=== PATIENT | female | born 1960 | race Caucasian/White ===

== ENCOUNTER 2020-09-02 11:50 | Outpatient (REF) | payer OTHER, SELFPAY | END 2020-09-02 11:51 | disposition home or self-care (01) | LOC: HO.LAB 11:50 | PROVIDERS: Visit Provider Internal Medicine | DX: Z20.828 Contact with and (suspected) exposure to other viral communicable diseases (principal) | CPT/HCPCS: C9803; U0003 ==

== ENCOUNTER 2022-06-28 18:23 | Emergency (ER) | payer OTHER, SELFPAY ==
[2022-06-28 18:28] VITALS: BP 135/80; PULSE 74; RESP 18; TEMP 36.2; O2SAT 100; BMI 27.4
[2022-06-28 21:49] LABS: MANUAL DIFF FLAG NO
[2022-06-28 21:52] LABS: Basophils Percent Auto 0.5 % (0-2); Eosinophils Absolute Auto 0.2 X10*3/uL (0.0-0.4); Eosinophils Percent Auto 2.7 % (0-4); Hematocrit 40.4 % (37.0-47.0); Hemoglobin 12.9 g/dl (12.0-16.0); Imm Gran Abs Auto 0.01 X10*3/uL (0.00-0.03); Imm Gran Pct Auto 0.2 % (0.0-0.4); Lymphocytes Percent Auto 30.7 % (20-40); Mean Corpuscular HGB Conc 31.9 g/dl (31.0-35.0); Mean Corpuscular Hemoglobin 26.3 pg (27.0-33.0); Mean Corpuscular Volume 82.3 fL (80.0-98.0); Mean Platelet Volume 9.8 fL (9.4-12.3); Monocytes Absolute Auto 0.6 X10*3/uL (0.1-1.2); Monocytes Percent Auto 9.2 % (2-11); Neutrophils Absolute Auto 3.7 x10*3/uL (2.0-8.3); Neutrophils Percent Auto 56.7 % (45-73); Platelet Count 257 X10*3/uL (160-400); Red Blood Count 4.91 X10*6/uL (4.20-5.50); Red Cell Distribution Width 12.6 % (11.0-16.0); White Blood Count 6.6 X10*3/uL (4.8-10.8)
[2022-06-28 22:11] LABS: Alanine Aminotransferase 27 U/L (0-31); Albumin Level 4.4 g/dL (3.5-5.0); Alkaline Phosphatase 79 U/L (39-117); Anion Gap 16 (12-20); Aspartate Amino Transferase 32 U/L (5-31); Bilirubin Total 0.3 mg/dL (0.0-1.0); Blood Urea Nitrogen 17 mg/dL (9-16); Calcium 9.7 mg/dL (8.4-10.2); Carbon Dioxide 23 mmol/L (22-29); Chloride 107 mmol/L (96-108); Creatinine Clr Calc Pharmacy 50.8; Estimated Glomerular Filt Rate 55; Glucose Random 181 mg/dL (60-115); Potassium 4.6 mmol/L (3.3-5.1); Sodium 141 mmol/L (135-145); Total Protein 7.4 g/dL (6.5-8.0)
--- NOTE | 2022-06-28 23:38 | ED.SKABFB ---
HPI - Skin/Abscess/Foreign Bdy General Chief complaint: Headache Stated complaint: lump on back Time Seen by Provider: 06/28/22 23:37 Source: patient Mode of arrival: ambulatory Limitations: language barrier History of Present Illness HPI narrative: 62-year-old female presents for evaluation for a lump on her back after removing a tick. She believes the tick has been there for approximately 3 days, and the tick was engorged when she removed it. She has itching at the site, and a lump, with fatigue and headache. MD complaint: rash and insect bite/sting Onset (ago): day(s) (3) Location: generalized Severity: moderate Severity scale (1-10): 5 Quality: aching, constant and pruritic Pain Consistency: constant Relieving factors: none Exacerbating factors: palpation and movement Context: witnessed insect bite Associated symptoms: itching, malaise and arthralgias Treatments prior to arrival: none Related Data Previous Rx's Medication Instructions Recorded doxycycline monohydrate 100 mg 100 mg PO BID 14 days #28 caps 06/29/22 capsule Allergies Allergy/AdvReac Type Severity Reaction Status Date / Time aspirin [Aspirin] Allergy Unknown STOMACH Verified 06/28/22 18:33 UPSET ibuprofen [From MOTRIN] Allergy Unknown epigastric Verified 06/28/22 18:33 upset From Pen-Vee K Allergy Mild RASH Uncoded 06/06/20 17:52 Review of Systems Review of Systems: Constitutional: No Fever, No Chills ENT/Mouth: No Ear Pain, No Hoarseness, No sore throat Eyes: No Eye Pain, No Swelling, No Redness, No Foreign Body Cardiovascular: No Chest Pain, No SOB Respiratory: No Cough, No Dyspnea Gastrointestinal: No Nausea, No Vomiting, No Diarrhea, No abdominal Pain Genitourinary: No Dysuria, No Hematuria Musculoskeletal: positive joint pain and body aches, No Joint Swelling Skin: No Skin lacerations, positive rash Neuro: No Weakness, No Numbness, No Paresthesias, No Loss of Consciousness, No Dizziness, positive Headache Psych: No Anxiety/Panic, No Depression Heme/Lymph: no easy bruising, no Lymphadenopathy Endocrine: No Polyuria, No Polydipsia Yes all other systems are reviewed and are negative [facility] Past Medical History Attestation statement: The following information was validated with the patient. Source: old records reviewed Social History Social History Advance Directives: No Advance Directives Information Provided: No Physical Exam Vital Signs: Vital Signs: Last Vital Signs Temp 97.2 F 06/28/22 18:28 Pulse 74 06/28/22 18:28 Resp 18 06/28/22 18:28 BP 135/80 06/28/22 18:28 Pulse Ox 100 06/28/22 18:28 O2 Del Method 06/28/22 18:28 BMI result Body Mass Index 27.4 Appearance: Alert. Oriented X3. No acute distress. Eyes: Pupils equal, round and reactive to light. ENT: Pharynx normal. Neck: Normal inspection. Neck supple. CVS: Normal heart rate and rhythm. Pulses normal. Respiratory: No respiratory distress. Breath sounds normal. Abdomen: Soft and nontender. Skin: Bull's-eye rash consistent with erythema migrans to the right flank, Skin warm and dry. Normal skin color. Normal skin turgor. Extremities: No lower extremity edema. Gait well-balanced well coordinated. Neuro: No motor deficit. No sensory deficit. Cranial nerves 2-12 intact. Course Course Course Narrative: 62-year-old female presents for rash consistent with erythema migrans, headache, myalgia, and fatigue after being bitten by a tick 3 days ago. She stated her symptoms started 2 days ago and noticed the tick last night. The tick was engorged, and she brought it in with her to the emergency department. She was in [place] when she got bitten by the tick, considering the high prevalence of Lyme disease in that area, I feel that treatment with doxycycline is appropriate based on her erythema migrans, headache, myalgia, and fatigue. Her CBC and chemistries are within normal limits, will order Lyme panel. Cranial nerves 2-12 intact, neurovascularly intact, alert oriented x4, lung sounds clear to auscultation all lobes. Afebrile, nontoxic. Patient does understand that if Lyme panel comes back positive for anaplasmosis that we will change her medication regimen to atovaquone and azithromycin. 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 Google translate utilized for discharge instructions. Patient verbalized understanding of and agrees plan for discharge home. Verbalizes understanding of signs and symptoms indicating need for emergent intervention. MDM - Skin/Abscess/Foreign Bdy MDM Narrative Medical decision making narrative: Lyme Differential Diagnosis Differential diagnosis: Likely abscess of skin or subcutaneous tissue, viral exanthem, urticaria, cellulitis, insect bites and contact dermatitis Medical Records Attestation: I reviewed the patient's medical records. Lab Data Attestation: I reviewed the patient's lab results. Result diagrams: 06/28/22 21:46 06/28/22 21:46 Labs: Lab Results 06/28/22 06/28/22 Range/Units 21:46 21:46 WBC 6.6 (4.8-10.8) X10*3/uL RBC 4.91 (4.20-5.50) X10*6/uL Hgb 12.9 (12.0-16.0) g/dl Hct 40.4 (37.0-47.0) % MCV 82.3 (80.0-98.0) fL MCH 26.3 L (27.0-33.0) pg MCHC 31.9 (31.0-35.0) g/dl RDW 12.6 (11.0-16.0) % Plt Count 257 (160-400) X10*3/uL MPV 9.8 (9.4-12.3) fL Immature Gran % (Auto) 0.2 (0.0-0.4) % Neut % (Auto) 56.7 (45-73) % Lymph % (Auto) 30.7 (20-40) % [place] % (Auto) 9.2 (2-11) % Eos % (Auto) 2.7 (0-4) % Baso % (Auto) 0.5 (0-2) % Lymph # (Auto) 2.0 (1.2-4.9) X10*3/uL [place] # (Auto) 0.6 (0.1-1.2) X10*3/uL Eos # (Auto) 0.2 (0.0-0.4) X10*3/uL Baso # (Auto) 0.0 (0.0-0.2) X10*3/uL Abs Immat Gran (auto) 0.01 (0.00-0.03) X10*3/uL Absolute Neuts (auto) 3.7 (2.0-8.3) x10*3/uL Absolute Nucleated RBC 0.000 (0.0-0.012) X10*3/uL Nucleated RBC % (auto) 0.0 (0.0-0.2) /100WBC Sodium 141 (135-145) mmol/L Potassium 4.6 (3.3-5.1) mmol/L Chloride 107 (96-108) mmol/L Carbon Dioxide 23 (22-29) mmol/L Anion Gap 16 (12-20) BUN 17 H (9-16) mg/dL Creatinine 1.01 (0.5-1.4) mg/dL Estim Creat Clear Calc 50.8 Estimated GFR 55 Random Glucose 181 H (60-115) mg/dL Calcium 9.7 (8.4-10.2) mg/dL Total Bilirubin 0.3 (0.0-1.0) mg/dL AST 32 H (5-31) U/L ALT 27 (0-31) U/L Alkaline Phosphatase 79 (39-117) U/L Total Protein 7.4 (6.5-8.0) g/dL Albumin 4.4 (3.5-5.0) g/dL Discharge Plan Discharge Clinical Impression: Tick bite of back, Acute Lyme disease, Erythema migrans (Lyme disease) Patient Disposition: Home, Self-Care Instructions: Lyme Disease (ED), Tick Bite (ED) Additional Instructions: You were evaluated for headache, muscle aches, fatigue, and a rash on your back after being bitten by a tick. Your symptoms are consistent with Lyme disease. We are treating you with doxycycline 100 mg twice a day for the next 14 days. Please take this medication as directed. This medication has a photosensitive reaction, please wear hat, sunscreen, and long sleeves while going outside to reduce at sun exposure. This medication will cause a rash with sun exposure. If your Lyme disease panel comes back positive for anaplasma OCs, we will change your medications to atovaquone and azithromycin. Follow-up with primary care physician as needed. Return to the emergency department for any new, concerning, or worsening symptoms. Prescriptions: New doxycycline monohydrate 100 mg capsule 100 mg PO BID 14 Days Qty: 28 0RF
[2022-06-29] VITALS: BP 177/97; PULSE 69; O2SAT 100
--- OUTSIDE RECORDS SUMMARY | 2022-06-29 | XMS_ITS | Continuity of Care Document ---
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, Aarti Arndt Primary Care Physician Encounter [facility] Date(s): 02/19/21 - 03/21/21 [facility] [address] [place] [id number]- Allergies, Adverse Reactions, Alerts Substance Reaction Severity Status doxycycline unknown Active aspirin GI Upset Active penicillins hives Persistent Moderate Active sulfonylureas rash Active thiazolidinediones eczema Active traMADOL1 [D]Nausea Active Stomach ache [D]Headache 1see visit note Immunizations Given and Recorded Vaccine Date Status Refusal Reason SARS-CoV-2 (COVID-19) mRNA BNT-162b2 vac 11/25/20 Given SARS-CoV-2 (COVID-19) mRNA BNT-162b2 vac 11/04/20 Given influenza virus vaccine, inactivated 06/27/20 Given influenza virus vaccine, inactivated 08/09/18 Given influenza virus vaccine, inactivated 07/12/17 Given influenza virus vaccine, inactivated 09/22/16 Given influenza virus vaccine, inactivated 07/10/14 Given influenza virus vaccine, inactivated1 06/08/13 Given influenza virus vaccine, inactivated2 07/06/12 Given influenza virus vaccine, inactivated3 07/29/11 Given influenza virus vaccine, inactivated4 07/02/10 Given Zoster Vaccine Live 12/10/14 Given pneumococcal 23-valent vaccine5 02/21/10 Given Influenza Vaccine (oldterm)6 12/19/09 Given tetanus-diphtheria toxoids (Td)7 12/19/09 Given 1Result Comment: [06/08/2013] Flulaval [id number]. VIS in [place] [id number] Note: VIS [id number] Note: VIS GIVEN VIS DATE 04/14/[id number] Note: VIS GIVEN 04/29/10 [id number] Note: vis [id number] Note: vis 04/287Admin Note: vis 03/25 Medications albuterol 0.083% inhalation solution 3 mL = 2.5 mg, Inhalation, 2 times a day, PRN Wheezing/Shortness of Breath, # 180 each, 3 Refills, Maintenance, 01/11/20 8:57:00 EDT, Inhalation Solution, [facility]/pharmacy #207, 157.48, cm, 07/12/19 10:08:00 EDT, Height Start Date: 01/11/20 Stop Date: 01/05/21 Status: OrderedArtificial Tears preserved solution 1 drops, Eyes, Both, 2 times a day, PRN for dry eyes, # 30 mL, 1 Refills, Maintenance, 10/02/20 13:31:00 EST, Solution, [facility]/pharmacy #207, Partial fill upon patient request if the prescription is for a schedule II opioid drug., 1 drops Eyes, Both 2 t... Start Date: 10/02/20 Status: Orderedcapsaicin 0.025% topical cream 1 application, Topically, 2 times a day, avoid contact with face and eyes, # 45 Gm, 5 Refills, Maintenance, 01/11/20 8:57:00 EDT, Cream, [facility]/pharmacy #207, instructions in [place], 1 application Topically 2 times a day,Instr:avoid contact with face a... Start Date: 01/11/20 Status: OrderedClaritin 10 mg oral tablet 10 mg, 1, tablet, By Mouth, Daily, Label in [place], # 90 tablet, Refills 3, Tot. Refills 3, Maintenance, 01/11/20 8:58:00 EDT, Route to Pharmacy Electronically, [facility]/pharmacy #207, 157.48, cm, 07/12/19 10:08:00 EDT, Height Start Date: 01/11/20 Stop Date: 01/05/21 Status: Ordereddocusate-senna 50 mg-187 mg oral tablet 2 tablet, By Mouth, Daily at bedtime, PRN Constipation, # 60 tablet, 11 Refills, Maintenance, 05/30/20 11:37:00 EDT, Tablet, [facility]/pharmacy #207, 2 tablet By Mouth Daily at bedtime,PRN:Constipation, 157.48, cm, 05/30/20 11:02:00 EDT, Height Start Date: 05/30/20 Status: OrderedFLUoxetine 20 mg oral capsule 20 mg, 1, capsule, By Mouth, Daily, # 90 capsule, Refills 3, Tot. Refills 3, Maintenance, 01/11/20 8:57:00 EDT, Route to Pharmacy Electronically, [facility]/pharmacy #[id number], 157.48, cm, 07/12/19 10:08:00 EDT, Height Start Date: 01/11/20 Status: OrderedFreestyle Lite Lancets See Instructions, # 100 each, Refills 11, Tot. Refills 11, Maintenance, Dx: check twice daily, 09/09/20 17:41:00 EST, Supply, 157.48, cm, 08/09/20 13:26:00 EST, Height, 57.73, kg, 07/19/20 15:56:00 EDT, Dry Weight Start Date: 09/09/20 Status: OrderedFreestyle Lite Monitor See Instructions, # 1 each, Maintenance, Dx: dm2, 1-2 times daily checks, 09/09/20 17:40:00 EST, Compound, 157.48, cm, 08/09/20 13:26:00 EST, Height, 57.73, kg, 07/19/20 15:56:00 EDT, Dry Weight Start Date: 09/09/20 Status: OrderedFreestyle Lite Test Strips See Instructions, # 100 each, Refills 11, Tot. Refills 11, Maintenance, Dx: check twice daily, 09/09/20 17:41:00 EST, Supply, 157.48, cm, 08/09/20 13:26:00 EST, Height, 57.73, kg, 07/19/20 15:56:00 EDT, Dry Weight Start Date: 09/09/20 Status: Orderedgabapentin 600 mg oral tablet 1 tablet = 600 mg, By Mouth, 2 times a day, # 90 tablet, 2 Refills, Maintenance, 05/02/20 9:12:00 EDT, Tablet, [facility]/pharmacy #[id number], note increased dose, 157.48, cm, 07/12/19 10:08:00 EDT, Height Start Date: 05/02/20 Status: Orderedhydrocortisone 2.5% topical cream 1 application, Topically, 3 times a day, apply to rash on neck. instr [place], # 20 Gm, 0 Refills, Maintenance, 02/25/21 16:46:00 EDT, Cream, [facility]/pharmacy #[id number], Partial fill upon patient request if the prescription is for a schedule II opioid drug.,... Start Date: 02/25/21 Status: OrderedLantus Solostar Pen 100 units/mL subcutaneous solution = 10 units, Subcutaneous Injection, Daily, # 10 mL, 11 Refills, Maintenance, 09/09/20 17:43:00 EST, Solution, [id number], [place]ian label please, 157.48, cm, 08/09/20 13:26:00 EST, Height, 57.73,kg, 07/19/20 15:56:00 EDT, Dry Weight Start Date: 09/09/20 Status: Orderedlevothyroxine 75 mcg (0.075 mg) oral tablet 1 tablet = 75 mcg, By Mouth, Daily, # 90 tablet, 3 Refills, Maintenance, 10/02/20 13:30:00 EST, Tablet, [id number], Dose changes from 88mcg to 75mcg 10/02/20, 157.48, cm, 08/09/20 13:26:00 EST, Height, 57.73, kg, 07/19/20 15:56:00 EDT, Dry Weight Start Date: 10/02/20 Status: Orderedlidocaine 5% topical film 1 patch, Topically, Daily, PRN Pain , Mild, remove after 12 hours, # 30 patch, 5 Refills, Maintenance, 05/02/20 9:17:00 EDT, Film, [id number], 1 patch Topically Daily,PRN:Pain , Mild,Instr:remove after 12 hours, 157.48, cm, 07/12/19 10:08:00 E... Start Date: 05/02/20 Status: Orderedlisinopril 5 mg oral tablet 5 mg, 1, tablet, By Mouth, Daily, to protect kidneys, # 90 tablet, Refills 3, Tot. Refills 3, Maintenance, 05/02/20 9:22:00 EDT, Route to Pharmacy Electronically, [facility]/pharmacy #207, 157.48, cm, 07/12/19 10:08:00 EDT, Height Start Date: 05/02/20 Status: OrderedmetFORMIN 500 mg oral tablet 1 tablet = 500 mg, By Mouth, 2 times a day, # 60 tablet, 5 Refills, Maintenance, 09/18/20 14:17:00 EST, Tablet, [facility]/pharmacy #[id number], dose change 08/09/20, 157.48, cm, 08/09/20 13:26:00 EST, Height, 57.73, kg, 07/19/20 15:56:00 EDT, Dry Weight Start Date: 09/18/20 Status: OrderedMiraLax oral powder for reconstitution = 17 Gm, By Mouth, Daily, dissolve in water before taking, # 527 Gm, 1 Refills, Maintenance, 01/11/20 8:59:00 EDT, REC Powder, [facility]/pharmacy #[id number], 17 Gm By Mouth Daily,Instr:dissolve in water before taking, 157.48, cm, 07/12/19 10:08:00 EDT, Height Start Date: 01/11/20 Status: Orderedmultivitamin Multiple Vitamins oral capsule 1 capsule, By Mouth, Daily, # 90 capsule, 3 Refills, Maintenance, 03/06/21 10:22:00 EDT, Capsule, [facility]/pharmacy #[id number], Partial fill upon patient request if the prescription is for a schedule II opioid drug., 1 capsule By Mouth Daily, 157.48, cm, ... Start Date: 03/06/21 Status: Orderedmupirocin 2% topical ointment 1 application, Topically, 2 times a day, apply to vulvar bump only. instr citizen [place], # 15 Gm, 0 Refills, Maintenance, 02/25/21 16:46:00 EDT, Ointment, [facility]/pharmacy #[id number], Partial fill upon patient request if the prescription is for a schedule II opioid... Start Date: 02/25/21 Stop Date: 03/11/21 Status: Orderedomeprazole 20 mg oral enteric coated capsule 1 capsule = 20 mg, By Mouth, Daily, # 90 capsule, 1 Refills, Maintenance, 01/08/21 14:58:00 EDT, EC Capsule, [facility]/pharmacy #207, 157.48, cm, 08/09/20 13:26:00 EST, Height, 57.73, kg, 07/19/20 15:56:00 EDT, Dry Weight Start Date: 01/08/21 Status: OrderedPen [place], 30 G x 8 mm BD Ultra Fine II See Instructions, # 30 each, Refills 11, Tot. Refills 11, Maintenance, Dx: Dm2 uncontrolled, once daily injection, 09/09/20 17:44:00 EST, Supply, 157.48, cm, 08/09/20 13:26:00 EST, Height, 57.73, kg, 07/19/20 15:56:00 EDT, Dry Weight Start Date: 09/09/20 Status: OrderedpredniSONE 10 mg oral tablet 4 tablet = 40 mg, By Mouth, Daily, # 12 tablet, 0 Refills, Maintenance, 02/19/21 5:10:00 EDT, Tablet, [facility]/pharmacy #207, Partial fill upon patient request if the prescription is for a schedule II opioid drug., 157.48, cm, 08/09/20 13:26:00 EST, Heigh... Start Date: 02/19/21 Stop Date: 02/22/21 Status: Orderedsimvastatin 20 mg oral tablet 20 mg, 1, tablet, By Mouth, Daily at bedtime, # 30 tablet, Refills 11, Tot. Refills 11, Maintenance,01/11/20 8:57:00 EDT, Route to Pharmacy Electronically, [facility]/pharmacy #[id number], 157.48, cm, 07/12/19 10:08:00 EDT, Height Start Date: 01/11/20 Status: OrderedsitaGLIPtin 100 mg oral tablet 1 tablet = 100 mg, By Mouth, Daily, # 30 tablet, 11 Refills, Maintenance, 01/11/20 8:57:00 EDT, Tablet, [facility]/pharmacy #[id number], 157.48, cm, 07/12/19 10:08:00 EDT, Height Start Date: 01/11/20 Status: OrderedVentolin HFA 108 mcg/inh inhalation aerosol with adapter 1 puffs, Inhalation, 4 times a day, PRN for wheezing, PLEASE DISPENSE VENTOLIN, NOT PROAIR, CLIENT DOES NOT TOLERATE PRO AIR, # 18 Gm, 11 Refills, Maintenance, 01/11/20 8:57:00 EDT, Aerosol, [id number], 157.48, cm, 07/12/19 10:08:00 EDT, Height Start Date: 01/11/20 Status: Ordered Problem List Condition Effective Dates Status Health Status Informant Anemia(Confirmed) Active Asthma(Confirmed)1 Active Cataract(Confirmed) Active Chronic mastoiditis(Confirmed)2 Active Diabetes mellitus - adult 10/22/11 Active onset(Confirmed) Ear pain(Confirmed)3, 4 Active Rash(Confirmed) Active Elevated sed rate(Confirmed) Active Hypothyroid(Confirmed) Active Impaired fasting glycaemia(Confirmed) 08/2009 Active Low back pain(Confirmed)1980 Active Lumbar spinal stenosis(Confirmed)6 Active Obstructive sleep apnea(Confirmed) 11/02/11 Active Snoring symptom(Confirmed)7 2011 Active 1per pulm [id number] Right ear surg 12/20103h/o hearing loss, rt side4 chronic, Rt, seen by ENT5s/p forcepts [id number] on 2010 [id number] to severe on 2011 sleep study Social History Social History Type Response Smoking Status Light tobacco smoker entered on: 11/23/13 Sex
--- OUTSIDE RECORDS SUMMARY | 2022-06-29 | XMS_ITS | Continuity of Care Document ---
:1960 Author Organization [facility] Address [address] [place] [address]- Care Team Providers Name Role Phone Cam BAÑUELOS, Aarti Arndt Primary Care Physician [place] [facility] [place]21 [facility] [address] [place] [id number]- Attending Physician: Not on Staff, Attending MD Allergies, Adverse Reactions, Alerts Substance Reaction Severity Status doxycycline unknown Active thiazolidinediones eczema Active traMADOL1 [D]Nausea Active Stomach ache [D]Headache aspirin GI Upset Active penicillins hives Persistent Moderate Active sulfonylureas rash Active 1see visit note Immunizations Given and Recorded [...] (Td)7 12/19/09 Given 1Result Comment: [06/08/2013] Flulaval [id number]. VIS in Bolivian [id number] Note: VIS [id number] Note: VIS GIVEN VIS DATE 04/14/1162dfiukzv3Zkuwn Note: VIS GIVEN 04/29/10 [id number] Note: vis [id number] Note: vis 04/287Admin Note: vis 03/25 Medications albuterol 0.083% inhalation solution 3 mL = 2.5 mg, Inhalation, 2 times a day, PRN Wheezing/Shortness of Breath, # 180 each, 3 Refills, Maintenance, 04/25/21 10:01:00 EDT, Inhalation Solution, [facility]/pharmacy #[id number], 157.48, cm, 03/06/21 9:17:00 EDT, Height, 57.73, kg, 07/19/20 15:56:00 EDT,... Start Date: 04/25/21 Stop Date: 04/20/22 Status: OrderedAlcohol Pads See Instructions, # 200 each, Refills 5, Tot. Refills 5, Maintenance, use as directed for Type 2 Diabetes Mellitus, twice daily checks, 06/09/21 11:15:00 EDT, Supply, 157.48, cm, 06/09/21 10:45:00 EDT,Height, 57.73, kg, 07/19/20 15:56:00 EDT, Dry Weight Start Date: 06/09/21 Stop Date: 12/06/21 Status: OrderedArtificial Tears preserved solution 1 drops, Eyes, Both, 2 times a day, PRN for dry eyes, # 30 mL, 2 Refills, Maintenance, 06/09/21 11:18:00 EDT, Solution, [facility]/pharmacy #[id number], Partial fill upon patient request if the prescription is for a schedule II opioid drug., 1 drops Eyes, Both 2 t... Start Date: 06/09/21 Status: Orderedcapsaicin 0.025% topical cream 1 application, Topically, 2 times a day, avoid contact with face and eyes, # 45 Gm, 5 Refills, Maintenance, 04/25/21 10:01:00 EDT, Cream, [id number], instructions in Bolivian, 1 application Topically 2 times a day,Instr:avoid contact with face... Start Date: 04/25/21 Status: OrderedClaritin 10 mg oral tablet 10 mg, 1, tablet, By Mouth, Daily, Label in Bolivian, # 90 tablet, Refills 3, Tot. Refills 3, Maintenance, 04/25/21 10:01:00 EDT, Route to Pharmacy Electronically, [facility]/pharmacy #[id number], 157.48, cm, 03/06/21 9:17:00 EDT, Height, 57.73, kg, 07/19/20 15:56:... Start Date: 04/25/21 Stop Date: 04/20/22 Status: Ordereddocusate-senna 50 mg-187 mg oral tablet 2 tablet, By Mouth, Daily at bedtime, PRN Constipation, # 60 tablet, 11 Refills, Maintenance, 04/25/21 10:03:00 EDT, Tablet, [facility]/pharmacy #[id number], 2 tablet By Mouth Daily at bedtime,PRN:Constipation, 157.48, cm, 03/06/21 9:17:00 EDT, Height, 57.73, kg,... Start Date: 04/25/21 Status: OrderedFLUoxetine 20 mg oral capsule 20 mg, 1, capsule, By Mouth, Daily, # 90 capsule, Refills 3, Tot. Refills 3, Maintenance, 04/25/21 10:01:00 EDT, [id number], cm, 03/06/21 9:17:00 EDT, Height, 57.73, kg, 07/19/20 15:56:00 EDT, Dry Weight Start Date: 04/25/21 Status: OrderedFreestyle Lite Lancets See Instructions, # [...] 2 Refills, Maintenance, 05/02/20 9:12:00 EDT, Tablet, [facility]/pharmacy #[id number], note increased dose, 157.48, cm, 07/12/19 10:08:00 EDT, Height Start Date: 05/02/20 Status: Orderedhydrocortisone 2.5% topical cream 1 application, Topically, 3 times a day, apply to rash on neck. instr telugu, # 20 Gm, 0 Refills, Maintenance, 04/28/21 19:30:00 EDT, Cream, [id number], Partial fill upon patient request if the prescription is for a schedule II opioid drug.,... Start Date: 04/28/21 Status: OrderedLantus Solostar Pen 100 units/mL subcutaneous solution = 18 units, Subcutaneous Injection, Daily, # 12 mL, 11 Refills, Maintenance, 06/17/21 12:13:00 EDT, Solution, [facility]/pharmacy #[id number], Bolivian label please. Dose increase to 18u 06/17/21, 157.48, cm, 06/09/21 10:45:00 EDT, Height, 57.73, kg, 07/19/20 15:56:... Start Date: 06/17/21 Status: Orderedlevothyroxine 75 mcg (0.075 mg) oral tablet 1 tablet = 75 mcg, By Mouth, Daily, # 90 tablet, 3 Refills, Maintenance, 10/02/20 13:30:00 EST, Tablet, [facility]/pharmacy #[id number], Dose changes from 88mcg to 75mcg 10/02/20, 157.48, cm, 08/09/20 13:26:00 EST, Height, 57.73, kg, 07/19/20 15:56:00 EDT, Dry Weight Start Date: 10/02/20 Status: Orderedlisinopril 5 mg oral tablet 5 mg, 1, tablet, By Mouth, Daily, to protect kidneys, # 90 tablet, Refills 0, Tot. Refills 0, Maintenance, 04/23/21 13:17:00 EDT, Route to Pharmacy Electronically, [facility]/pharmacy #[id number], 157.48, cm, 03/06/21 9:17:00 EDT, Height, 57.73, kg, 07/19/20 15:56... Start Date: 04/23/21 Status: OrderedmetFORMIN 500 mg oral tablet 1 tablet = 500 mg, By Mouth, 2 times a day, # 60 tablet, 5 Refills, Maintenance, 04/25/21 10:02:00 EDT, Tablet, [facility]/pharmacy #[id number], dose change 08/09/20, 157.48, cm, 03/06/21 9:17:00 EDT, Height, 57.73, kg, 07/19/20 15:56:00 EDT, Dry Weight Start Date: 04/25/21 Status: Orderedmultivitamin Multiple Vitamins oral capsule 1 capsule, By Mouth, Daily, # 90 capsule, 3 Refills, Maintenance, 03/06/21 10:22:00 EDT, Capsule, [facility]/pharmacy #[id number], Partial fill upon patient request if the prescription is for a schedule II opioid drug., 1 capsule By Mouth Daily, 157.48, cm, ... Start Date: 03/06/21 Status: Orderedmupirocin 2% topical ointment 1 application, Topically, 2 times a day, apply to vulvar bump only. instr telugu, # 15 Gm, 0 Refills, Maintenance, 02/25/21 16:46:00 EDT, Ointment, [facility]/pharmacy #[id number], Partial fill upon patient request if the prescription is for a schedule II opioid... Start Date: 02/25/21 Stop Date: 03/11/21 Status: Orderedomeprazole 20 mg oral enteric coated capsule 1 capsule = 20 mg, By Mouth, Daily, # 90 capsule, 1 Refills, Maintenance, 04/28/21 19:29:00 EDT, EC Capsule, [facility]/pharmacy #[id number], 157.48, cm, 04/28/21 17:35:00 EDT, Height, 57.73, kg, 07/19/20 15:56:00 EDT, Dry Weight Start Date: 04/28/21 Status: OrderedPen [place], 30 G x 8 mm BD Ultra Fine II See Instructions, # 30 each, Refills 11, Tot. Refills 11, Maintenance, Dx: Dm2 uncontrolled, once daily injection, 09/09/20 17:44:00 EST, Supply, 157.48, cm, 08/09/20 13:26:00 EST, Height, 57.73, kg, 07/19/20 15:56:00 EDT, Dry Weight Start Date: 09/09/20 Status: Orderedsimvastatin 20 mg oral tablet 20 mg, 1, tablet, By Mouth, Daily at bedtime, # 30 tablet, Refills 11, Tot. Refills 11, Maintenance,04/25/21 10:01:00 EDT, Route to Pharmacy Electronically, [facility]/pharmacy #[id number], 157.48, cm, 03/06/21 9:17:00 EDT, Height, 57.73, kg, 07/19/20 15:56:00 ED... Start Date: 04/25/21 Status: OrderedsitaGLIPtin 100 mg oral tablet 1 tablet = 100 mg, By Mouth, Daily, # 30 tablet, 11 Refills, Maintenance, 04/25/21 10:01:00 EDT, Tablet, [facility]/pharmacy #[id number], 157.48, cm, 03/06/21 9:17:00 EDT, Height, 57.73, kg, 07/19/20 15:56:00 EDT, Dry Weight Start Date: 04/25/21 Status: OrderedVentolin HFA 108 mcg/inh inhalation aerosol with adapter 1 puffs, Inhalation, 4 times a day, PRN for wheezing, PLEASE DISPENSE VENTOLIN, NOT PROAIR, CLIENT DOES NOT TOLERATE PRO AIR, # 18 Gm, 11 Refills, Maintenance, 04/25/21 10:01:00 EDT, Aerosol, [facility]/pharmacy #[id number], 157.48, cm, 03/06/21 9:17:00 Yeni WADE Start Date: 04/25/21 Status: Ordered Problem List Condition Effective Dates Status Health Status Informant Anemia(Confirmed) Active Asthma(Confirmed)1 Active Cataract(Confirmed) Active Chronic mastoiditis(Confirmed)2 Active Diabetes mellitus - adult 10/22/11 Active onset(Confirmed) Ear pain(Confirmed)3, 4 Active Rash(Confirmed) Active Elevated sed rate(Confirmed) Active Hypothyroid(Confirmed) Active Impaired fasting glycaemia(Confirmed) 08/2009 Active Low back pain(Confirmed)1980 Active Lumbar spinal stenosis(Confirmed)6 Active Obstructive sleep apnea(Confirmed) 11/02/11 Active Snoring symptom(Confirmed)7 2011 Active 1per -2009 pulm [id number]/p Right ear surg 12/20103h/o hearing loss, rt side4 chronic, Rt, seen by ENT5s/p forcepts [id number] on 2010 [id number] to severe on 2011 sleep study Social History Social History Type Response Smoking Status Light tobacco smoker entered on: 11/23/13 Sex
--- OUTSIDE RECORDS SUMMARY | 2022-06-29 | XMS_ITS | Continuity of Care Document ---
:1960 Author Organization [facility] Address [address] [place] [address]- Care Team Providers Name Role Phone Cam BAÑUELOS, Aarti Arndt Primary Care Physician Encounter [facility] Date(s): 11/18/20 - 12/18/[address] [address] Attending Physician: Admtr, Aimee Admitting Physician: Admtr, Ar8 Referring Physician: Admtr, Ar8 Allergies, Adverse Reactions, Alerts Substance Reaction Severity Status doxycycline unknown Active aspirin GI Upset Active traMADOL1 [D]Nausea Active Stomach ache [D]Headache penicillins hives Persistent Moderate Active sulfonylureas rash Active thiazolidinediones eczema Active 1see visit note Immunizations Given and [...] (Td)7 12/19/09 Given 1Result Comment: [06/08/2013] Flulaval 1605-5552. VIS in Serbian [id number] Note: VIS [id number] Note: VIS GIVEN VIS DATE 04/14/[id number] Note: VIS GIVEN 04/29/10 pgvewus8Lpmpl Note: vis [id number] Note: vis 04/287Admin Note: vis 03/25 Medications albuterol 0.083% inhalation solution 3 mL = 2.5 mg, Inhalation, 2 times a day, PRN Wheezing/Shortness of Breath, # 180 each, 3 Refills, Maintenance, 01/11/20 8:57:00 EDT, Inhalation Solution, [facility]/pharmacy #[id number], 157.48, cm, 07/12/19 10:08:00 EDT, Height Start Date: 01/11/20 Stop Date: 01/05/21 Status: OrderedArtificial Tears preserved solution 1 drops, Eyes, Both, 2 times a day, PRN for dry eyes, # 30 mL, 1 Refills, Maintenance, 10/02/20 13:31:00 EST, Solution, [facility]/pharmacy #[id number], Partial fill upon patient request if the prescription is for a schedule II opioid drug., 1 drops Eyes, Both 2 t... Start Date: 10/02/20 Status: Orderedcapsaicin 0.025% topical cream 1 application, Topically, 2 times a day, avoid contact with face and eyes, # 45 Gm, 5 Refills, Maintenance, 01/11/20 8:57:00 EDT, Cream, [facility]/pharmacy #[id number], instructions in Serbian, 1 application Topically 2 times a day,Instr:avoid contact with face a... Start Date: 01/11/20 Status: OrderedClaritin 10 mg oral tablet 10 mg, 1, tablet, By Mouth, Daily, Label in Serbian, # 90 tablet, Refills 3, Tot. Refills 3, Maintenance, 01/11/20 8:58:00 EDT, Route to Pharmacy Electronically, [facility]/pharmacy #[id number], 157.48, cm, 07/12/19 10:08:00 EDT, Height Start Date: 01/11/20 Stop Date: 01/05/21 Status: Ordereddocusate-senna 50 mg-187 mg oral tablet 2 tablet, By Mouth, Daily at bedtime, PRN Constipation, # 60 tablet, 11 Refills, Maintenance, 05/30/20 11:37:00 EDT, Tablet, [facility]/pharmacy #[id number], 2 tablet By Mouth Daily at bedtime,PRN:Constipation, 157.48, cm, 05/30/20 11:02:00 EDT, Height Start Date: 05/30/20 Status: OrderedFLUoxetine 20 mg oral capsule 20 mg, 1, capsule, By Mouth, Daily, # 90 capsule, Refills 3, Tot. Refills 3, Maintenance, 01/11/20 8:57:00 EDT, Route to Pharmacy Electronically, [facility]/pharmacy #[id number], 157.48, cm, 07/12/19 10:08:00 EDT, Height [...] 1 tablet = 600 mg, By Mouth, 3 times a day, # 90 tablet, 2 Refills, Maintenance, 05/02/20 9:12:00 EDT, Tablet, [facility]/pharmacy #[id number], note increased dose, 157.48, cm, 07/12/19 10:08:00 EDT, Height Start Date: 05/02/20 Status: OrderedLantus Solostar Pen 100 units/mL subcutaneous solution = 10 units, Subcutaneous Injection, Daily, # 10 mL, 11 Refills, Maintenance, 09/09/20 17:43:00 EST, Solution, [facility]/pharmacy #[id number], Serbian label please, 157.48, cm, 08/09/20 13:26:00 EST, Height, 57.73,kg, 07/19/20 15:56:00 EDT, Dry Weight Start Date: 09/09/20 Status: Orderedlevothyroxine 75 mcg (0.075 mg) oral tablet 1 tablet = 75 mcg, By Mouth, Daily, # 90 tablet, 3 Refills, Maintenance, 10/02/20 13:30:00 EST, Tablet, [facility]/pharmacy #207, Dose changes from 88mcg to 75mcg 10/02/20, 157.48, cm, 08/09/20 13:26:00 EST, Height, 57.73, kg, 07/19/20 15:56:00 EDT, Dry Weight Start Date: 10/02/20 Status: Orderedlidocaine 5% topical film 1 patch, Topically, Daily, PRN Pain , Mild, remove after 12 hours, # 30 patch, 5 Refills, Maintenance, 05/02/20 9:17:00 EDT, Film, [facility]/pharmacy #207, 1 patch Topically Daily,PRN:Pain , Mild,Instr:remove after 12 hours, 157.48, cm, 07/12/19 10:08:00 E... Start Date: 05/02/20 Status: Orderedlisinopril 5 mg oral tablet 5 mg, 1, tablet, By Mouth, Daily, to protect kidneys, # 90 tablet, Refills 3, Tot. Refills 3, Maintenance, 05/02/20 9:22:00 EDT, Route to Pharmacy Electronically, [facility]/pharmacy #207, 157.48, cm, 07/12/19 10:08:00 EDT, Height Start Date: 05/02/20 Status: OrderedmetFORMIN 500 mg oral tablet 1 tablet = 500 mg, By Mouth, 2 times a day, # 60 tablet, 5 Refills, Maintenance, 09/18/20 14:17:00 EST, Tablet, [facility]/pharmacy #207, dose change 08/09/20, 157.48, cm, 08/09/20 13:26:00 EST, Height, 57.73, kg, 07/19/20 15:56:00 EDT, Dry Weight Start Date: 09/18/20 Status: OrderedMiraLax oral powder for reconstitution = 17 Gm, By Mouth, Daily, dissolve in water before taking, # 527 Gm, 1 Refills, Maintenance, 01/11/20 8:59:00 EDT, REC Powder, [facility]/pharmacy #[id number], 17 Gm By Mouth Daily,Instr:dissolve in water before taking, 157.48, cm, 07/12/19 10:08:00 EDT, Height Start Date: 01/11/20 Status: Orderedomeprazole 20 mg oral enteric coated capsule 1 capsule = 20 mg, By Mouth, Daily, # 90 capsule, 1 Refills, Maintenance, 04/08/20 13:48:00 EDT, EC Capsule, [facility]/pharmacy #[id number], 157.48, cm, 07/12/19 10:08:00 EDT, Height Start Date: 04/08/20 Status: OrderedPen [place], 30 G x 8 mm BD Ultra [...] Maintenance,01/11/20 8:57:00 EDT, Route to Pharmacy Electronically, [facility]/pharmacy #207, 157.48, cm, 07/12/19 10:08:00 EDT, Height Start Date: 01/11/20 Status: OrderedsitaGLIPtin 100 mg oral tablet 1 tablet = 100 mg, By Mouth, Daily, # 30 tablet, 11 Refills, Maintenance, 01/11/20 8:57:00 EDT, Tablet, [facility], 157.48, cm, 07/12/19 10:08:00 EDT, Height Start Date: 01/11/20 Status: OrderedTrulicity Pen 0.75 mg/0.5 mL subcutaneous solution 0.5 mL = 0.75 mg, Subcutaneous Injection, Every week, # 2.5 mL, 5 Refills, Maintenance, 08/09/20 13:59:00 EST, Solution, [id number], Partial fill upon patient request, 157.48, cm, 08/09/20 13:26:00 EST, Height, 57.73, kg, 07/19/20 15:56:00 EDT... Start Date: 08/09/20 Status: OrderedVentolin HFA 108 mcg/inh inhalation aerosol with adapter 1 puffs, Inhalation, 4 times a day, PRN for wheezing, PLEASE DISPENSE VENTOLIN, NOT PROAIR, CLIENT DOES NOT TOLERATE PRO AIR, # 18 Gm, 11 Refills, Maintenance, 01/11/20 8:57:00 EDT, Aerosol, [facility], 157.48, cm, 07/12/19 10:08:00 EDT, Height Start Date: 01/11/20 Status: Ordered Problem List Condition Effective Dates Status Health Status Informant Anemia(Confirmed) Active Asthma(Confirmed)1 Active Cataract(Confirmed) Active Chronic mastoiditis(Confirmed)2 Active Diabetes mellitus - adult 10/22/11 Active onset(Confirmed) Ear pain(Confirmed)3, 4 Active Rash(Confirmed) Active Hypothyroid(Confirmed) Active Impaired fasting glycaemia(Confirmed) 08/2009 Active Low back pain(Confirmed)1980 Active Lumbar spinal stenosis(Confirmed)6 Active Obstructive sleep apnea(Confirmed) 11/02/11 Active Snoring symptom(Confirmed)7 2011 Active 1per -2009 pulm [id number]/p Right ear surg 12/20103h/o hearing loss, rt side4 chronic, Rt, seen by ENT5s/p forcepts [id number] on 2010 [id number] to severe on 2011 sleep study Social History Social History Type Response Smoking Status Light tobacco smoker entered on: 11/23/13 Sex
--- OUTSIDE RECORDS SUMMARY | 2022-06-29 00:01 | XMS_ITS | Continuity of Care Document ---
:1960 Author Organization [facility] Address [address] [place] [address]- Care Team Providers Name Role Phone Cam BAÑUELOS, Aarti Arndt Primary Care Physician Encounter [facility] Date(s): 05/06/21 - 06/05/21 [facility] [address] [place] [id number] Allergies, Adverse Reactions, Alerts Substance Reaction Severity [...] (Td)7 12/19/09 Given 1Result Comment: [06/08/2013] Flulaval [id number]. VIS in Qatari [id number] Note: VIS [id number] Note: VIS GIVEN VIS DATE 04/14/1115mujamwz5Hsfss Note: VIS GIVEN 04/29/10 [id number] Note: vis [id number] Note: vis dmin Note: vis 03/25 Medications albuterol 0.083% inhalation solution 3 mL = 2.5 mg, Inhalation, 2 times a day, PRN Wheezing/Shortness of Breath, # 180 each, 3 Refills, Maintenance, 04/25/21 10:01:00 EDT, Inhalation Solution, [facility]/pharmacy #[id number], 157.48, cm, 03/06/21 9:17:00 EDT, Height, 57.73, kg, 07/19/20 15:56:00 EDT,... Start Date: 04/25/21 Stop Date: 04/20/22 Status: OrderedArtificial Tears preserved solution 1 drops, Eyes, Both, 2 times a day, PRN for dry eyes, # 30 mL, 1 Refills, Maintenance, 10/02/20 13:31:00 EST, Solution, [facility]/pharmacy #[id number], Partial fill upon patient request if the prescription is for a schedule II opioid drug., 1 drops Eyes, Both 2 t... Start Date: 10/02/20 Status: Orderedcapsaicin 0.025% topical cream 1 application, Topically, 2 times a day, avoid contact with face and eyes, # 45 Gm, 5 Refills, Maintenance, 04/25/21 10:01:00 EDT, Cream, [facility]/pharmacy #[id number], instructions in Qatari, 1 application Topically 2 times a day,Instr:avoid contact with face... Start Date: 04/25/21 Status: OrderedClaritin 10 mg oral tablet 10 mg, 1, tablet, By Mouth, Daily, Label in Qatari, # 90 tablet, Refills 3, Tot. Refills 3, Maintenance, 04/25/21 10:01:00 EDT, Route to Pharmacy Electronically, [facility]/pharmacy #207, 157.48, cm, 03/06/21 9:17:00 EDT, Height, 57.73, kg, 07/19/20 15:56:... Start Date: 04/25/21 Stop Date: 04/20/22 Status: Ordereddocusate-senna 50 mg-187 mg oral tablet 2 tablet, By Mouth, Daily at bedtime, PRN Constipation, # 60 tablet, 11 Refills, Maintenance, 04/25/21 10:03:00 EDT, Tablet, [facility]/pharmacy #[id number], 2 tablet By Mouth Daily at bedtime,PRN:Constipation, 157.48, cm, 03/06/21 9:17:00 EDT, Height, 57.73, kg,... Start Date: 04/25/21 Status: OrderedFLUoxetine 20 mg oral capsule 20 mg, 1, capsule, By Mouth, Daily, # 90 capsule, Refills 3, Tot. Refills 3, Maintenance, 04/25/21 10:01:00 EDT, Route to Pharmacy Electronically, [facility]/pharmacy #[id number], 157.48, cm, 03/06/21 9:17:00 EDT, Height, [...] 2 Refills, Maintenance, 05/02/20 9:12:00 EDT, Tablet, [facility]/pharmacy #207, note increased dose, 157.48, cm, 07/12/19 10:08:00 EDT, Height Start Date: 05/02/20 Status: Orderedhydrocortisone 2.5% topical cream 1 application, Topically, 3 times a day, apply to rash on neck. instr beninese, # 20 Gm, 0 Refills, Maintenance, 04/28/21 19:30:00 EDT, Cream, [facility]/pharmacy #[id number], Partial fill upon patient request if the prescription is for a schedule II opioid drug.,... Start Date: 04/28/21 Status: OrderedLantus Solostar Pen 100 units/mL subcutaneous solution = 10 units, Subcutaneous Injection, Daily, # 10 mL, 11 Refills, Maintenance, 09/09/20 17:43:00 EST, Solution, [facility]/pharmacy #207, Qatari label please, 157.48, cm, 08/09/20 13:26:00 EST, Height, 57.73,kg, 07/19/20 15:56:00 EDT, Dry Weight Start Date: 09/09/20 Status: Orderedlevothyroxine 75 mcg (0.075 mg) oral tablet 1 tablet = 75 mcg, By Mouth, Daily, # 90 tablet, 3 Refills, Maintenance, 10/02/20 13:30:00 EST, Tablet, [facility]/pharmacy #[id number], Dose changes from 88mcg to 75mcg 10/02/20, 157.48, cm, 08/09/20 13:26:00 EST, Height, 57.73, kg, 07/19/20 15:56:00 EDT, Dry Weight Start Date: 10/02/20 Status: Orderedlisinopril 5 mg oral tablet 5 mg, 1, tablet, By Mouth, Daily, to protect kidneys, # 90 tablet, Refills 0, Tot. Refills 0, Maintenance, 04/23/21 13:17:00 EDT, Route to Pharmacy Electronically, [facility]/pharmacy #207, 157.48, cm, 03/06/21 9:17:00 EDT, Height, 57.73, kg, 07/19/20 15:56... Start Date: 04/23/21 Status: OrderedmetFORMIN 500 mg oral tablet 1 tablet = 500 mg, By Mouth, 2 times a day, # 60 tablet, 5 Refills, Maintenance, 04/25/21 10:02:00 EDT, Tablet, [id number], dose change 08/09/20, 157.48, cm, 03/06/21 9:17:00 EDT, Height, 57.73, kg, 07/19/20 15:56:00 EDT, Dry Weight Start Date: 04/25/21 Status: Orderedmultivitamin Multiple Vitamins oral capsule 1 capsule, By Mouth, Daily, # 90 capsule, 3 Refills, Maintenance, 03/06/21 10:22:00 EDT, Capsule, [id number], Partial fill upon patient request if the prescription is for a schedule II opioid drug., 1 capsule By Mouth Daily, 157.48, cm, ... Start Date: 03/06/21 Status: Orderedmupirocin 2% topical ointment 1 application, Topically, 2 times a day, apply to vulvar bump only. instr beninese, # 15 Gm, 0 Refills, Maintenance, 02/25/21 16:46:00 EDT, Ointment, [id number], Partial fill upon patient request if the prescription is for a schedule II opioid... Start Date: 02/25/21 Stop Date: 03/11/21 Status: Orderedomeprazole 20 mg oral enteric coated capsule 1 capsule = 20 mg, By Mouth, Daily, # 90 capsule, 1 Refills, Maintenance, 04/28/21 19:29:00 EDT, EC Capsule, [id number], 157.48, cm, 04/28/21 17:35:00 EDT, Height, 57.73, kg, 07/19/20 15:56:00 EDT, Dry Weight Start Date: 04/28/21 Status: OrderedPen [place], 30 G x 8 mm BD Ultra [...] Maintenance,04/25/21 10:01:00 EDT, Route to Pharmacy Electronically, [facility]/pharmacy #[id number], 157.48, cm, 03/06/21 9:17:00 EDT, Height, 57.73, kg, 07/19/20 15:56:00 ED... Start Date: 04/25/21 Status: OrderedsitaGLIPtin 100 mg oral tablet 1 tablet = 100 mg, By Mouth, Daily, # 30 tablet, 11 Refills, Maintenance, 04/25/21 10:01:00 EDT, Tablet, [facility]/pharmacy #[id number], 157.48, cm, 03/06/21 9:17:00 EDT, Height, 57.73, kg, 07/19/20 15:56:00 EDT, Dry Weight Start Date: 04/25/21 Status: OrderedVentolin HFA 108 mcg/inh inhalation aerosol with adapter 1 puffs, Inhalation, 4 times a day, PRN for wheezing, PLEASE DISPENSE VENTOLIN, NOT PROAIR, CLIENT DOES NOT TOLERATE PRO AIR, # 18 Gm, 11 Refills, Maintenance, 04/25/21 10:01:00 EDT, Aerosol, [facility]/pharmacy #[id number], 157.48, cm, 03/06/21 9:17:00 EDT, Heigh... Start Date: 04/25/21 Status: Ordered Problem List [...] 11/02/11 Active Snoring symptom(Confirmed)7 2011 Active 1per 8-2009 pulm [id number]/p Right ear surg 12/20103h/o hearing loss, rt side4 chronic, Rt, seen by ENT5s/p forcepts [id number] on 2010 [id number] to severe on 2011 sleep study Social History Social History Type Response Smoking Status Light tobacco smoker entered on: 11/23/13 Sex
--- OUTSIDE RECORDS SUMMARY | 2022-06-29 00:01 | XMS_ITS | Continuity of Care Document ---
:1960 Author Organization [facility] Address [address] [place] [address]- Care Team Providers Name Role Phone Cam BAÑUELOS, Aarti Arndt Primary Care Physician [facility]): [facility] - 11/24/19 [facility] [address] [place] [address]- [facility] Attending Physician: Aimee Head Admitting Physician: Aimee Head Referring Physician: AdmtrAimee Allergies, Adverse Reactions, Alerts Substance Reaction Severity Status doxycycline Active aspirin Active penicillins hives Persistent Moderate Active sulfonylureas rash Active thiazolidinediones eczema Active traMADOL1 [D]Nausea Active Stomach ache [D]Headache 1see visit note Immunizations Given and Recorded Vaccine Date Status Refusal Reason influenza virus vaccine, inactivated 08/09/18 Given influenza [...] (Td)7 12/19/09 Given 1Result Comment: [06/08/2013] Flulaval [id number]. VIS in Turkish [id number] Note: VIS [id number] Note: VIS GIVEN VIS DATE 04/14/1132edqesak2Blabl Note: VIS GIVEN 04/29/10 [id number] Note: vis [id number] Note: vis 04/287Admin Note: vis 03/25 Medications albuterol 0.083% inhalation solution 3 mL = 2.5 mg, Inhalation, 2 times a day, PRN Wheezing/Shortness of Breath, # 180 each, 3 Refills, Maintenance, 01/17/19 8:54:43 EDT, Inhalation Solution Start Date: 01/17/19 Stop Date: 01/12/20 Status: Orderedbetamethasone topical dipropionate 0.05% cream See Instructions, # 45 Gm, Refills 2 Tot. Refills 2, APLIQUE AL AREA AFECTADA DOS VECES AL PRINCE, [facility]/pharmacy #207 Start Date: 06/25/19 Status: Orderedcapsaicin 0.025% topical cream 1 application, Topically, 2 times a day, avoid contact with face and eyes, # 45 Gm, 5 Refills, Maintenance, 01/17/19 9:05:45 EDT, Cream, instructions in Turkish, 1 application Topically 2 times a day,Instr:avoid contact with face and eyes Start Date: 01/17/19 Status: OrderedClaritin 10 mg oral tablet 10 mg, 1, tablet, By Mouth, Daily, Label in Turkish, # 90 tablet, Refills 3, Tot. Refills 3, Maintenance, 01/17/19 8:50:07 EDT, Route to Pharmacy Electronically, [id number], [facility]/pharmacy #[id number] Start Date: 01/17/19 Stop Date: 01/12/20 Status: Ordereddocusate-senna 50 mg-187 mg oral tablet 2 tablet, By Mouth, Daily at bedtime, PRN Constipation, # 60 tablet, 11 Refills, Maintenance, 07/12/19 11:18:26 EDT, Tablet, 2 tablet By Mouth Daily at bedtime,PRN:Constipation Start Date: 07/12/19 Status: Orderedestradiol 0.1 mg/g vaginal cream = 1 Gm, Vaginally, Daily at bedtime, # 42 Gm, 0 Refills, Maintenance, 08/26/18 9:04:33 EST Start Date: 08/26/18 Status: OrderedFLUoxetine 20 mg oral capsule 20 mg, 1, capsule, By Mouth, Daily, # 90 capsule, Refills 3, Tot. Refills 3, Maintenance, 01/17/19 8:53:21 EDT, Route to Pharmacy Electronically, [id number], [facility]/pharmacy #[id number] Start Date: 01/17/19 Status: OrderedFreestyle Lancet Device Freestyle Lancet Device, See Instructions, PRN 3 times daily, # 1 each, Refills 0, Tot. Refills 0, Maintenance, ICD 10: E11 use devide to check blood sugar 3 times a day., 05/30/19 10:27:00 EDT, Compound Start Date: 05/30/19 Status: OrderedFreestyle Lite Monitor See Instructions, # 1 each, Maintenance, Dx: dm2, 1-2 times daily checks, 07/12/19 11:21:40 EDT, Compound Start Date: 07/12/19 Status: OrderedFREESTYLE LITE TEST STRIP See Instructions, # 100 Unknown, Refills 11 Tot. Refills 11, DM E11.9 USE TO CHECK BLOOD SUGAR THREETIMES PER DAY, [facility]/pharmacy #[id number] Start Date: 05/11/19 Status: Orderedgabapentin 300 mg oral capsule See Instructions, # 30 capsule, Refills 5 Tot. Refills 5, TAKE 1 CAPSULE BY MOUTH DAILY AT BEDTIME, [facility]/pharmacy #[id number] Start Date: 05/11/19 Status: Orderedibuprofen 600 mg oral tablet 600 mg, 1, tablet, By Mouth, 3 times a day, PRN, with food or milk Label in german, # 90 tablet, Refills 3, Tot. Refills 3, Maintenance, as needed for pain, 03/24/19 12:01:44 EDT, Route to Pharmacy Electronically, [id number]... Start Date: 03/24/19 Status: Orderedlevothyroxine 0.088 mg oral tablet 1 tablet = 88 mcg, By Mouth, Daily, # 90 tablet, 3 Refills, Maintenance, 07/12/19 11:19:40 EDT, Tablet, instead of capsules Start Date: 07/12/19 Status: OrderedmetFORMIN 750 mg oral tablet, extended release 1 tablet = 750 mg, By Mouth, Daily, # 30 tablet, 11 Refills, Maintenance, 01/17/19 8:52:40 EDT, ER Tablet Start Date: 01/17/19 Status: OrderedMiraLax oral powder for reconstitution = 17 Gm, By Mouth, Daily, dissolve in water before taking, # 527 Gm, 1 Refills, Maintenance, 10/25/18 8:56:04 EST, REC Powder, 17 Gm By Mouth Daily,Instr:dissolve in water before taking Start Date: 10/25/18 Status: Orderedomeprazole 20 mg oral enteric coated capsule 1 capsule = 20 mg, By Mouth, Daily, # 90 capsule, 1 Refills, Maintenance, 07/12/19 11:20:27 EDT, EC Capsule Start Date: 07/12/19 Status: Orderedsimvastatin 20 mg oral tablet 20 mg, 1, tablet, By Mouth, Daily at bedtime, # 30 tablet, Refills 11, Tot. Refills 11, Maintenance,01/17/19 8:50:20 EDT, Route to Pharmacy Electronically, [id number], [facility]/pharmacy #[id number] Start Date: 01/17/19 Status: OrderedsitaGLIPtin 100 mg oral tablet 1 tablet = 100 mg, By Mouth, Daily, # 30 tablet, 11 Refills, Maintenance, 01/17/19 8:50:20 EDT, Tablet Start Date: 01/17/19 Status: OrderedVentolin HFA 108 mcg/inh inhalation aerosol with adapter 1 puffs, Inhalation, 4 times a day, PRN for wheezing, PLEASE DISPENSE VENTOLIN, NOT PROAIR, CLIENT DOES NOT TOLERATE PRO AIR, # 18 Gm, 11 Refills, Maintenance, 01/17/19 8:50:36 EDT, Aerosol Start Date: 01/17/19 Status: Ordered Problem List Condition Effective Dates Status Health Status Informant Anemia(Confirmed) Active Asthma(Confirmed)1 Active Cataract(Confirmed) Active Chronic mastoiditis(Confirmed)2 Active Diabetes mellitus - adult 10/22/11 Active onset(Confirmed) Ear pain(Confirmed)3, 4 Active Rash(Confirmed) Active Hypothyroid(Confirmed) Active Impaired fasting glycaemia(Confirmed) 08/2009 Active Low back pain(Confirmed)1980 Active Lumbar spinal stenosis(Confirmed)6 Active Obstructive sleep apnea(Confirmed) 11/02/11 Active Snoring symptom(Confirmed)7 2011 Active 1per 8-2009 pulm mdqav1K/p Right ear surg 12/20103h/o hearing loss, rt side4 chronic, Rt, seen by ENT5s/p forcepts [id number] on 2010 [id number] to severe on 2011 sleep study Procedures Procedure Date Related Diagnosis Body Site Status COLONOSCOPY1 12/04/09 Completed 1NO COMPLICATIONS. REPEAT IN 10 YEARS. Social History Social History Type Response Smoking Status Light tobacco smoker entered on: 11/23/13 Sex
--- OUTSIDE RECORDS SUMMARY | 2022-06-29 00:01 | XMS_ITS | Continuity of Care Document ---
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 VIS in Niuean [id number] Note: VIS [id number] Note: VIS GIVEN VIS DATE 04/14/1146brheclu9Lhuzy Note: VIS GIVEN 04/29/10 [id number] Note: vis [id number] Note: vis 04/287Admin Note: vis 03/25 Medications albuterol 0.083% inhalation solution 3 mL = 2.5 mg, Inhalation, 2 times a day, PRN Wheezing/Shortness of Breath, # 180 each, 3 Refills, Maintenance, 01/11/20 8:57:00 EDT, Inhalation Solution, [facility]/pharmacy #207, 157.48, cm, 07/12/19 10:08:00 EDT, Height Start Date: 01/11/20 Stop Date: 01/05/21 Status: Orderedbetamethasone topical dipropionate 0.05% cream See Instructions, # 45 Gm, Refills 2 Tot. Refills 2, APLIQUE AL AREA AFECTADA DOS VECES AL PRINCE, [facility]/pharmacy #207 Start Date: 06/25/19 Status: Orderedcapsaicin 0.025% topical cream 1 application, Topically, 2 times a day, avoid contact with face and eyes, # 45 Gm, 5 Refills, Maintenance, 01/11/20 8:57:00 EDT, Cream, [facility]/pharmacy #207, instructions in Niuean, 1 application Topically 2 times a day,Instr:avoid contact with face a... Start Date: 01/11/20 Status: OrderedClaritin 10 mg oral tablet 10 mg, 1, tablet, By Mouth, Daily, Label in Niuean, # 90 tablet, Refills 3, Tot. Refills 3, Maintenance, 01/11/20 8:58:00 EDT, Route to Pharmacy Electronically, [facility]/pharmacy #207, 157.48, cm, 07/12/19 10:08:00 EDT, Height Start Date: 01/11/20 Stop Date: 01/05/21 Status: Ordereddocusate-senna 50 mg-187 mg oral tablet 2 tablet, By Mouth, Daily at bedtime, PRN Constipation, # 60 tablet, 11 Refills, Maintenance, 07/12/19 11:18:26 EDT, Tablet, 2 tablet By Mouth Daily at bedtime,PRN:Constipation Start Date: 07/12/19 Status: OrderedFLUoxetine 20 mg oral capsule 20 mg, 1, capsule, By Mouth, Daily, # 90 capsule, Refills 3, Tot. Refills 3, Maintenance, 01/11/20 8:57:00 EDT, Route to Pharmacy Electronically, [facility]/pharmacy #207, 157.48, cm, 07/12/19 10:08:00 EDT, Height Start Date: 01/11/20 Status: OrderedFreestyle Lancet Device Freestyle Lancet Device, [...] TO CHECK BLOOD SUGAR THREETIMES PER DAY, [id number] Start Date: 05/11/19 Status: Orderedgabapentin 300 mg oral capsule 300 mg, 1, capsule, By Mouth, Daily, # 30 capsule, Refills 5, Tot. Refills 5, Soft Stop, 01/11/20 8:59:00 EDT, [facility] to [facility]ically, [id number] 157.48, cm, 07/12/19 10:08:00 EDT, Height Start Date: 01/11/20 Status: Orderedibuprofen 600 mg oral tablet 600 mg, 1, tablet, By Mouth, 3 times a day, PRN, with food or milk Label in irish, # 90 tablet, Refills 3, Tot. Refills 3, Maintenance, as needed for pain, 03/24/19 12:01:44 EDT, Route to Pharmacy Electronically, [id number]... Start Date: 03/24/19 Status: Orderedlevothyroxine 0.088 mg oral tablet 1 tablet = 88 mcg, By Mouth, Daily, # 90 tablet, 3 Refills, Maintenance, 07/12/19 11:19:40 EDT, Tablet, instead of capsules Start Date: 07/12/19 Status: OrderedmetFORMIN 750 mg oral tablet, extended release 1 tablet = 750 mg, By Mouth, Daily, # 30 tablet, 11 Refills, Maintenance, 01/11/20 8:57:00 EDT, ER Tablet, [facility]/pharmacy #2070, 157.48, cm, 07/12/19 10:08:00 EDT, Height Start Date: 01/11/20 Status: OrderedMiraLax oral powder for reconstitution = 17 Gm, By Mouth, Daily, dissolve in water before taking, # 527 Gm, 1 Refills, Maintenance, 01/11/20 8:59:00 EDT, REC Powder, [facility]/pharmacy #2070, 17 Gm By Mouth Daily,Instr:dissolve in water before taking, 157.48, cm, 07/12/19 10:08:00 EDT, Height Start Date: 01/11/20 Status: Orderedomeprazole 20 mg oral enteric coated capsule 1 capsule = 20 mg, By Mouth, Daily, # 90 capsule, 1 Refills, Maintenance, 01/11/20 9:00:00 EDT, EC Capsule, [facility]/pharmacy #2070, 157.48, cm, 07/12/19 10:08:00 EDT, Height Start Date: 01/11/20 Status: Orderedsimvastatin 20 mg oral tablet 20 mg, 1, tablet, By Mouth, Daily at bedtime, # 30 tablet, Refills 11, Tot. Refills 11, Maintenance,01/11/20 8:57:00 EDT, Route to Pharmacy Electronically, [facility]/pharmacy #[id number], 157.48, cm, 07/12/19 10:08:00 EDT, Height Start Date: 01/11/20 Status: OrderedsitaGLIPtin 100 mg oral tablet 1 tablet = 100 mg, By Mouth, Daily, # 30 tablet, 11 Refills, Maintenance, 01/11/20 8:57:00 EDT, Tablet, [facility]/pharmacy #2070, 157.48, cm, 07/12/19 10:08:00 EDT, Height [...] Snoring symptom(Confirmed)7 2011 Active 1per -2009 pulm iezkv4B/p Right ear surg 12/20103h/o hearing loss, rt side4 chronic, Rt, seen by ENT5s/p forcepts [id number] on 2010 [id number] to severe on 2011 sleep study Social History Social History Type Response Smoking Status Light tobacco smoker entered on: 11/23/13 Sex
--- OUTSIDE RECORDS SUMMARY | 2022-06-29 00:01 | XMS_ITS | Continuity of Care Document ---
:1960 Author Organization [facility] Address [address] [place] [address]- Care Team Providers Name Role Phone Cam BAÑUELOS, Aarti Arndt Primary Care Physician [facility] Date[facility]s): 02/18/21 - 02/19/[address] [address]- Encounter Diagnosis Lower extremity pain (Final) - 02/19/21 Discharge Disposition: A-D/C Home Attending Physician: Gordon Sharp MD Admitting Physician: Gordon Sharp MD Referring Physician: Not on Staff, Referring MD Allergies, Adverse Reactions, Alerts Substance Reaction [...] (Td)7 12/19/09 Given 1Result Comment: [06/08/2013] Flulaval [id number]. VIS in Ethiopian [id number] Note: VIS [id number] Note: VIS GIVEN VIS DATE 04/14/1117ggaupvp3Ymqzo Note: VIS GIVEN 04/29/10 aseaaqm2Gfxrz Note: vis vjfhf6Tcacp Note: vis 04/287Admin Note: vis 03/25 Medications albuterol 0.083% inhalation solution 3 mL = 2.5 mg, Inhalation, 2 times a day, PRN Wheezing/Shortness of Breath, # 180 each, 3 Refills, Maintenance, 01/11/20 8:57:00 EDT, Inhalation Solution, [facility]/pharmacy #[id number], 157.48, cm, 07/12/19 10:08:00 EDT, Height Start Date: 01/11/20 Stop Date: 01/05/21 Status: OrderedArtificial Tears preserved solution 1 drops, Eyes, Both, 2 times a day, PRN for dry eyes, # 30 mL, 1 Refills, Maintenance, 10/02/20 13:31:00 EST, Solution, [facility]/pharmacy #[id number], Partial fill upon patient request if the prescription is for a schedule II opioid drug., 1 drops Eyes, Both 2 t... Start Date: 10/02/20 Status: Orderedcapsaicin 0.025% topical cream 1 application, Topically, 2 times a day, avoid contact with face and eyes, # 45 Gm, 5 Refills, Maintenance, 01/11/20 8:57:00 EDT, Cream, [facility]/pharmacy #[id number], instructions in Ethiopian, 1 application Topically 2 times a day,Instr:avoid contact with face a... Start Date: 01/11/20 Status: OrderedClaritin 10 mg oral tablet 10 mg, 1, tablet, By Mouth, Daily, Label in Ethiopian, # 90 tablet, Refills 3, Tot. Refills 3, Maintenance, 01/11/20 8:58:00 EDT, Route to Pharmacy Electronically, [facility]/pharmacy #[id number], 157.48, cm, 07/12/19 10:08:00 EDT, Height Start Date: 01/11/20 Stop Date: 01/05/21 Status: Ordereddocusate-senna 50 mg-187 mg oral tablet 2 tablet, By Mouth, Daily at bedtime, PRN Constipation, # 60 tablet, 11 Refills, Maintenance, 05/30/20 11:37:00 EDT, Tablet, [facility]/pharmacy #2071, 2 tablet By Mouth Daily at bedtime,PRN:Constipation, 157.48, cm, 05/30/20 11:02:00 EDT, Height Start Date: 05/30/20 Status: OrderedFLUoxetine 20 mg oral capsule 20 mg, 1, capsule, By Mouth, Daily, # 90 capsule, Refills 3, Tot. Refills 3, Maintenance, 01/11/20 8:57:00 EDT, Route to Pharmacy Electronically, [facility]/pharmacy #[id number], 157.48, cm, 07/12/19 10:08:00 EDT, Height [...] 2 Refills, Maintenance, 05/02/20 9:12:00 EDT, Tablet, [facility]/pharmacy #[id number], note increased dose, 157.48, cm, 07/12/19 10:08:00 EDT, Height Start Date: 05/02/20 Status: Orderedibuprofen 600 mg oral tablet 600 mg, 1, tablet, By Mouth, 2 times a day, PRN, for 30 days, # 30 tablet, Refills 0, Tot. Refills 0, Acute 02/21/21 10:10:00 EDT, Pain , Mild, 01/22/21 10:10:00 EDT, Do Not Route, Partial fill upon patient request if the prescription is for a schedul... Start Date: 01/22/21 Stop Date: 02/21/21 Status: OrderedLantus Solostar Pen 100 units/mL subcutaneous solution = 10 units, Subcutaneous Injection, Daily, # 10 mL, 11 Refills, Maintenance, 09/09/20 17:43:00 EST, Solution, [facility]/pharmacy #[id number], Ethiopian label please, 157.48, cm, 08/09/20 13:26:00 EST, Height, 57.73,kg, 07/19/20 15:56:00 EDT, Dry Weight Start Date: 09/09/20 Status: Orderedlevothyroxine 75 mcg (0.075 mg) oral tablet 1 tablet = 75 mcg, By Mouth, Daily, # 90 tablet, 3 Refills, Maintenance, 10/02/20 13:30:00 EST, Tablet, [facility]/pharmacy #[id number], Dose changes from 88mcg to 75mcg 10/02/20, 157.48, cm, 08/09/20 13:26:00 EST, Height, 57.73, kg, 07/19/20 15:56:00 EDT, Dry Weight Start Date: 10/02/20 Status: Orderedlidocaine 5% topical film 1 patch, Topically, Daily, PRN Pain , Mild, remove after 12 hours, # 30 patch, 5 Refills, Maintenance, 05/02/20 9:17:00 EDT, Film, [facility]/pharmacy #[id number], 1 patch Topically Daily,PRN:Pain , Mild,Instr:remove after 12 hours, 157.48, cm, 07/12/19 10:08:00 E... Start Date: 05/02/20 Status: Orderedlisinopril 5 mg oral tablet 5 mg, 1, tablet, By Mouth, Daily, to protect kidneys, # 90 tablet, Refills 3, Tot. Refills 3, Maintenance, 05/02/20 9:22:00 EDT, [facility] 157.48, cm, 07/12/19 10:08:00 EDT, Height Start Date: 05/02/20 Status: OrderedmetFORMIN 500 mg oral tablet 1 tablet = 500 mg, By Mouth, 2 times a day, # 60 tablet, 5 Refills, Maintenance, 09/18/20 14:17:00 EST, Tablet, [facility]/pharmacy #207, dose change 08/09/20, 157.48, cm, 08/09/20 13:26:00 EST, Height, 57.73, kg, 07/19/20 15:56:00 EDT, Dry Weight Start Date: 09/18/20 Status: OrderedMiraLax oral powder for reconstitution = 17 Gm, By Mouth, Daily, dissolve in water before taking, # 527 Gm, 1 Refills, Maintenance, 01/11/20 8:59:00 EDT, REC Powder, [facility]/pharmacy #207, 17 Gm By Mouth Daily,Instr:dissolve in water before taking, 157.48, cm, 07/12/19 10:08:00 EDT, Height Start Date: 01/11/20 Status: Orderedomeprazole 20 mg oral enteric coated capsule 1 capsule = 20 mg, By Mouth, Daily, # 90 capsule, 1 Refills, Maintenance, 01/08/21 14:58:00 EDT, EC Capsule, [facility]/pharmacy #207, 157.48, cm, 08/09/20 13:26:00 EST, Height, 57.73, kg, 07/19/20 15:56:00 EDT, Dry Weight Start Date: 01/08/21 Status: OrderedPen Castine, 30 G x 8 mm BD Ultra [...] 0 Refills, Maintenance, 02/19/21 5:10:00 EDT, Tablet, [facility]/pharmacy #[id number], Partial fill upon patient request if the prescription is for a schedule II opioid drug., 157.48, cm, 08/09/20 13:26:00 EST, Heigh... Start Date: 02/19/21 Stop Date: 02/22/21 Status: Orderedsimvastatin 20 mg oral tablet 20 mg, 1, tablet, By Mouth, Daily at bedtime, # 30 tablet, Refills 11, Tot. Refills 11, Maintenance,01/11/20 8:57:00 EDT, Route to Pharmacy Electronically, [facility]/pharmacy #[id number], 157.48, cm, 07/12/19 10:08:00 EDT, Height Start Date: 01/11/20 Status: OrderedsitaGLIPtin 100 mg oral tablet 1 tablet = 100 mg, By Mouth, Daily, # 30 tablet, 11 Refills, Maintenance, 01/11/20 8:57:00 EDT, Tablet, [facility]/pharmacy #2071, 157.48, cm, 07/12/19 10:08:00 EDT, Height Start Date: 01/11/20 Status: OrderedTrulicity Pen 0.75 mg/0.5 mL subcutaneous solution 0.5 mL = 0.75 mg, Subcutaneous Injection, Every week, # 2.5 mL, 5 Refills, Maintenance, 08/09/20 13:59:00 EST, Solution, [facility]/pharmacy #[id number], Partial fill upon patient request, 157.48, [...] Active Snoring symptom(Confirmed)7 2011 Active 1per pulm aosay5Q/p Right ear surg 12/20103h/o hearing loss, rt side4 chronic, Rt, seen by ENT5s/p forcepts nirtjmsn5bszpgifp on 2010 [id number] to severe on 2011 sleep study Results Radiology Reports Exam Date Time Procedure Performing Provider Status 02/19/21 1:22 AM Knee 3 Views Left Rafy Flannery; Auth (Verjusto d) Notes:(Knee 3 Views Left) Reason For Exam: TraumaRESULT: Knee 3 Views Left Knee 3 Views Left Hx of Present Illness: 2.5 weeks of left leg pain and swelling. Nov had left laminectomy. MRI on 5 13 with no acute findings, US LLE on 5 25 with no acute findings. Pt also c o scattered lumps ; Reason: Trauma; Clinical Question(s): Other:; ? effusion; Special Instructions: Patella ([place]ily View) COMPARISON: None. FINDINGS: No evidence of fracture or dislocation. No significant degenerative change. No osseous erosion. IMPRESSION: Normal exam WSN: [id number] Ordering Physician: Josafat Nguyễn Dictated By: Loco Garcia MD Dictated Date/Time: 02/19/21 7:51 am Reviewed By: Loco Garcia MD Signed By: Loco Garcia MD Signed Date/Time: 02/19/21 7:51 am Transcribed By: MERI Transcribed Date/Time: 02/19/21 7:49 am Exam Date Time Procedure Performing Provider Status 02/19/21 1:22 AM Ankle Min 3 Views Left Rafy Flannery; Auth (Ve rified) Notes:(Ankle Min 3 Views Left) Reason For Exam: TraumaRESULT: Ankle Min 3 Views Left Ankle Min 3 Views Left Hx of Present Illness: 2.5 weeks of left leg pain and swelling. Nov had left laminectomy. MRI on 5 13 with no acute findings, US LLE on 5 25 with no acute findings. Pt also c o scattered lumps ; Reason: Trauma; Clinical Question(s): Other:; ? effusion. COMPARISON: None. FINDINGS: Posterior calcaneal spur No evidence of fracture or dislocation. No osseous erosion IMPRESSION: No evidence of fracture or dislocation. No radiographic evidence for osteomyelitis WSN: [id number] Ordering Physician: Josafat Nguyễn Dictated By: Loco Garcia MD Dictated Date/Time: 02/19/21 7:49 am Reviewed By: Loco Garcia MD Signed By: Loco Garcia MD Signed Date/Time: 02/19/21 7:49 am Transcribed By: MERI Transcribed Date/Time: 02/19/21 7:48 am Vital Signs Most recent to oldest [Reference 1 2 3 Range]: Oxygen Saturation [94-100 %] 99 % 99 % 100 % (02/19/21 7:00 AM) (02/19/21 2:03 AM) (02/18/21 11:55 PM) Pulse Rate [55-90 bpm] 84 bpm 79 bpm 75 bpm (02/19/21 7:00 AM) (02/19/21 2:03 AM) (02/18/21 11:55 PM) Blood Pressure [90-138/55-84 mm 144/74 mm Hg 159/70 mm Hg 134/71 mm Hg Hg] *H* *H* (02/18/21 11:55 PM ) (02/19/21 7:00 AM) (02/19/21 2:03 AM) Respiratory Rate [16-30 br/min] 16 br/min 16 br/min 18 br/min (02/19/21 7:00 AM) (02/19/21 2:03 AM) (02/18/21 11:55 PM) Temperature [96.8-100.4 DegF] 98.8 DegF 98.7 DegF 98 .9 DegF (02/19/21 2:03 AM) (02/18/21 11:55 PM) (02/18/21 10:27 PM) Mode of Delivery (Oxygen) Room air Room air Room a ir (02/19/21 7:00 AM) (02/19/21 2:03 AM) (02/18/21 11:55 PM) Blood pressure sites Arm, left Arm, left Arm, left (02/19/21 7:00 AM) (02/19/21 2:03 AM) (02/18/21 10:27 PM) Temperature Route Oral Oral Oral (02/19/21 2:03 AM) (02/18/21 11:55 PM) (02/18/21 10:27 PM) Social History Social History Type Response Smoking Status Light tobacco smoker entered on: 11/23/13 Sex
--- OUTSIDE RECORDS SUMMARY | 2022-06-29 00:01 | XMS_ITS | Continuity of Care Document ---
:1960 Author Organization [facility] Address [address] [place] [address]- Care Team Providers Name Role Phone Cam ACUTE DIALYSIS NURSE, Aarti Arndt Primary Care Physician [facility]counter [facility] Date(s): 01/08/21 - 02/07/21 [facility] [address] [place] [id number]- Allergies, Adverse Reactions, Alerts Substance Reaction Severity [...] (Td)7 12/19/09 Given 1Result Comment: [06/08/2013] Flulaval [id number]. VIS in South Korean [id number] Note: VIS [id number] Note: VIS GIVEN VIS DATE 04/14/[id number] Note: VIS GIVEN 04/29/10 [id number] Note: vis [id number] Note: vis 04/287Admin Note: vis 03/25 Medications albuterol 0.083% inhalation solution 3 mL = 2.5 mg, Inhalation, 2 times a day, PRN Wheezing/Shortness of Breath, # 180 each, 3 Refills, Maintenance, 01/11/20 8:57:00 EDT, Inhalation Solution, [facility]/pharmacy #207, 157.48, cm, 07/12/19 10:08:00 EDT, Height Start Date: 01/11/20 Stop Date: 01/05/21 Status: OrderedArtificial Tears preserved solution 1 drops, Eyes, Both, 2 times a day, PRN for dry eyes, # 30 mL, 1 Refills, Maintenance, 10/02/20 13:31:00 EST, Solution, [facility]/pharmacy #207, Partial fill upon patient request if the prescription is for a schedule II opioid drug., 1 drops Eyes, Both 2 t... Start Date: 10/02/20 Status: Orderedcapsaicin 0.025% topical cream 1 application, Topically, 2 times a day, avoid contact with face and eyes, # 45 Gm, 5 Refills, Maintenance, 01/11/20 8:57:00 EDT, Cream, [facility]/pharmacy #207, instructions in [place], 1 application Topically 2 times a day,Instr:avoid contact with face a... Start Date: 01/11/20 Status: OrderedClaritin 10 mg oral tablet 10 mg, 1, tablet, By Mouth, Daily, Label in [place], # 90 tablet, Refills 3, Tot. Refills 3, Maintenance, 01/11/20 8:58:00 EDT, Route to Pharmacy Electronically, [facility]/pharmacy #207, 157.48, cm, 07/12/19 10:08:00 EDT, Height Start Date: 01/11/20 Stop Date: 01/05/21 Status: Ordereddocusate-senna 50 mg-187 mg oral tablet 2 tablet, By Mouth, Daily at bedtime, PRN Constipation, # 60 tablet, 11 Refills, Maintenance, 05/30/20 11:37:00 EDT, Tablet, [facility]/pharmacy #207, 2 tablet By Mouth Daily at bedtime,PRN:Constipation, 157.48, cm, 05/30/20 11:02:00 EDT, Height Start Date: 05/30/20 Status: OrderedFLUoxetine 20 mg oral capsule 20 mg, 1, capsule, By Mouth, Daily, # 90 capsule, Refills 3, Tot. Refills 3, Maintenance, 01/11/20 8:57:00 EDT, Route to Pharmacy Electronically, [facility]/pharmacy #[id number], 157.48, cm, 07/12/19 10:08:00 EDT, Height [...] 2 Refills, Maintenance, 05/02/20 9:12:00 EDT, Tablet, [facility]/pharmacy #[id number], note increased dose, 157.48, cm, 07/12/19 [...] 11 Refills, Maintenance, 09/09/20 17:43:00 EST, Solution, [facility]/pharmacy #[id number], [place] label please, 157.48, cm, 08/09/20 13:26:00 EST, Height, 57.73,kg, 07/19/20 15:56:00 EDT, Dry Weight Start Date: 09/09/20 Status: Orderedlevothyroxine 75 mcg (0.075 mg) oral tablet 1 tablet = 75 mcg, By Mouth, Daily, # 90 tablet, 3 Refills, Maintenance, 10/02/20 13:30:00 EST, Tablet, [facility]/pharmacy #[id number], Dose changes from 88mcg to 75mcg 10/02/20, 157.48, cm, 08/09/20 13:26:00 EST, Height, 57.73, kg, 07/19/20 15:56:00 EDT, Dry Weight Start Date: 10/02/20 Status: Orderedlidocaine 5% topical film 1 patch, Topically, Daily, PRN Pain , Mild, remove after 12 hours, # 30 patch, 5 Refills, Maintenance, 05/02/20 9:17:00 EDT, Film, [facility]/pharmacy #[id number], 1 patch Topically Daily,PRN:Pain , Mild,Instr:remove after 12 hours, 157.48, cm, 07/12/19 10:08:00 E... Start Date: 05/02/20 Status: Orderedlisinopril 5 mg oral tablet 5 mg, 1, tablet, By Mouth, Daily, to protect kidneys, # 90 tablet, Refills 3, Tot. Refills 3, Maintenance, 05/02/20 9:22:00 EDT, Route to Pharmacy Electronically, [facility]/pharmacy #207, 157.48, cm, 07/12/19 10:08:00 EDT, Height Start Date: 05/02/20 Status: OrderedmetFORMIN 500 mg oral tablet 1 tablet = 500 mg, By Mouth, 2 times a day, # 60 tablet, 5 Refills, Maintenance, 09/18/20 14:17:00 EST, Tablet, [facility]/pharmacy #207, dose change 08/09/20, 157.48, cm, 08/09/20 13:26:00 EST, Height, 57.73, kg, 07/19/20 15:56:00 EDT, Dry Weight Start Date: 09/18/20 Status: OrderedMiraLax oral powder for reconstitution = 17 Gm, By Mouth, Daily, dissolve in water before taking, # 527 Gm, 1 Refills, Maintenance, 01/11/20 8:59:00 EDT, REC Powder, [facility]/pharmacy #[id number], 17 Gm By Mouth Daily,Instr:dissolve in water before taking, 157.48, cm, 07/12/19 10:08:00 EDT, Height Start Date: 01/11/20 Status: Orderedomeprazole 20 mg oral enteric coated capsule 1 capsule = 20 mg, By Mouth, Daily, # 90 capsule, 1 Refills, Maintenance, 01/08/21 14:58:00 EDT, EC Capsule, [facility]/pharmacy #207, 157.48, cm, 08/09/20 13:26:00 EST, Height, 57.73, kg, 07/19/20 15:56:00 EDT, Dry Weight Start Date: 01/08/21 Status: OrderedPen [place], 30 G x 8 mm BD Ultra [...] Maintenance,01/11/20 8:57:00 EDT, [id number] 157.[facility], cm, 07/12/19 10:08:00 EDT, Height Start Date: 01/11/20 Status: OrderedsitaGLIPtin 100 mg oral tablet 1 tablet = 100 mg, By Mouth, Daily, # 30 tablet, 11 Refills, Maintenance, 01/11/20 8:57:00 EDT, Tablet, [facility]/pharmacy #[id number], 157.48, cm, 07/12/19 10:08:00 EDT, Height Start Date: 01/11/20 Status: OrderedTrulicity Pen 0.75 mg/0.5 mL subcutaneous solution 0.5 mL = 0.75 mg, Subcutaneous Injection, Every week, # 2.5 mL, 5 Refills, Maintenance, 08/09/20 13:59:00 EST, Solution, [facility]/pharmacy #[id number], Partial fill upon patient request, 157.48, cm, 08/09/20 13:26:00 EST, Height, 57.73, kg, 07/19/20 15:56:00 EDT... Start Date: 08/09/20 Status: OrderedVentolin HFA 108 mcg/inh inhalation aerosol with adapter 1 puffs, Inhalation, 4 times a day, PRN for wheezing, PLEASE DISPENSE VENTOLIN, NOT PROAIR, CLIENT DOES NOT TOLERATE PRO AIR, # 18 Gm, 11 Refills, Maintenance, 01/11/20 8:57:00 EDT, Aerosol, [facility]/pharmacy #[id number], 157.48, cm, 07/12/19 10:08:00 EDT, Height [...] Active Obstructive sleep apnea(Confirmed) 11/02/11 Active Snoring symptom(Confirmed)2011 Active 1per 8-2009 pulm iyloy7G/p Right ear surg 12/20103h/o hearing loss, rt side4 chronic, Rt, seen by ENT5s/p forcepts [id number] on 2010 [id number] to severe on 2011 sleep study Social History Social History Type Response Smoking Status Light tobacco smoker entered on: 11/23/13 Sex
--- OUTSIDE RECORDS SUMMARY | 2022-06-29 00:01 | XMS_ITS | Continuity of Care Document ---
:1960 Author Organization [facility] Address [address] [place] [address]- Care Team Providers Name Role Phone Cam BAÑUELOS, Aarti Arndt Primary Care Physician Encounter [facility] Date(s): 07/24/20 - 07/26/[address] [address]- Discharge Disposition: A-D/C Home Attending Physician: Tobi Lemos MD Admitting Physician: Tobi Lemos MD Referring Physician: Tobi Lemos MD Allergies, Adverse Reactions, Alerts Substance Reaction Severity Status doxycycline unknown Active aspirin GI Upset Active penicillins hives Persistent Moderate Active sulfonylureas rash Active thiazolidinediones eczema Active traMADOL1 [D]Nausea Active Stomach ache [D]Headache 1see visit note Immunizations Given and Recorded Vaccine Date Status Refusal Reason influenza virus vaccine, inactivated 06/27/20 Given influenza [...] (Td)7 12/19/09 Given 1Result Comment: [06/08/2013] Flulaval [id number]. VIS in French [id number] Note: VIS [id number] Note: VIS GIVEN VIS DATE 04/14/[id number] Note: VIS GIVEN 04/29/10 [id number] Note: vis [id number] Note: vis 04/287Admin Note: vis 03/25 Medications albuterol 0.083% inhalation solution 3 mL = 2.5 mg, Inhalation, 2 times a day, PRN Wheezing/Shortness of Breath, # 180 each, 3 Refills, Maintenance, 01/11/20 8:57:00 EDT, Inhalation Solution, [facility]/pharmacy #[id number], 157.48, cm, 07/12/19 10:08:00 EDT, Height Start Date: 01/11/20 Stop Date: 01/05/21 Status: Orderedbaclofen 10 mg oral tablet 10 mg, 1, tablet, By Mouth, 2 times a day, for back pain, # 14 tablet, Refills 1, Tot. Refills 1, Maintenance, 03/29/20 16:40:00 EDT, [facility], cm, 07/12/19 10:08:00 EDT, Height Start Date: 03/29/20 Stop Date: 04/12/20 Status: Orderedcapsaicin 0.025% topical cream 1 application, Topically, 2 times a day, avoid contact with face and eyes, # 45 Gm, 5 Refills, Maintenance, 01/11/20 8:57:00 EDT, Cream, [facility]/pharmacy #207, instructions in French, 1 application Topically 2 times a day,Instr:avoid contact with face a... Start Date: 01/11/20 Status: OrderedClaritin 10 mg oral tablet 10 mg, 1, tablet, By Mouth, Daily, Label in French, # 90 tablet, Refills 3, Tot. Refills 3, Maintenance, 01/11/20 8:58:00 EDT, Route to Pharmacy Electronically, [facility]/pharmacy #[id number], 157.48, cm, 07/12/19 10:08:00 EDT, Height Start Date: 01/11/20 Stop Date: 01/05/21 Status: OrderedDilaudid 2 mg oral tablet 1 tablet = 2 mg, By Mouth, Every 4 hours, PRN Pain , Severe, take half a tablet every 6 hours prn pain., # 28 tablet, 0 Refills, Acute 08/02/20 15:34:00 EST, 07/24/20 15:32:00 EST, Tablet, [facility], Partial fill upon patient request, 1... Start Date: 07/24/20 Stop Date: 08/02/20 Status: Ordereddocusate-senna 50 mg-187 mg oral tablet 2 tablet, By Mouth, Daily at bedtime, PRN Constipation, # 60 tablet, 11 Refills, Maintenance, 05/30/20 11:37:00 EDT, Tablet, [facility]/pharmacy #[id number], 2 tablet By Mouth Daily at bedtime,PRN:Constipation, 157.48, cm, 05/30/20 11:02:00 EDT, Height Start Date: 05/30/20 Status: OrderedFLUoxetine 20 mg oral capsule 20 mg, 1, capsule, By Mouth, Daily, # 90 capsule, Refills 3, Tot. Refills 3, Maintenance, 01/11/20 8:57:00 EDT, Route to Pharmacy Electronically, [facility]/pharmacy #207, 157.48, cm, 07/12/19 10:08:00 EDT, Height Start Date: 01/11/20 Status: OrderedFreestyle Lite Monitor See Instructions, # 1 each, Maintenance, Dx: dm2, 1-2 times daily checks, 07/12/19 11:21:40 EDT, Compound Start Date: 07/12/19 Status: Orderedgabapentin 600 mg oral tablet 1 tablet = 600 mg, By Mouth, 3 times a day, # 90 tablet, 2 Refills, Maintenance, 05/02/20 9:12:00 EDT, Tablet, [facility]/pharmacy #207, note increased dose, 157.48, cm, 07/12/19 10:08:00 EDT, Height Start Date: 05/02/20 Status: Orderedibuprofen 600 mg oral tablet 600 mg, 1, tablet, By Mouth, 3 times a day, PRN, for 30 days, # 90 tablet, Refills 1, Tot. Refills 1, Acute 08/26/20 8:27:00 EST, Pain , Mild, 06/27/20 8:27:00 EDT, Route to Pharmacy Electronically, [facility]/pharmacy #207, Enteric coated if possible pleas... Start Date: 06/27/20 Stop Date: 08/26/20 Status: Orderedlevothyroxine 0.088 mg oral tablet 1 tablet = 88 mcg, By Mouth, Daily, # 90 tablet, 3 Refills, Maintenance, 07/12/19 11:19:40 EDT, Tablet, instead of capsules Start Date: 07/12/19 Status: Orderedlidocaine 5% topical film 1 patch, Topically, Daily, PRN Pain , Mild, remove after 12 hours, # 30 patch, 5 Refills, Maintenance, 05/02/20 9:17:00 EDT, Film, [facility]/pharmacy #207, 1 patch Topically Daily,PRN:Pain , Mild,Instr:remove after 12 hours, 157.48, cm, 07/12/19 10:08:00 E... Start Date: 05/02/20 Status: Orderedlisinopril 5 mg oral tablet 5 mg, 1, tablet, By Mouth, Daily, to protect kidneys, # 90 tablet, Refills 3, Tot. Refills 3, Maintenance, 05/02/20 9:22:00 EDT, Route to Pharmacy Electronically, [facility]/pharmacy #207, 157.48, cm, 07/12/19 10:08:00 EDT, Height Start Date: 05/02/20 Status: OrderedmetFORMIN 1000 mg oral tablet 1 tablet = 1,000 mg, By Mouth, 2 times a day, # 60 tablet, 5 Refills, Maintenance, 07/11/20 13:36:00EDT, [facility]/pharmacy #207, instead of 750mg ER, 157.48, cm, 06/27/20 8:02:00 EDT, Height Start Date: 07/11/20 Status: OrderedMiraLax oral powder for reconstitution = 17 Gm, By Mouth, Daily, dissolve in water before taking, # 527 Gm, 1 Refills, Maintenance, 01/11/20 8:59:00 EDT, REC Powder, [facility]pharmacy #207, 17 Gm By Mouth Daily,Instr:dissolve in water before taking, 157.48, cm, 07/12/19 10:08:00 EDT, Height Start Date: 01/11/20 Status: Orderedomeprazole 20 mg oral enteric coated capsule 1 capsule = 20 mg, By Mouth, Daily, # 90 capsule, 1 Refills, Maintenance, 04/08/20 13:48:00 EDT, EC Capsule, [facility]/pharmacy #1, 157.48, cm, 07/12/19 10:08:00 EDT, Height Start Date: 04/08/20 Status: OrderedoxyCODONE 5 mg oral tablet 10 mg, 2, tablet, By Mouth, Every 6 hours, PRN, # 28 tablet, Refills 0, Tot. Refills 0, Acute 08/02/20 11:42:00 EST, Pain , Severe, 07/24/20 11:41:00 EST, Route to Pharmacy Electronically, [facility], Partial fill upon patient request, 1... Start Date: 07/24/20 Stop Date: 08/02/20 Status: Orderedsimvastatin 20 mg oral tablet 20 mg, 1, tablet, By Mouth, Daily at bedtime, # 30 tablet, Refills 11, Tot. Refills 11, Maintenance,01/11/20 8:57:00 EDT, Route to Pharmacy Electronically, [facility]/pharmacy #[id number], 157.48, cm, 07/12/19 10:08:00 EDT, Height Start Date: 01/11/20 Status: OrderedsitaGLIPtin 100 mg oral tablet 1 tablet = 100 mg, By Mouth, Daily, # 30 tablet, 11 Refills, Maintenance, 01/11/20 8:57:00 EDT, Tablet, [facility]/pharmacy #1, 157.48, cm, 07/12/19 10:08:00 EDT, Height Start Date: 01/11/20 Status: OrderedVentolin HFA 108 mcg/inh inhalation aerosol with adapter 1 puffs, Inhalation, 4 times a day, PRN for wheezing, PLEASE DISPENSE VENTOLIN, NOT PROAIR, CLIENT DOES NOT TOLERATE PRO AIR, # 18 Gm, 11 Refills, Maintenance, 01/11/20 8:57:00 EDT, Aerosol, [facility]/pharmacy #1, 157.48, cm, 07/12/19 10:08:00 EDT, Height Start [...] Active Snoring symptom(Confirmed)7 2011 Active 1per pulm pydvb2L/p Right ear surg 12/20103h/o hearing loss, rt side4 chronic, Rt, seen by ENT5s/p forcepts [id number] on 2010 [id number] to severe on 2011 sleep study Procedures Procedure Date Related Diagnosis Body Site Status Laminotomy (hemilaminectomy), with Completed decompression of nerve root(s), including partial facetectomy, foraminotomy and/or excision of herniated intervertebral disc; 1 interspace, lumbar Results Radiology Reports Exam Date Time Procedure Performing Provider Status 07/24/20 2:00 PM Spine Single View Colette Burden; Denis (Verif ied) Notes:(Spine Single View) Reason For Exam: Lumbar Radiculapathy Microdiscectomy RESULT: Spine Single View [facility] Spine Single View INDICATION: Lumbar radiculopathy and microdiscectomy COMPARISON: 03/19/2010 lumbar radiograph, MRI lumbar spine 04/16/2020 FINDINGS: Portable intraoperative single image was obtained demonstrating localization at the level of the L5 vertebral body. There is mild to moderate to intervertebral disc space narrowing at L4-L5 and to a lesser extent at L5-S1. IMPRESSION: As above. I have personally reviewed the images and I agree with this report. WSN: [id number] Ordering Physician: Tobi Lemos Dictated By: Sonam Marte MD Dictated Date/Time: 07/24/20 3:36 pm Reviewed By: Robin Huerta MD Signed By: Robin Huerta MD Signed Date/Time: 07/24/20 3:41 pm Transcribed By: MERI Transcribed Date/Time: 07/24/20 3:04 pm Vital Signs Most recent to oldest 1 2 3 [Reference Range]: Height 157.48 cm 157.48 cm 157.48 cm (07/26/20 8:39 AM) (07/25/20 3:52 PM) (07/25/20 11: 18 AM) Weight 51.7 kg 56.6 kg (07/24/20 4:41 PM) (07/24/20 12:04 PM) Oxygen Saturation [94-100 %] 97 % 99 % 97 % (07/26/20 8:39 AM) (07/26/20 4:04 AM) (07/25/20 11: 58 PM) Pulse Rate [55-90 bpm] 116 bpm 101 bpm 98 bpm *H* *H* *H* (07/26/20 8:39 AM) (07/26/20 4:04 AM) (07/25/20 11: 58 PM) Body Mass Index [18.5-24.99] 22.82 (07/24/20 12:04 PM) Blood Pressure [90-138/55-84 121/55 mm Hg 120/56 mm Hg 124 /65 mm Hg mm Hg] (07/26/20 9:50 AM) (07/26/20 8:39 AM) (07/26/20 4:0 4 AM) Respiratory Rate [16-30 18 br/min 18 br/min 18 br/mi n br/min] (07/26/20 1:10 PM) (07/26/20 12:06 PM) (07/26/20 11 :00 AM) Temperature [96.8-100.4 99.6 DegF 98.2 DegF 98.4 Deg F DegF] (07/26/20 8:39 AM) (07/26/20 4:04 AM) (07/25/20 11: 58 PM) Liters per Minute 0 L/min 4 L/min 4 L/min (07/26/20 8:39 AM) (07/24/20 3:15 PM) (07/24/20 3:0 0 PM) Mode of Delivery (Oxygen) Room air Room air Room a ir (07/26/20 8:39 AM) (07/26/20 4:04 AM) (07/25/20 11: 58 PM) Blood pressure sites Arm, right Arm, right Arm, right (07/26/20 8:39 AM) (07/26/20 4:04 AM) (07/25/20 11: 58 PM) Temperature Route Temporal Temporal Temporal (07/26/20 8:39 AM) (07/26/20 4:04 AM) (07/25/20 11: 58 PM) Dry Weight 57.73 kg (07/19/20 3:56 PM) Weight Obtained Via Bed scale Standing scale (07/24/20 4:41 PM) (07/24/20 12:04 PM) Social History Social History Type Response Smoking Status Light tobacco smoker entered on: 11/23/13 Sex
--- OUTSIDE RECORDS SUMMARY | 2022-06-29 00:01 | XMS_ITS | Continuity of Care Document ---
:[address] [facility] Address [address] [place] [address]- Care Team Providers Name Role Phone Cam BAÑUEOLS, Aarti Arndt Primary Care Physician [facility] - 05/08/20 [facility] [address] [place] [id number] Allergies, Adverse Reactions, Alerts Substance Reaction Severity [...] (Td)7 12/19/09 Given 1Result Comment: [06/08/2013] Flulaval [id number]. VIS in Pakistani [id number] Note: VIS [id number] Note: VIS GIVEN VIS DATE 04/14/1115esboetg7Jrugh Note: VIS GIVEN 04/29/10 [id number] Note: vis [id number] Note: vis 04/287Admin Note: vis 03/25 Medications albuterol 0.083% inhalation solution 3 mL = 2.5 mg, Inhalation, 2 times a day, PRN Wheezing/Shortness of Breath, # 180 each, 3 Refills, Maintenance, 01/11/20 8:57:00 EDT, Inhalation Solution, [facility]/pharmacy #[id number], 157.48, cm, 07/12/19 10:08:00 EDT, Height Start Date: 01/11/20 Stop Date: 01/05/21 Status: Orderedbaclofen 10 mg oral tablet 10 mg, 1, tablet, By Mouth, 2 times a day, for back pain, # 14 tablet, Refills 1, Tot. Refills 1, Maintenance, 03/29/20 16:40:00 EDT, Route to Pharmacy Electronically, [facility]/pharmacy #[id number], 157.48, cm, 07/12/19 10:08:00 EDT, Height Start Date: 03/29/20 Stop Date: 04/12/20 Status: Orderedbetamethasone topical dipropionate 0.05% cream See Instructions, # 45 Gm, Refills 2 Tot. Refills 2, APLIQUE AL AREA AFECTADA DOS VECES AL PRINCE, [facility]/pharmacy #[id number] Start Date: 06/25/19 Status: Orderedcapsaicin 0.025% topical cream 1 application, Topically, 2 times a day, avoid contact with face and eyes, # 45 Gm, 5 Refills, Maintenance, 01/11/20 8:57:00 EDT, Cream, [facility]/pharmacy #[id number], instructions in Pakistani, 1 application Topically 2 times a day,Instr:avoid contact with face a... Start Date: 01/11/20 Status: OrderedClaritin 10 mg oral tablet 10 mg, 1, tablet, By Mouth, Daily, Label in Pakistani, # 90 tablet, Refills 3, Tot. Refills 3, Maintenance, 01/11/20 8:58:00 EDT, Route to Pharmacy Electronically, [facility]/pharmacy #[id number], 157.48, cm, 07/12/19 10:08:00 EDT, Height Start Date: 01/11/20 Stop Date: 01/05/21 Status: Orderedclotrimazole 1% topical cream 1 application, Topically, 2 times a day, for 14 days, for external use only, # 30 Gm, 0 Refills, Acute 05/16/20 9:16:00 EDT, 05/02/20 9:16:00 EDT, Cream, [facility]/pharmacy #[id number], 1 application Topically 2 times a day,x14 days,Instr:for external use only, 1... Start Date: 05/02/20 Stop Date: 05/16/20 Status: Ordereddocusate-senna 50 mg-187 mg oral tablet 2 tablet, By Mouth, Daily at bedtime, PRN Constipation, # 60 tablet, 11 Refills, Maintenance, 07/12/19 11:18:26 EDT, Tablet, 2 tablet By Mouth Daily at bedtime,PRN:Constipation Start Date: 07/12/19 Status: Orderedfluconazole 150 mg oral tablet 1 tablet = 150 mg, By Mouth, Once, # 1 tablet, 0 Refills, Soft Stop, 05/07/20 7:59:00 EDT, Tablet, [facility]/pharmacy #207, 157.48, cm, 07/12/19 10:08:00 EDT, Height Start Date: 05/07/20 Status: OrderedFLUoxetine 20 mg oral capsule 20 mg, 1, capsule, By Mouth, Daily, # 90 capsule, Refills 3, Tot. Refills 3, Maintenance, 01/11/20 8:57:00 EDT, Route to Pharmacy Electronically, [facility]/pharmacy #[id number], 157.48, cm, 07/12/19 10:08:00 EDT, Height Start Date: 01/11/20 Status: OrderedFreestyle Lite Monitor See Instructions, # 1 each, Maintenance, Dx: dm2, 1-2 times daily checks, 07/12/19 11:21:40 EDT, Compound Start Date: 07/12/19 Status: Orderedgabapentin 600 mg oral tablet 1 tablet = 600 mg, By Mouth, 3 times a day, # 90 tablet, 2 Refills, Maintenance, 05/02/20 9:12:00 EDT, Tablet, [facility]/pharmacy #207, note increased dose, 157.48, cm, 07/12/19 10:08:00 EDT, Height Start Date: 05/02/20 Status: Orderedlevothyroxine 0.088 mg oral tablet 1 tablet = 88 mcg, By Mouth, Daily, # 90 tablet, 3 Refills, Maintenance, 07/12/19 11:19:40 EDT, Tablet, instead of capsules Start Date: 07/12/19 Status: Orderedlidocaine 5% topical film 1 patch, Topically, Daily, PRN Pain , Mild, remove after 12 hours, # 30 patch, 5 Refills, Maintenance, 05/02/20 9:17:00 EDT, Film, [facility]/pharmacy #[id number], 1 patch Topically Daily,PRN:Pain , Mild,Instr:remove after 12 hours, 157.48, cm, 07/12/19 10:08:00 E... Start Date: 05/02/20 Status: Orderedlisinopril 5 mg oral tablet 5 mg, 1, tablet, By Mouth, Daily, to protect kidneys, # 90 tablet, Refills 3, Tot. Refills 3, Maintenance, 05/02/20 9:22:00 EDT, Route to Pharmacy Electronically, [facility]/pharmacy #207, 157.48, cm, 07/12/19 10:08:00 EDT, Height Start Date: 05/02/20 Status: OrderedmetFORMIN 750 mg oral tablet, extended release 1 tablet = 750 mg, By Mouth, Daily, # 30 tablet, 11 Refills, Maintenance, 01/11/20 8:57:00 EDT, ER Tablet, [facility]/pharmacy #207, 157.48, cm, 07/12/19 10:08:00 EDT, Height Start Date: 01/11/20 Status: OrderedMiraLax oral powder for reconstitution = 17 Gm, By Mouth, Daily, dissolve in water before taking, # 527 Gm, 1 Refills, Maintenance, 01/11/20 8:59:00 EDT, REC Powder, [facility]/pharmacy #207, 17 Gm By Mouth Daily,Instr:dissolve in water before taking, 157.48, cm, 07/12/19 10:08:00 EDT, Height Start Date: 01/11/20 Status: Orderednabumetone 750 mg oral tablet 1 tablet = 750 mg, By Mouth, 2 times a day, # 60 tablet, 0 Refills, Maintenance, 03/29/20 16:37:00 EDT, Tablet, [facility]/pharmacy #207, 157.48, cm, 07/12/19 10:08:00 EDT, Height Start Date: 03/29/20 Status: Orderedomeprazole 20 mg oral enteric coated capsule 1 capsule = 20 mg, By Mouth, Daily, # 90 capsule, 1 Refills, Maintenance, 04/08/20 13:48:00 EDT, EC Capsule, [facility]/pharmacy #[id number], 157.48, cm, 07/12/19 10:08:00 EDT, Height Start Date: 04/08/20 Status: Orderedsimvastatin 20 mg oral tablet 20 mg, 1, tablet, By Mouth, Daily at bedtime, # 30 tablet, Refills 11, Tot. Refills 11, Maintenance,01/11/20 8:57:00 EDT, Route to Pharmacy Electronically, [facility]/pharmacy #[id number], 157.48, cm, 07/12/19 10:08:00 EDT, Height Start Date: 01/11/20 Status: OrderedsitaGLIPtin 100 mg oral tablet 1 tablet = 100 mg, By Mouth, Daily, # 30 tablet, 11 Refills, Maintenance, 01/11/20 8:57:00 EDT, [facility], cm, 07/12/19 10:08:00 EDT, Height Start Date: 01/11/20 Status: OrderedVentolin HFA 108 mcg/inh inhalation aerosol with adapter 1 puffs, Inhalation, 4 times a day, PRN for wheezing, PLEASE DISPENSE VENTOLIN, NOT PROAIR, CLIENT DOES NOT TOLERATE PRO AIR, # 18 Gm, 11 Refills, Maintenance, 01/11/20 8:57:00 EDT, Aerosol, [facility]/pharmacy #[id number], 157.48, cm, 07/12/19 10:08:00 EDT, Height [...] apnea(Confirmed) 11/02/11 Active Snoring symptom(Confirmed)2011 Active 1per pulm [id number]/p Right ear surg 12/20103h/o hearing loss, rt side4 chronic, Rt, seen by ENT5s/p forcepts [id number] on 2010 [id number] to severe on 2011 sleep study Social History Social History Type Response Smoking Status Light tobacco smoker entered on: 11/23/13 Sex
--- OUTSIDE RECORDS SUMMARY | 2022-06-29 00:01 | XMS_ITS | Continuity of Care Document ---
:1960 Author Organization [facility] Address [address] [place] [address]- Care Team Providers Name Role Phone Cam TEXTILE STYLIST, Aarti Arndt Primary Care Physician [facility] 08[facility] - 08/31/20 [facility] [address] [place] [id number]- Allergies, Adverse Reactions, Alerts Substance Reaction Severity [...] (Td)7 12/19/09 Given 1Result Comment: [06/08/2013] Flulaval [id number]. VIS in Uruguayan [id number] Note: VIS [id number] Note: VIS GIVEN VIS DATE 04/14/1153whiifhz7Adndf Note: VIS GIVEN 04/29/10 [id number] Note: vis [id number] Note: vis 04/287Admin Note: vis 03/25 Medications albuterol 0.083% inhalation solution 3 mL = 2.5 mg, Inhalation, 2 times a day, PRN Wheezing/Shortness of Breath, # 180 each, 3 Refills, Maintenance, 01/11/20 8:57:00 EDT, Inhalation Solution, [facility]/pharmacy #[id number], 157.48, cm, 07/12/19 10:08:00 EDT, Height Start Date: 01/11/20 Stop Date: 01/05/21 Status: Orderedbaclofen 10 mg oral tablet 10 mg, 1, tablet, By Mouth, 2 times a day, for back pain, # 14 tablet, Refills 1, Tot. Refills 1, Maintenance, 03/29/20 16:40:00 EDT, Route to Pharmacy Electronically, [facility]/pharmacy #[id number], 157.48, cm, 07/12/19 10:08:00 EDT, Height Start Date: 03/29/20 Stop Date: 04/12/20 Status: Orderedcapsaicin 0.025% topical cream 1 application, Topically, 2 times a day, avoid contact with face and eyes, # 45 Gm, 5 Refills, Maintenance, 01/11/20 8:57:00 EDT, Cream, [facility]/pharmacy #[id number], instructions in Uruguayan, 1 application Topically 2 times a day,Instr:avoid contact with face a... Start Date: 01/11/20 Status: OrderedClaritin 10 mg oral tablet 10 mg, 1, tablet, By Mouth, Daily, Label in Uruguayan, # 90 tablet, Refills 3, Tot. Refills 3, Maintenance, 01/11/20 8:58:00 EDT, Route to Pharmacy Electronically, [facility]/pharmacy #[id number], 157.48, cm, 07/12/19 10:08:00 EDT, Height Start Date: 01/11/20 Stop Date: 01/05/21 Status: Ordereddocusate-senna 50 mg-187 mg oral tablet 2 tablet, By Mouth, Daily at bedtime, PRN Constipation, # 60 tablet, 11 Refills, Maintenance, 05/30/20 11:37:00 EDT, Tablet, [facility]/pharmacy #[id number], 2 tablet By Mouth Daily at bedtime,PRN:Constipation, 157.48, cm, 05/30/20 11:02:00 EDT, Height Start Date: 05/30/20 Status: OrderedFLUoxetine 20 mg oral capsule 20 mg, 1, capsule, By Mouth, Daily, # 90 capsule, Refills 3, Tot. Refills 3, Maintenance, 01/11/20 8:57:00 EDT, Route to Pharmacy Electronically, [facility]/pharmacy #207, 157.48, cm, 07/12/19 10:08:00 EDT, Height Start Date: 01/11/20 Status: OrderedFreestyle Lite Monitor See Instructions, # 1 each, Maintenance, Dx: dm2, 1-2 times daily checks, 07/12/19 11:21:40 EDT, Compound Start Date: 07/12/19 Status: Orderedgabapentin 600 mg oral tablet 1 tablet = 600 mg, By Mouth, 3 times a day, # 90 tablet, 2 Refills, Maintenance, 05/02/20 9:12:00 EDT, Tablet, [facility]/pharmacy #207, note increased dose, 157.48, cm, 07/12/19 10:08:00 EDT, Height Start Date: 05/02/20 Status: Orderedlevothyroxine 0.088 mg oral tablet 1 tablet = 88 mcg, By Mouth, Daily, # 90 tablet, 3 Refills, Maintenance, 08/09/20 13:59:00 EST, Tablet, [facility]/pharmacy #[id number], instead of capsules, 157.48, cm, 08/09/20 13:26:00 EST, Height, 57.73, kg, 07/19/20 15:56:00 EDT, Dry Weight Start Date: 08/09/20 Status: Orderedlidocaine 5% topical film 1 patch, Topically, Daily, PRN Pain , Mild, remove after 12 hours, # 30 patch, 5 Refills, Maintenance, 05/02/20 9:17:00 EDT, Film, [facility]/pharmacy #[id number], 1 patch Topically Daily,PRN:Pain , Mild,Instr:remove after 12 hours, 157.48, cm, 07/12/19 10:08:00 E... Start Date: 05/02/20 Status: Orderedlisinopril 5 mg oral tablet 5 mg, 1, tablet, By Mouth, Daily, to protect kidneys, # 90 tablet, Refills 3, Tot. Refills 3, Maintenance, 05/02/20 9:22:00 EDT, Route to Pharmacy Electronically, [facility]/pharmacy #[id number], 157.48, cm, 07/12/19 10:08:00 EDT, Height Start Date: 05/02/20 Status: OrderedmetFORMIN 500 mg oral tablet 1 tablet = 500 mg, By Mouth, 2 times a day, # 60 tablet, 5 Refills, Maintenance, 08/09/20 13:52:00 EST, Tablet, [facility]/pharmacy #[id number], dose change 08/09/20, 157.48, cm, 08/09/20 13:26:00 EST, Height, 57.73, kg, 07/19/20 15:56:00 EDT, Dry Weight Start Date: 08/09/20 Status: OrderedMiraLax oral powder for reconstitution = 17 Gm, By Mouth, Daily, dissolve in water before taking, # 527 Gm, 1 Refills, Maintenance, 01/11/20 8:59:00 EDT, REC Powder, [facility]/pharmacy #[id number], 17 Gm By Mouth Daily,Instr:dissolve in water before taking, 157.48, cm, 07/12/19 10:08:00 EDT, Height Start Date: 01/11/20 Status: Orderedomeprazole 20 mg oral enteric coated capsule 1 capsule = 20 mg, By Mouth, Daily, # 90 capsule, 1 Refills, Maintenance, 04/08/20 13:48:00 EDT, EC Capsule, [facility]/pharmacy #[id number], 157.48, cm, 07/12/19 10:08:00 EDT, Height Start Date: 04/08/20 Status: Orderedsimvastatin 20 mg oral tablet 20 mg, 1, tablet, By Mouth, Daily at bedtime, # 30 tablet, Refills 11, Tot. Refills 11, Maintenance,01/11/20 8:57:00 EDT, Route to Pharmacy Electronically, [facility]/pharmacy #207, 157.48, cm, 07/12/19 10:08:00 EDT, Height Start Date: 01/11/20 Status: OrderedsitaGLIPtin 100 mg oral tablet 1 tablet = 100 mg, By Mouth, Daily, # 30 tablet, 11 Refills, Maintenance, 01/11/20 8:57:00 EDT, Tablet, [facility]/pharmacy #[id number], 157.48, cm, 07/12/19 10:08:00 EDT, Height Start Date: 01/11/20 Status: OrderedTrulicity Pen 0.75 mg/0.5 mL subcutaneous solution 0.5 mL = 0.75 mg, Subcutaneous Injection, Every week, # 2.5 mL, 5 Refills, Maintenance, 08/09/20 13:59:00 EST, Solution, [facility]/pharmacy #[id number], Partial fill upon patient request, 157.48, cm, 08/09/20 13:26:00 EST, Height, 57.73, kg, 07/19/20 15:56:00 EDT... Start Date: 08/09/20 Status: OrderedVentolin HFA 108 mcg/inh inhalation aerosol with adapter 1 puffs, Inhalation, 4 times a day, PRN for wheezing, PLEASE DISPENSE VENTOLIN, NOT PROAIR, CLIENT DOES NOT TOLERATE PRO AIR, # 18 Gm, 11 Refills, Maintenance, 01/11/20 8:57:00 EDT, Aerosol, [facility]/pharmacy #[id number], 157.48, cm, 07/12/19 10:08:00 EDT, Height [...] Snoring symptom(Confirmed)7 2011 Active 1per -2009 pulm [id number]/p Right ear surg 12/20103h/o hearing loss, rt side4 chronic, Rt, seen by ENT5s/p forcepts [id number] on 2010 [id number] to severe on 2011 sleep study Social History Social History Type Response Smoking Status Light tobacco smoker entered on: 11/23/13 Sex
--- OUTSIDE RECORDS SUMMARY | 2022-06-29 00:01 | XMS_ITS | Continuity of Care Document ---
:1960 Author Organization [facility] Address [address] [place] [address]- Care Team Providers Name Role Phone Cam BAÑUELOS, Aarti Arndt Primary Care Physician [facility] - 12[facility]25/20 [facility] [address] [place] [phone]- Attending Physician: Aimee Head Admitting Physician: AdmAimee montero Referring Physician: AdmtrAimee Allergies, Adverse Reactions, Alerts Substance Reaction Severity Status doxycycline unknown Active thiazolidinediones eczema Active [id number] [D]Nausea Active Stomach ache [D]Headache sulfonylureas rash Active aspirin GI Upset Active penicillins hives Persistent Moderate Active 1see visit note Immunizations Given and [...] (Td)7 12/19/09 Given 1Result Comment: [06/08/2013] Flulaval [id number]. VIS in Wallisian [id number] Note: VIS [id number] Note: VIS GIVEN VIS DATE 04/14/1150uzgfalv4Nrkkp Note: VIS GIVEN 04/29/10 [id number] Note: vis foryr6Gudym Note: vis 04/287Admin Note: vis 03/25 Medications albuterol 0.083% inhalation solution 3 mL = 2.5 mg, Inhalation, 2 times a day, PRN Wheezing/Shortness of Breath, # 180 each, 3 Refills, Maintenance, 01/11/20 8:57:00 EDT, Inhalation Solution, [facility]/pharmacy #[id number], 157.48, cm, 07/12/19 10:08:00 EDT, Height Start Date: 01/11/20 Stop Date: 01/05/21 Status: OrderedArtificial Tears preserved solution 1 drops, Eyes, Both, 2 times a day, PRN for dry eyes, # 30 mL, 1 Refills, Maintenance, 10/02/20 13:31:00 EST, Solution, [facility]/pharmacy #[id number], Partial fill upon patient request if the prescription is for a schedule II opioid drug., 1 drops Eyes, Both 2 t... Start Date: 10/02/20 Status: Orderedcapsaicin 0.025% topical cream 1 application, Topically, 2 times a day, avoid contact with face and eyes, # 45 Gm, 5 Refills, Maintenance, 01/11/20 8:57:00 EDT, Cream, [facility]/pharmacy #[id number], instructions in Wallisian, 1 application Topically 2 times a day,Instr:avoid contact with face a... Start Date: 01/11/20 Status: OrderedClaritin 10 mg oral tablet 10 mg, 1, tablet, By Mouth, Daily, Label in Wallisian, # 90 tablet, Refills 3, Tot. Refills 3, Maintenance, 01/11/20 8:58:00 EDT, Route to Pharmacy Electronically, [facility]/pharmacy #[id number], 157.48, cm, 07/12/19 10:08:00 EDT, Height Start Date: 01/11/20 Stop Date: 01/05/21 Status: Ordereddocusate-senna 50 mg-187 mg oral tablet 2 tablet, By Mouth, Daily at bedtime, PRN Constipation, # 60 tablet, 11 Refills, Maintenance, 05/30/20 11:37:00 EDT, Tablet, [facility]/pharmacy #[id number], 2 tablet By Mouth Daily at bedtime,PRN:Constipation, 157.48, cm, 05/30/20 11:02:00 EDT, Height Start Date: 05/30/20 Status: OrderedFLUoxetine 20 mg oral capsule 20 mg, 1, capsule, By Mouth, Daily, # 90 capsule, Refills 3, Tot. Refills 3, Maintenance, 01/11/20 8:57:00 EDT, Route to Pharmacy Electronically, [facility]/pharmacy #[id number], 157.48, cm, 07/12/19 10:08:00 [...] 2 Refills, Maintenance, 05/02/20 9:12:00 EDT, Tablet, [facility]/pharmacy #207, note increased dose, 157.48, cm, 07/12/19 10:08:00 EDT, Height Start Date: 05/02/20 Status: OrderedLantus Solostar Pen 100 units/mL subcutaneous solution = 10 units, Subcutaneous Injection, Daily, # 10 mL, 11 Refills, Maintenance, 09/09/20 17:43:00 EST, Solution, [facility]/pharmacy #[id number], Wallisian label please, 157.48, cm, 08/09/20 13:26:00 EST, Height, 57.73,kg, 07/19/20 15:56:00 EDT, Dry Weight Start Date: 09/09/20 Status: Orderedlevothyroxine 75 mcg (0.075 mg) oral tablet 1 tablet = 75 mcg, By Mouth, Daily, # 90 tablet, 3 Refills, Maintenance, 10/02/20 13:30:00 EST, Tablet, [facility]/pharmacy #207, Dose changes from 88mcg to 75mcg 10/02/20, 157.48, cm, 08/09/20 13:26:00 EST, Height, 57.73, kg, 07/19/20 15:56:00 EDT, Dry Weight Start Date: 10/02/20 Status: Orderedlidocaine 5% topical film 1 patch, Topically, Daily, PRN Pain , Mild, remove after 12 hours, # 30 patch, 5 Refills, Maintenance, 05/02/20 9:17:00 EDT, Film, [facility]/pharmacy #207, 1 patch Topically Daily,PRN:Pain , Mild,Instr:remove after 12 hours, 157.48, cm, 07/12/19 10:08:00 E... Start Date: 05/02/20 Status: Orderedlisinopril 5 mg oral tablet 5 mg, 1, tablet, By Mouth, Daily, to protect kidneys, # 90 tablet, Refills 3, Tot. Refills 3, Maintenance, 05/02/20 9:22:00 EDT, Route to Pharmacy Electronically, [facility]/pharmacy #207, 157.48, cm, 07/12/19 10:08:00 EDT, Height Start Date: 05/02/20 Status: OrderedmetFORMIN 500 mg oral tablet 1 tablet = 500 mg, By Mouth, 2 times a day, # 60 tablet, 5 Refills, Maintenance, 09/18/20 14:17:00 EST, Tablet, [facility]/pharmacy #207, dose change 08/09/20, 157.48, cm, 08/09/20 13:26:00 EST, Height, 57.73, kg, 07/19/20 15:56:00 EDT, Dry Weight Start Date: 09/18/20 Status: OrderedMiraLax oral powder for reconstitution = 17 Gm, By Mouth, Daily, dissolve in water before taking, # 527 Gm, 1 Refills, Maintenance, 01/11/20 8:59:00 EDT, REC Powder, [facility]/pharmacy #[id number], 17 Gm By Mouth Daily,Instr:dissolve in water before taking, 157.48, cm, 07/12/19 10:08:00 EDT, Height Start Date: 01/11/20 Status: Orderedomeprazole 20 mg oral enteric coated capsule 1 capsule = 20 mg, By Mouth, Daily, # 90 capsule, 1 Refills, Maintenance, 04/08/20 13:48:00 EDT, EC Capsule, [facility]/pharmacy #2070, 157.48, cm, 07/12/19 10:08:00 EDT, Height Start Date: 04/08/20 Status: OrderedPen Herrin, 30 G x 8 mm BD Ultra [...] Maintenance,01/11/20 8:57:00 EDT, Route to Pharmacy Electronically, [facility]/pharmacy #207, 157.48, cm, 07/12/19 10:08:00 EDT, Height Start Date: 01/11/20 Status: OrderedsitaGLIPtin 100 mg oral tablet 1 tablet = 100 mg, By Mouth, Daily, # 30 tablet, 11 Refills, Maintenance, 01/11/20 8:57:00 EDT, Tablet, [facility]pharmacy [facility][id number], 157.48, cm, 07/12/19 10:08:00 EDT, Height Start Date: 01/11/20 Status: OrderedTrulicity Pen 0.75 mg/0.5 mL subcutaneous solution 0.5 mL = 0.75 mg, Subcutaneous Injection, Every week, # 2.5 mL, 5 Refills, Maintenance, 08/09/20 13:59:00 EST, Solution, [facility], Partial fill upon patient request, 157.48, cm, [...] Snoring symptom(Confirmed)7 2011 Active 1per -2009 pulm [id number]/p Right ear surg 12/20103h/o hearing loss, rt side4 chronic, Rt, seen by ENT5s/p forcepts [id number] on 2010 [id number] to severe on 2011 sleep study Procedures Procedure Date Related Diagnosis Body Site Status COLONOSCOPY1 12/04/09 Completed 1NO COMPLICATIONS. REPEAT IN 10 YEARS. Social History Social History Type Response Smoking Status Light tobacco smoker entered on: 11/23/13 Sex
--- OUTSIDE RECORDS SUMMARY | 2022-06-29 00:02 | XMS_ITS | Continuity of Care Document ---
:1960 Author Organization [facility] Address [address] [place] [address]- Care Team Providers Name Role Phone Cam BAÑUELOS, Aarti Arndt Primary Care Physician [facility]20 - 05/15/20 [facility] [address] [place] [id number]- [facility] Allergies, Adverse Reactions, Alerts Substance Reaction Severity [...] (Td)7 12/19/09 Given 1Result Comment: [06/08/2013] Flulaval [id number]. VIS in [place] Islander [id number] Note: VIS [id number] Note: VIS GIVEN VIS DATE 04/14/[id number] Note: VIS GIVEN 04/29/10 [id number] Note: vis [id number] Note: vis 04/287Admin Note: vis 03/25 Medications albuterol 0.083% inhalation solution 3 mL = 2.5 mg, Inhalation, 2 times a day, PRN Wheezing/Shortness of Breath, # 180 each, 3 Refills, Maintenance, 01/11/20 8:57:00 EDT, Inhalation Solution, [facility]/pharmacy #[id number], 157.48, cm, 07/12/19 10:08:00 EDT, Height Start Date: 01/11/20 Stop Date: 01/05/21 Status: Orderedbaclofen 10 mg oral tablet 10 mg, 1, tablet, By Mouth, 2 times a day, for back pain, # 14 tablet, Refills 1, Tot. Refills 1, Maintenance, 03/29/20 16:40:00 EDT, Route to Pharmacy Electronically, [facility]/pharmacy #[id number], 157.48, cm, 07/12/19 10:08:00 EDT, Height Start Date: 03/29/20 Stop Date: 04/12/20 Status: Orderedbetamethasone topical dipropionate 0.05% cream See Instructions, # 45 Gm, Refills 2 Tot. Refills 2, APLIQUE AL AREA AFECTADA DOS VECES AL PRINCE, [facility]/pharmacy #[id number] Start Date: 06/25/19 Status: Orderedcapsaicin 0.025% topical cream 1 application, Topically, 2 times a day, avoid contact with face and eyes, # 45 Gm, 5 Refills, Maintenance, 01/11/20 8:57:00 EDT, Cream, [facility]/pharmacy #[id number], instructions in [place] Island[place], 1 application Topically 2 times a day,Instr:avoid contact with face a... Start Date: 01/11/20 Status: OrderedClaritin 10 mg oral tablet 10 mg, 1, tablet, By Mouth, Daily, Label in [place], # 90 tablet, Refills 3, Tot. Refills 3, Maintenance, 01/11/20 8:58:00 EDT, Route to Pharmacy Electronically, [facility]/pharmacy #[id number], 157.48, cm, 07/12/19 10:08:00 EDT, Height Start Date: 01/11/20 Stop Date: 01/05/21 Status: Orderedclotrimazole 1% topical cream 1 application, Topically, 2 times a day, for 14 days, for external use only, # 30 Gm, 0 Refills, Acute 05/16/20 9:16:00 EDT, 05/02/20 9:16:00 EDT, Cream, [facility]/pharmacy #[id number], 1 application Topically 2 times a [...] Refills, Soft Stop, 05/07/20 7:59:00 EDT, Tablet, [facility]/pharmacy #207, 157.48, cm, 07/12/19 10:08:00 EDT, Height Start Date: 05/07/20 Status: OrderedFLUoxetine 20 mg oral capsule 20 mg, 1, capsule, By Mouth, Daily, # 90 capsule, Refills 3, Tot. Refills 3, Maintenance, 01/11/20 8:57:00 EDT, Route to Pharmacy Electronically, [facility]/pharmacy #[id number], 157.48, cm, 07/12/19 10:08:00 EDT, Height Start Date: 01/11/20 Status: OrderedFreestyle Lite Monitor See Instructions, # 1 each, Maintenance, Dx: dm2, 1-2 times daily checks, 07/12/19 11:21:40 EDT, Compound Start Date: 07/12/19 Status: Orderedgabapentin 600 mg oral tablet 1 tablet = 600 mg, By Mouth, 3 times a day, # 90 tablet, 2 Refills, Maintenance, 05/02/20 9:12:00 EDT, Tablet, [facility]/pharmacy #207, note increased dose, 157.48, cm, [...] 5 Refills, Maintenance, 05/02/20 9:17:00 EDT, Film, [facility]/pharmacy #[id number], 1 patch Topically Daily,PRN:Pain , Mild,Instr:remove after 12 hours, 157.48, cm, 07/12/19 10:08:00 E... Start Date: 05/02/20 Status: Orderedlisinopril 5 mg oral tablet 5 mg, 1, tablet, By Mouth, Daily, to protect kidneys, # 90 tablet, Refills 3, Tot. Refills 3, Maintenance, 05/02/20 9:22:00 EDT, Route to Pharmacy Electronically, [facility]/pharmacy #207, 157.48, cm, 07/12/19 10:08:00 EDT, Height Start Date: 05/02/20 Status: OrderedmetFORMIN 750 mg oral tablet, extended release 1 tablet = 750 mg, By Mouth, Daily, # 30 tablet, 11 Refills, Maintenance, 01/11/20 8:57:00 EDT, ER Tablet, [facility]/pharmacy #207, 157.48, cm, 07/12/19 10:08:00 EDT, Height Start Date: 01/11/20 Status: OrderedMiraLax oral powder for reconstitution = 17 Gm, By Mouth, Daily, dissolve in water before taking, # 527 Gm, 1 Refills, Maintenance, 01/11/20 8:59:00 EDT, REC Powder, [facility]/pharmacy #207, 17 Gm By Mouth Daily,Instr:dissolve in water before taking, 157.48, cm, 07/12/19 10:08:00 EDT, Height Start Date: 01/11/20 Status: Orderednabumetone 750 mg oral tablet 1 tablet = 750 mg, By Mouth, 2 times a day, # 60 tablet, 0 Refills, Maintenance, 03/29/20 16:37:00 EDT, Tablet, [facility]/pharmacy #207, 157.48, cm, 07/12/19 10:08:00 EDT, Height Start Date: 03/29/20 Status: Orderedomeprazole 20 mg oral enteric coated capsule 1 capsule = 20 mg, By Mouth, Daily, # 90 capsule, 1 Refills, Maintenance, 04/08/20 13:48:00 EDT, EC Capsule, [facility]/pharmacy #[id number], 157.48, cm, 07/12/19 10:08:00 EDT, Height Start Date: 04/08/20 Status: Orderedsimvastatin 20 mg oral tablet 20 mg, 1, tablet, By Mouth, Daily at bedtime, # 30 tablet, Refills 11, Tot. Refills 11, Maintenance,01/11/20 8:57:00 EDT, Route to Pharmacy Electronically, [facility]/pharmacy #[id number], 157.48, cm, 07/12/19 10:08:00 EDT, Height Start Date: 01/11/20 Status: OrderedsitaGLIPtin 100 mg oral tablet 1 tablet = 100 mg, By Mouth, Daily, # 30 tablet, 11 Refills, Maintenance, 01/11/20 8:57:00 EDT, [facility] 157[facility], cm, 07/12/19 10:08:00 EDT, Height Start Date: 01/11/20 Status: OrderedVentolin HFA 108 mcg/inh inhalation aerosol with adapter 1 puffs, Inhalation, 4 times a day, PRN for wheezing, PLEASE DISPENSE VENTOLIN, NOT PROAIR, CLIENT DOES NOT TOLERATE PRO AIR, # 18 Gm, 11 Refills, Maintenance, 01/11/20 8:57:00 EDT, Aerosol, [facility]/pharmacy #[id number], 157.48, cm, 07/12/19 10:08:00 EDT, [...] 11/02/11 Active Snoring symptom(Confirmed)2011 Active 1per pulm [id number]/p Right ear surg 12/20103h/o hearing loss, rt side4 chronic, Rt, seen by ENT5s/p forcepts [id number] on 2010 [id number] to severe on 2011 sleep study Social History Social History Type Response Smoking Status Light tobacco smoker entered on: 11/23/13 Sex
--- OUTSIDE RECORDS SUMMARY | 2022-06-29 00:02 | XMS_ITS | Continuity of Care Document ---
:1960 Author Organization [facility] Address [address] [place] [phone]- Care Team Providers Name Role Phone Cam BAÑUELOS, Aarti Arndt Primary Care Physician [facility] Date[facility]): 11[facility]21 - 12/28/21 [facility] [address] [place] [phone]- Allergies, Adverse Reactions, Alerts Substance Reaction Severity Status doxycycline unknown Active aspirin GI Upset Active penicillins hives Persistent Moderate Active sulfonylureas rash Active thiazolidinediones eczema Active traMADOL1 [D]Nausea Active Stomach ache [D]Headache 1see visit note Immunizations Given and Recorded Vaccine Date Status Refusal Reason SARS-CoV-2 (COVID-19) mRNA BNT-162b2 vac 08/20/21 Given SARS-CoV-2 (COVID-19) mRNA BNT-162b2 vac 11/25/20 Given SARS-CoV-2 (COVID-19) mRNA BNT-162b2 vac 11/04/20 Given influenza virus vaccine, inactivated 07/17/21 Given influenza virus vaccine, inactivated 06/27/20 Given [...] (Td)7 12/19/09 Given 1Result Comment: [06/08/2013] Flulaval [id number]. VIS in [place] [id number] Note: VIS [id number] Note: VIS GIVEN VIS DATE 04/14/[id number] Note: VIS GIVEN 04/29/10 [id number] Note: vis [id number] Note: vis 04/287Admin Note: vis 03/25 Medications albuterol 0.083% inhalation solution 3 mL = 2.5 mg, Inhalation, 2 times a day, PRN Wheezing/Shortness of Breath, # 180 each, 3 Refills, Maintenance, 04/25/21 10:01:00 EDT, Inhalation Solution, [facility]pharmacy #[id number], 157.48, cm, 03/06/21 9:17:00 EDT, Height, [...] 2 Refills, Maintenance, 06/09/21 11:18:00 EDT, Solution, [id number], Partial fill upon patient request if the prescription is for a schedule II opioid drug., 1 drops Eyes, Both 2 t... Start Date: 06/09/21 Status: Orderedcapsaicin 0.025% topical cream 1 application, Topically, 2 times a day, avoid contact with face and eyes, # 45 Gm, 5 Refills, Maintenance, 10/27/21 14:54:00 EST, Cream, [id number], instructions in [place]ian, 1 application Topically 2 times a day,Instr:avoid contact with face... Start Date: 2/7/22 Status: OrderedClaritin 10 mg oral tablet 10 mg, 1, tablet, By Mouth, Daily, Label in [place]ian, # 90 tablet, Refills 3, Tot. Refills 3, Maintenance, 04/25/21 10:01:00 EDT, Route to Pharmacy Electronically, [facility]/pharmacy #[id number], 157.48, cm, 03/06/21 9:17:00 EDT, Height, 57.73, kg, 07/19/20 15:56:... Start Date: 04/25/21 Stop Date: 04/20/22 Status: Ordereddocusate-senna 50 mg-187 mg oral tablet 2 tablet, By Mouth, Daily at bedtime, PRN Constipation, # 60 tablet, 11 Refills, Maintenance, 04/25/21 10:03:00 EDT, Tablet, [facility]/pharmacy #[id number], 2 tablet By Mouth Daily at bedtime,PRN:Constipation, 157.48, cm, 03/06/21 9:17:00 EDT, Height, 57.73, kg,... Start Date: 04/25/21 Status: Orderedfluocinonide 0.05% topical cream 1 application, Topically, 2 times a day, for 14 days, # 30 Gm, 1 Refills, Acute 12/29/21 9:06:00 EDT, 12/01/21 9:06:00 EDT, Cream, [facility]/pharmacy #[id number], Partial fill upon patient request if the prescription is for a schedule II opioid drug., 1 applicati... Start Date: 12/01/21 Stop Date: 12/29/21 Status: OrderedFLUoxetine 20 mg oral capsule 20 mg, 1, capsule, By Mouth, Daily, # 90 capsule, Refills 3, Tot. Refills 3, Maintenance, 04/25/21 10:01:00 EDT, Route to Pharmacy Electronically, [facility]/pharmacy #[id number], 157.48, cm, 03/06/21 9:17:00 EDT, Height, [...] Refills 11, Maintenance, Dx: check twice daily, 11/28/21 17:15:00 EST, Supply, 157.48, cm, 06/24/21 9:15:00 EDT, Height, 57.73, kg, 07/19/20 15:56:00 EDT,Dry Weight Start Date: 11/28/21 Status: Orderedgabapentin 600 mg oral tablet 1 tablet = 600 mg, By Mouth, 2 times a day, # 90 tablet, 2 Refills, Maintenance, 05/02/20 9:12:00 EDT, Tablet, [facility]/pharmacy #[id number], note increased dose, 157.48, cm, 07/12/19 10:08:00 EDT, Height Start Date: 05/02/20 Status: Orderedhydrocortisone 2.5% topical cream 1 application, Topically, 3 times a day, apply to rash on neck. instr namibian, # 20 Gm, 0 Refills, Maintenance, 04/28/21 19:30:00 EDT, Cream, [id number], Partial fill upon patient request if the prescription is for a schedule II opioid drug.,... Start Date: 04/28/21 Status: OrderedLantus Solostar Pen 100 units/mL subcutaneous solution = 18 units, Subcutaneous Injection, Daily, # 12 mL, 11 Refills, Maintenance, 06/17/21 12:13:00 EDT, Solution, [id number], [place]ian label please. Dose increase to 18u 06/17/21, 157.48, cm, 06/09/21 10:45:00 EDT, Height, 57.73, kg, 07/19/20 15:56:... Start Date: 06/17/21 Status: Orderedlevothyroxine 75 mcg (0.075 mg) oral tablet 1 tablet = 75 mcg, By Mouth, Daily, # 90 tablet, 1 Refills, Maintenance, 10/24/21 14:10:00 EST, Tablet, [id number], Dose changes from 88mcg to 75mcg 10/02/20, 157.48, cm, 06/24/21 9:15:00 EDT, Height, 57.73, kg, 07/19/20 15:56:00 EDT, Dry Weight Start Date: 10/24/21 Status: Orderedlisinopril 5 mg oral tablet 5 mg, 1, tablet, By Mouth, Daily, to protect kidneys, # 90 tablet, Refills 3, Tot. Refills 3, Maintenance, 07/18/21 9:44:00 EDT, Route to Pharmacy Electronically, [facility]/pharmacy #[id number], 157.48, cm, 06/24/21 9:15:00 EDT, Height, 57.73, kg, 07/19/20 15:56:... Start Date: 07/18/21 Status: OrderedmetFORMIN 500 mg oral tablet 1 tablet = 500 mg, By Mouth, 2 times a day, # 60 tablet, 5 Refills, Maintenance, 04/25/21 10:02:00 EDT, Tablet, [facility]/pharmacy #[id number], dose change 08/09/20, 157.48, cm, 03/06/21 [...] day, apply to vulvar bump only. instr namibian, # 15 Gm, 0 Refills, Maintenance, 02/25/21 16:46:00 EDT, Ointment, [facility]/pharmacy #[id number], Partial fill upon patient request if the prescription is for a schedule II opioid... Start Date: 02/25/21 Stop Date: 03/11/21 Status: Orderedomeprazole 20 mg oral enteric coated capsule 1 capsule = 20 mg, By Mouth, Daily, use as little as needed to control symptoms, # 90 capsule, 1 Refills, Maintenance, 07/18/21 9:44:00 EDT, EC Capsule, [facility]/pharmacy #207, 157.48, cm, 06/24/21 9:15:00EDT, Height, 57.73, kg, 07/19/20 15:56:00 EDT, Start Date: 07/18/21 Status: OrderedPen [place], 30 G x 8 mm BD Ultra [...] Maintenance,04/25/21 10:01:00 EDT, Route to Pharmacy Electronically, [facility]/pharmacy #207, 157.48, cm, 03/06/21 9:17:00 EDT, Height, 57.73, kg, 07/19/20 15:56:00 ED... Start Date: 04/25/21 Status: OrderedsitaGLIPtin 100 mg oral tablet 1 tablet = 100 mg, By Mouth, Daily, # 30 tablet, 11 Refills, Maintenance, 04/25/21 10:01:00 EDT, Tablet, [facility], 157.48, cm, 03/06/21 9:17:00 EDT, Height, 57.73, kg, 07/19/20 15:56:00 EDT, Dry Weight Start Date: 04/25/21 Status: OrderedVentolin HFA 108 mcg/inh inhalation aerosol with adapter 1 puffs, Inhalation, 4 times a day, PRN for wheezing, PLEASE DISPENSE VENTOLIN, NOT PROAIR, CLIENT DOES NOT TOLERATE PRO AIR, # 18 Gm, 11 Refills, Maintenance, 04/25/21 10:01:00 EDT, Aerosol, [id number], 157.48, cm, 03/06/21 9:17:00 EDT, Heigh... [...] Active Snoring symptom(Confirmed)7 2011 Active 1per pulm [id number]/p Right ear surg 12/20103h/o hearing loss, rt side4 chronic, Rt, seen by ENT5s/p forcepts [id number] on 2010 [id number] to severe on 2011 sleep study Social History Social History Type Response Smoking Status Light tobacco smoker entered on: 11/23/13 Sex
--- OUTSIDE RECORDS SUMMARY | 2022-06-29 00:02 | XMS_ITS | Continuity of Care Document ---
:1960 Author Organization [facility] Address [address] [place] [address]- Care Team Providers Name Role Phone Cam BAÑUELOS, Aarti Arndt Primary Care Physician [facility] Date[facility]s): 12/23/20 - 01/22/[address] [id number] Attending Physician: Admkylah, Aimee Admitting Physician: Admtr, Ar8 Referring Physician: [...] (Td)7 12/19/09 Given 1Result Comment: [06/08/2013] Flulaval [id number]. VIS in [place]itian [id number] Note: VIS [id number] Note: VIS GIVEN VIS DATE 04/14/[id number] Note: VIS GIVEN 04/29/10 [id number] Note: vis [id number] Note: vis 04/287Admin Note: vis 03/25 Medications albuterol 0.083% inhalation solution 3 mL = 2.5 mg, Inhalation, 2 times a day, PRN Wheezing/Shortness of Breath, # 180 each, 3 Refills, Maintenance, 01/11/20 8:57:00 EDT, Inhalation Solution, [facility]/pharmacy #[id number], 157.48, cm, 07/12/19 10:08:00 EDT, Height Start Date: 01/11/20 Stop Date: 01/05/21 Status: OrderedArtificial Tears preserved solution 1 drops, Eyes, Both, 2 times a day, PRN for dry eyes, # 30 mL, 1 Refills, Maintenance, 10/02/20 13:31:00 EST, Solution, [facility]/pharmacy #[id number], Partial fill upon patient request if the prescription is for a schedule II opioid drug., 1 drops Eyes, Both 2 t... Start Date: 10/02/20 Status: Orderedcapsaicin 0.025% topical cream 1 application, Topically, 2 times a day, avoid contact with face and eyes, # 45 Gm, 5 Refills, Maintenance, 01/11/20 8:57:00 EDT, Cream, [facility]/pharmacy #[id number], instructions in [place]itian, 1 application Topically 2 times a day,Instr:avoid contact with face a... Start Date: 01/11/20 Status: OrderedClaritin 10 mg oral tablet 10 mg, 1, tablet, By Mouth, Daily, Label in [place], # 90 tablet, Refills 3, Tot. Refills 3, Maintenance, 01/11/20 8:58:00 EDT, Route to Pharmacy Electronically, [facility]/pharmacy #[id number], 157.48, cm, 07/12/19 10:08:00 EDT, Height Start Date: 01/11/20 Stop Date: 01/05/21 Status: Ordereddocusate-senna 50 mg-187 mg oral tablet 2 tablet, By Mouth, Daily at bedtime, PRN Constipation, # 60 tablet, 11 Refills, Maintenance, 05/30/20 11:37:00 EDT, Tablet, [facility]/pharmacy #[id number], 2 tablet By Mouth Daily at bedtime,PRN:Constipation, 157.48, cm, 05/30/20 11:02:00 EDT, Height Start Date: 05/30/20 Status: OrderedFLUoxetine 20 mg oral capsule 20 mg, 1, capsule, By Mouth, Daily, # 90 capsule, Refills 3, Tot. Refills 3, Maintenance, 01/11/20 8:57:00 EDT, Route to Pharmacy Electronically, [facility]/pharmacy #2071, 157.48, cm, 07/12/19 10:08:00 EDT, [...] 2 Refills, Maintenance, 05/02/20 9:12:00 EDT, Tablet, [facility]/pharmacy #2071, note increased dose, 157.48, cm, [...] 11 Refills, Maintenance, 09/09/20 17:43:00 EST, Solution, [facility]/pharmacy #2071, Mauritian label please, 157.48, cm, 08/09/20 13:26:00 EST, Height, 57.73,kg, 07/19/20 15:56:00 EDT, Dry Weight Start Date: 09/09/20 Status: Orderedlevothyroxine 75 mcg (0.075 mg) oral tablet 1 tablet = 75 mcg, By Mouth, Daily, # 90 tablet, 3 Refills, Maintenance, 10/02/20 13:30:00 EST, Tablet, [facility]/pharmacy #2071, Dose changes from 88mcg to 75mcg 10/02/20, 157.48, cm, 08/09/20 13:26:00 EST, Height, 57.73, kg, 07/19/20 15:56:00 EDT, Dry Weight Start Date: 10/02/20 Status: Orderedlidocaine 5% topical film 1 patch, Topically, Daily, PRN Pain , Mild, remove after 12 hours, # 30 patch, 5 Refills, Maintenance, 05/02/20 9:17:00 EDT, Film, [facility]/pharmacy #[id number], 1 patch Topically Daily,PRN:Pain , Mild,Instr:remove after 12 hours, 157.48, cm, 07/12/19 10:08:00 E... Start Date: 05/02/20 Status: Orderedlisinopril 5 mg oral tablet 5 mg, 1, tablet, By Mouth, Daily, to protect kidneys, # 90 tablet, Refills 3, Tot. Refills 3, Maintenance, 05/02/20 9:22:00 EDT, Route to Pharmacy Electronically, [facility]/pharmacy #207, 157.48, cm, 07/12/19 10:08:00 EDT, Height Start Date: 05/02/20 Status: OrderedmetFORMIN 500 mg oral tablet 1 tablet = 500 mg, By Mouth, 2 times a day, # 60 tablet, 5 Refills, Maintenance, 09/18/20 14:17:00 EST, Tablet, [facility]/pharmacy #207, dose change 08/09/20, 157.48, cm, 08/09/20 13:26:00 EST, Height, 57.73, kg, 07/19/20 15:56:00 EDT, Dry Weight Start Date: 09/18/20 Status: OrderedMiraLax oral powder for reconstitution = 17 Gm, By Mouth, Daily, dissolve in water before taking, # 527 Gm, 1 Refills, Maintenance, 01/11/20 8:59:00 EDT, REC Powder, [facility]/pharmacy #[id number], 17 Gm By Mouth Daily,Instr:dissolve in water before taking, 157.48, cm, 07/12/19 10:08:00 EDT, Height Start Date: 01/11/20 Status: Orderedomeprazole 20 mg oral enteric coated capsule 1 capsule = 20 mg, By Mouth, Daily, # 90 capsule, 1 Refills, Maintenance, 01/08/21 14:58:00 EDT, EC Capsule, [facility]/pharmacy #2070, 157.48, cm, 08/09/20 13:26:00 EST, Height, 57.73, kg, 07/19/20 15:56:00 EDT, Dry Weight Start Date: 01/08/21 Status: OrderedPen [place], 30 G x 8 mm BD Ultra [...] Maintenance,01/11/20 8:57:00 EDT, [facility] 157.48, cm, 07/12/19 10:08:00 EDT, Height Start Date: 01/11/20 Status: OrderedsitaGLIPtin 100 mg oral tablet 1 tablet = 100 mg, By Mouth, Daily, # 30 tablet, 11 Refills, Maintenance, 01/11/20 8:57:00 EDT, Tablet, [facility]/pharmacy #2070, 157.48, cm, 07/12/19 10:08:00 EDT, Height Start Date: 01/11/20 Status: OrderedTrulicity Pen 0.75 mg/0.5 mL subcutaneous solution 0.5 mL = 0.75 mg, Subcutaneous Injection, Every week, # 2.5 mL, 5 Refills, Maintenance, 08/09/20 13:59:00 EST, Solution, [facility]/pharmacy #207, Partial fill upon patient request, 157.48, cm, 08/09/20 13:26:00 EST, Height, 57.73, kg, 07/19/20 15:56:00 EDT... Start Date: 08/09/20 Status: OrderedVentolin HFA 108 mcg/inh inhalation aerosol with adapter 1 puffs, Inhalation, 4 times a day, PRN for wheezing, PLEASE DISPENSE VENTOLIN, NOT PROAIR, CLIENT DOES NOT TOLERATE PRO AIR, # 18 Gm, 11 Refills, Maintenance, 01/11/20 8:57:00 EDT, Aerosol, [facility]/pharmacy #2070, 157.48, cm, 07/12/19 10:08:00 EDT, Height Start Date: 01/11/20 Status: Ordered Problem List Condition Effective Dates Status Health Status Informant Anemia(Confirmed) Active Asthma(Confirmed)1 Active Cataract(Confirmed) Active Chronic mastoiditis(Confirmed)2 Active Diabetes mellitus - adult 10/22/11 Active onset(Confirmed) Ear pain(Confirmed)3, 4 Active Rash(Confirmed) Active Hypothyroid(Confirmed) Active Impaired fasting glycaemia(Confirmed) 08/2009 Active Low back pain(Confirmed)5 1980 Active Lumbar spinal stenosis(Confirmed)6 Active Obstructive sleep apnea(Confirmed) 11/02/11 Active Snoring symptom(Confirmed)7 2011 Active 1per -2009 pulm irrqj9H/p Right ear surg 12/20103h/o hearing loss, rt side4 chronic, Rt, seen by ENT5s/p forcepts [id number] on 2010 [id number] to severe on 2011 sleep study Social History Social History Type Response Smoking Status Light tobacco smoker entered on: 11/23/13 Sex
--- OUTSIDE RECORDS SUMMARY | 2022-06-29 00:02 | XMS_ITS | Continuity of Care Document ---
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 VIS in Andorran [id number] Note: VIS [id number] Note: VIS GIVEN VIS DATE 04/14/[id number] Note: VIS GIVEN 04/29/10 [id number] Note: vis [id number] Note: vis 04/287Admin Note: vis 03/25 Medications albuterol 0.083% inhalation solution 3 mL = 2.5 mg, Inhalation, 2 times a day, PRN Wheezing/Shortness of Breath, # 180 each, 3 Refills, Maintenance, 01/11/20 8:57:00 EDT, Inhalation Solution, [facility]/pharmacy #207, 157.48, cm, 07/12/19 10:08:00 EDT, Height Start Date: 01/11/20 Stop Date: 01/05/21 Status: OrderedArtificial Tears preserved solution 1 drops, Eyes, Both, 2 times a day, PRN for dry eyes, # 30 mL, 1 Refills, Maintenance, 10/02/20 13:31:00 EST, Solution, [facility]/pharmacy #207, Partial fill upon patient request if the prescription is for a schedule II opioid drug., 1 drops Eyes, Both 2 t... Start Date: 10/02/20 Status: Orderedcapsaicin 0.025% topical cream 1 application, Topically, 2 times a day, avoid contact with face and eyes, # 45 Gm, 5 Refills, Maintenance, 01/11/20 8:57:00 EDT, Cream, [facility]/pharmacy #207, instructions in Andorran, 1 application Topically 2 times a day,Instr:avoid contact with face a... Start Date: 01/11/20 Status: OrderedClaritin 10 mg oral tablet 10 mg, 1, tablet, By Mouth, Daily, Label in Andorran, # 90 tablet, Refills 3, Tot. Refills 3, Maintenance, 01/11/20 8:58:00 EDT, Route to Pharmacy Electronically, [facility]/pharmacy #207, 157.48, cm, 07/12/19 10:08:00 EDT, Height Start Date: 01/11/20 Stop Date: 01/05/21 Status: Ordereddocusate-senna 50 mg-187 mg oral tablet 2 tablet, By Mouth, Daily at bedtime, PRN Constipation, # 60 tablet, 11 Refills, Maintenance, 05/30/20 11:37:00 EDT, Tablet, [facility]/pharmacy #207, 2 tablet By Mouth Daily at bedtime,PRN:Constipation, 157.48, cm, 05/30/20 11:02:00 EDT, Height Start Date: 05/30/20 Status: OrderedFLUoxetine 20 mg oral capsule 20 mg, 1, capsule, By Mouth, Daily, # 90 capsule, Refills 3, Tot. Refills 3, Maintenance, 01/11/20 8:57:00 EDT, Route to Pharmacy Electronically, [facility]/pharmacy #[id number], 157.48, cm, 07/12/19 10:08:00 EDT, [...] 2 Refills, Maintenance, 05/02/20 9:12:00 EDT, Tablet, [facility]/pharmacy #[id number], note increased dose, 157.48, cm, 07/12/19 10:08:00 EDT, Height Start Date: 05/02/20 Status: OrderedLantus Solostar Pen 100 units/mL subcutaneous solution = 10 units, Subcutaneous Injection, Daily, # 10 mL, 11 Refills, Maintenance, 09/09/20 17:43:00 EST, Solution, [facility]/pharmacy #[id number], Andorran label please, 157.48, cm, 08/09/20 13:26:00 EST, Height, 57.73,kg, 07/19/20 15:56:00 EDT, Dry Weight Start Date: 09/09/20 Status: Orderedlevothyroxine 75 mcg (0.075 mg) oral tablet 1 tablet = 75 mcg, By Mouth, Daily, # 90 tablet, 3 Refills, Maintenance, 10/02/20 13:30:00 EST, Tablet, [facility]/pharmacy #207, Dose changes from 88mcg to 75mcg 10/02/20, 157.48, cm, 08/09/20 13:26:00 EST, Height, 57.73, kg, 07/19/20 15:56:00 EDT, Dry Weight Start Date: 10/02/20 Status: Orderedlidocaine 5% topical film 1 patch, Topically, Daily, PRN Pain , Mild, remove after 12 hours, # 30 patch, 5 Refills, Maintenance, 05/02/20 9:17:00 EDT, Film, [facility]/pharmacy #207, 1 patch Topically Daily,PRN:Pain , Mild,Instr:remove after 12 hours, 157.48, cm, 07/12/19 10:08:00 E... Start Date: 05/02/20 Status: Orderedlisinopril 5 mg oral tablet 5 mg, 1, tablet, By Mouth, Daily, to protect kidneys, # 90 tablet, Refills 3, Tot. Refills 3, Maintenance, 05/02/20 9:22:00 EDT, Route to Pharmacy Electronically, [facility]/pharmacy #[id number], 157.48, cm, 07/12/19 10:08:00 EDT, Height Start Date: 05/02/20 Status: OrderedmetFORMIN 500 mg oral tablet 1 tablet = 500 mg, By Mouth, 2 times a day, # 60 tablet, 5 Refills, Maintenance, 09/18/20 14:17:00 EST, Tablet, [facility]/pharmacy #207, dose change 08/09/20, 157.48, cm, 08/09/20 13:26:00 EST, Height, 57.73, kg, 07/19/20 15:56:00 EDT, Dry Weight Start Date: 09/18/20 Status: OrderedMiraLax oral powder for reconstitution = 17 Gm, By Mouth, Daily, dissolve in water before taking, # 527 Gm, 1 Refills, Maintenance, 01/11/20 8:59:00 EDT, REC Powder, [facility]/pharmacy #[id number], 17 Gm By Mouth Daily,Instr:dissolve in water before taking, 157.48, cm, 07/12/19 10:08:00 EDT, Height Start Date: 01/11/20 Status: Orderedomeprazole 20 mg oral enteric coated capsule 1 capsule = 20 mg, By Mouth, Daily, # 90 capsule, 1 Refills, Maintenance, 01/08/21 14:58:00 EDT, EC Capsule, [facility]/pharmacy #[id number], 157.48, cm, 08/09/20 13:26:00 EST, Height, 57.73, kg, 07/19/20 15:56:00 EDT, Dry Weight Start Date: 01/08/21 Status: OrderedPen [place], 30 G x 8 mm BD Ultra [...] Maintenance,01/11/20 8:57:00 EDT, Route to Pharmacy Electronically, [facility]/pharmacy #[id number], 157.48, cm, 07/12/19 10:08:00 EDT, [...] 5 Refills, Maintenance, 08/09/20 13:59:00 EST, Solution, [facility]/pharmacy #[id number], Partial fill upon patient request, 157.48, cm, 08/09/20 13:26:00 EST, Height, 57.73, kg, 07/19/20 15:56:00 EDT... Start Date: 08/09/20 Status: OrderedVentolin HFA 108 mcg/inh inhalation aerosol with adapter 1 puffs, Inhalation, 4 times a day, PRN for wheezing, PLEASE DISPENSE VENTOLIN, NOT PROAIR, CLIENT DOES NOT TOLERATE PRO AIR, # 18 Gm, 11 Refills, Maintenance, 01/11/20 8:57:00 EDT, Aerosol, [facility]/pharmacy #[id number], 157.48, cm, 07/12/19 10:08:00 EDT, Height [...] Snoring symptom(Confirmed)7 2011 Active 1per -2009 pulm [id number]/p Right ear surg 12/20103h/o hearing loss, rt side4 chronic, Rt, seen by ENT5s/p forcepts [id number] on 2010 [id number] to severe on 2011 sleep study Social History Social History Type Response Smoking Status Light tobacco smoker entered on: 11/23/13 Sex
--- OUTSIDE RECORDS SUMMARY | 2022-06-29 00:02 | XMS_ITS | Continuity of Care Document ---
:1960 Author Organization [facility] Address [address] [place] [address]- Care Team Providers Name Role Phone Cam BAÑUELOS, Aarti Arndt Primary Care Physician Encounter [facility] [place] [place] Date(s): 12/23/20 - 01/22/[address] [facility] [address] [address]- Attending Physician: Aimee Head Admitting Physician: Aimee [...] (Td)7 12/19/09 Given 1Result Comment: [06/08/2013] Flulaval [id number]. VIS in Tajik [id number] Note: VIS [id number] Note: VIS GIVEN VIS DATE 04/14/1145rfnbuml6Eycqu Note: VIS GIVEN 04/29/10 [id number] Note: vis [id number] Note: vis 04/287Admin Note: vis 03/25 Medications albuterol 0.083% inhalation solution 3 mL = 2.5 mg, Inhalation, 2 times a day, PRN Wheezing/Shortness of Breath, # 180 each, 3 Refills, Maintenance, 01/11/20 8:57:00 EDT, Inhalation Solution, [facility]/pharmacy #207, 157.48, cm, 07/12/19 10:08:00 EDT, Height Start Date: 01/11/20 Stop Date: 01/05/21 Status: OrderedArtificial Tears preserved solution 1 drops, Eyes, Both, 2 times a day, PRN for dry eyes, # 30 mL, 1 Refills, Maintenance, 10/02/20 13:31:00 EST, Solution, [facility]/pharmacy #207, Partial fill upon patient request if the prescription is for a schedule II opioid drug., 1 drops Eyes, Both 2 t... Start Date: 10/02/20 Status: Orderedcapsaicin 0.025% topical cream 1 application, Topically, 2 times a day, avoid contact with face and eyes, # 45 Gm, 5 Refills, Maintenance, 01/11/20 8:57:00 EDT, Cream, [facility]/pharmacy #207, instructions in Tajik, 1 application Topically 2 times a day,Instr:avoid contact with face a... Start Date: 01/11/20 Status: OrderedClaritin 10 mg oral tablet 10 mg, 1, tablet, By Mouth, Daily, Label in Tajik, # 90 tablet, Refills 3, Tot. Refills 3, Maintenance, 01/11/20 8:58:00 EDT, Route to Pharmacy Electronically, [facility]/pharmacy #207, 157.48, cm, 07/12/19 10:08:00 EDT, Height Start Date: 01/11/20 Stop Date: 01/05/21 Status: Ordereddocusate-senna 50 mg-187 mg oral tablet 2 tablet, By Mouth, Daily at bedtime, PRN Constipation, # 60 tablet, 11 Refills, Maintenance, 05/30/20 11:37:00 EDT, Tablet, [facility]/pharmacy #[id number], 2 tablet By Mouth Daily at bedtime,PRN:Constipation, 157.48, cm, 05/30/20 11:02:00 EDT, Height Start Date: 05/30/20 Status: OrderedFLUoxetine 20 mg oral capsule 20 mg, 1, capsule, By Mouth, Daily, # 90 capsule, Refills 3, Tot. Refills 3, Maintenance, 01/11/20 8:57:00 EDT, Route to Pharmacy Electronically, [facility]/pharmacy #[id number], 157.48, cm, 07/12/19 10:08:00 [...] 2 Refills, Maintenance, 05/02/20 9:12:00 EDT, Tablet, [facility]/pharmacy #[id number], note increased dose, 157.48, [...] 11 Refills, Maintenance, 09/09/20 17:43:00 EST, Solution, [facility]/pharmacy #[id number], Tajik label please, 157.48, cm, 08/09/20 13:26:00 EST, Height, 57.73,kg, 07/19/20 15:56:00 EDT, Dry Weight Start Date: 09/09/20 Status: Orderedlevothyroxine 75 mcg (0.075 mg) oral tablet 1 tablet = 75 mcg, By Mouth, Daily, # 90 tablet, 3 Refills, Maintenance, 10/02/20 13:30:00 EST, Tablet, [facility]/pharmacy #[id number], Dose changes from 88mcg to 75mcg 10/02/20, 157.48, cm, 08/09/20 13:26:00 EST, Height, 57.73, kg, 07/19/20 15:56:00 EDT, Dry Weight Start Date: 10/02/20 Status: Orderedlidocaine 5% topical film 1 patch, Topically, Daily, PRN Pain , Mild, remove after 12 hours, # 30 patch, 5 Refills, Maintenance, 05/02/20 9:17:00 EDT, Film, [facility]/pharmacy #[id number], 1 patch Topically Daily,PRN:Pain , Mild,Instr:remove after 12 hours, 157.48, cm, 07/12/19 10:08:00 E... Start Date: 05/02/20 Status: Orderedlisinopril 5 mg oral tablet 5 mg, 1, tablet, By Mouth, Daily, to protect kidneys, # 90 tablet, Refills 3, Tot. Refills 3, Maintenance, 05/02/20 9:22:00 EDT, [facility] 157.48, cm, 07/12/19 10:08:00 EDT, Height Start Date: 05/02/20 Status: OrderedmetFORMIN 500 mg oral tablet 1 tablet = 500 mg, By Mouth, 2 times a day, # 60 tablet, 5 Refills, Maintenance, 09/18/20 14:17:00 EST, Tablet, [facility]/pharmacy #207, dose change 08/09/20, 157.48, cm, 08/09/20 13:26:00 EST, Height, 57.73, kg, 07/19/20 15:56:00 EDT, Dry Weight Start Date: 09/18/20 Status: OrderedMiraLax oral powder for reconstitution = 17 Gm, By Mouth, Daily, dissolve in water before taking, # 527 Gm, 1 Refills, Maintenance, 01/11/20 8:59:00 EDT, REC Powder, [facility]/pharmacy #207, 17 Gm By Mouth Daily,Instr:dissolve in water before taking, 157.48, cm, 07/12/19 10:08:00 EDT, Height Start Date: 01/11/20 Status: Orderedomeprazole 20 mg oral enteric coated capsule 1 capsule = 20 mg, By Mouth, Daily, # 90 capsule, 1 Refills, Maintenance, 01/08/21 14:58:00 EDT, EC Capsule, [facility]/pharmacy #207, 157.48, cm, 08/09/20 13:26:00 EST, Height, 57.73, kg, 07/19/20 15:56:00 EDT, Dry Weight Start Date: 01/08/21 Status: OrderedPen [place], 30 G x 8 mm BD Ultra [...] Maintenance,01/11/20 8:57:00 EDT, Route to Pharmacy Electronically, [facility]/pharmacy #207, 157.48, cm, 07/12/19 10:08:00 EDT, Height Start Date: 01/11/20 Status: OrderedsitaGLIPtin 100 mg oral tablet 1 tablet = 100 mg, By Mouth, Daily, # 30 tablet, 11 Refills, Maintenance, 01/11/20 8:57:00 EDT, Tablet, [facility]/pharmacy #[id number], 157.48, cm, 07/12/19 10:08:00 EDT, Height Start Date: 01/11/20 Status: OrderedTrulicity Pen 0.75 mg/0.5 mL subcutaneous solution 0.5 mL = 0.75 mg, Subcutaneous Injection, Every week, # 2.5 mL, 5 Refills, Maintenance, 08/09/20 13:59:00 EST, Solution, [facility]/pharmacy #207, Partial fill upon patient request, 157.48, cm, 08/09/20 13:26:00 EST, Height, 57.73, kg, 07/19/20 15:56:00 EDT... Start Date: 08/09/20 Status: OrderedVentolin HFA 108 mcg/inh inhalation aerosol with adapter 1 puffs, Inhalation, 4 times a day, PRN for wheezing, PLEASE DISPENSE VENTOLIN, NOT PROAIR, CLIENT DOES NOT TOLERATE PRO AIR, # 18 Gm, 11 Refills, Maintenance, 01/11/20 8:57:00 EDT, Aerosol, [facility]/pharmacy #[id number], 157.48, cm, 07/12/19 10:08:00 [...] Snoring symptom(Confirmed)7 2011 Active 1per -2009 pulm [id number]/p Right ear surg 12/20103h/o hearing loss, rt side4 chronic, Rt, seen by ENT5s/p forcepts [id number] on 2010 [id number] to severe on 2011 sleep study Social History Social History Type Response Smoking Status Light tobacco smoker entered on: 11/23/13 Sex
--- OUTSIDE RECORDS SUMMARY | 2022-06-29 00:02 | XMS_ITS | Continuity of Care Document ---
:1960 Author Organization [facility] Address [address] [place] [address]- Care Team Providers Name Role Phone Cam BAÑUELOS, Aarti Arndt Primary Care Physician Encounter [facility] Date(s): 06/23/21 - 07/23/21 [facility] [address] [place] [id number]- Allergies, Adverse Reactions, Alerts Substance Reaction Severity Status doxycycline unknown Active penicillins hives Persistent Moderate Active thiazolidinediones eczema Active traMADOL1 [D]Nausea Active Stomach ache [D]Headache aspirin GI Upset Active sulfonylureas rash Active 1see visit note Immunizations Given and Recorded Vaccine Date Status Refusal Reason influenza virus vaccine, inactivated 07/17/21 Given influenza virus vaccine, inactivated 06/27/20 Given influenza virus vaccine, inactivated 08/09/18 Given influenza virus vaccine, inactivated 07/12/17 Given influenza virus vaccine, inactivated 09/22/16 Given influenza virus vaccine, inactivated 07/10/14 Given influenza virus vaccine, inactivated1 06/08/13 Given influenza virus vaccine, inactivated2 07/06/12 Given influenza virus vaccine, inactivated3 07/29/11 Given influenza virus vaccine, inactivated4 07/02/10 Given SARS-CoV-2 (COVID-19) mRNA BNT-162b2 vac 11/25/20 Given SARS-CoV-2 (COVID-19) mRNA BNT-162b2 vac 11/04/20 Given Zoster Vaccine Live 12/10/14 Given pneumococcal 23-valent vaccine5 02/21/10 Given Influenza Vaccine (oldterm)6 12/19/09 Given tetanus-diphtheria toxoids (Td)7 12/19/09 Given 1Result Comment: [06/08/2013] Flulaval [id number]. VIS in Cambodian [id number] Note: VIS 7/59148Yqlbn Note: VIS GIVEN VIS DATE 04/14/1184zqskysy5Rkurv Note: VIS GIVEN 04/29/10 [id number] Note: vis [id number] Note: vis 04/287Admin Note: vis 03/25 Medications albuterol 0.083% inhalation solution 3 mL = 2.5 mg, Inhalation, 2 times a day, PRN Wheezing/Shortness of Breath, # 180 each, 3 Refills, Maintenance, 04/25/21 10:01:00 EDT, Inhalation Solution, [facility]/pharmacy #[id number], 157.48, cm, 03/06/21 9:17:00 EDT, Height, [...] 2 Refills, Maintenance, 06/09/21 11:18:00 EDT, Solution, [facility]/pharmacy #[id number], Partial fill upon patient request if the prescription is for a schedule II opioid drug., 1 drops Eyes, Both 2 t... Start Date: 06/09/21 Status: Orderedcapsaicin 0.025% topical cream 1 application, Topically, 2 times a day, avoid contact with face and eyes, # 45 Gm, 5 Refills, Maintenance, 04/25/21 10:01:00 EDT, Cream, [facility]/pharmacy #[id number], instructions in Cambodian, 1 application Topically 2 times a day,Instr:avoid contact with face... Start Date: 04/25/21 Status: OrderedClaritin 10 mg oral tablet 10 mg, 1, tablet, By Mouth, Daily, Label in Cambodian, # 90 tablet, Refills 3, Tot. Refills 3, Maintenance, 04/25/21 10:01:00 EDT, Route to Pharmacy Electronically, [facility]/pharmacy #[id number], 157.48, cm, 03/06/21 9:17:00 EDT, Height, 57.73, kg, 07/19/20 15:56:... Start Date: 04/25/21 Stop Date: 04/20/22 Status: Ordereddocusate-senna 50 mg-187 mg oral tablet 2 tablet, By Mouth, Daily at bedtime, PRN Constipation, # 60 tablet, 11 Refills, Maintenance, 04/25/21 10:03:00 EDT, Tablet, [facility]/pharmacy #[id number], 2 tablet By Mouth Daily at bedtime,PRN:Constipation, 157.48, cm, 03/06/21 9:17:00 EDT, Height, 57.73, kg,... Start Date: 04/25/21 Status: OrderedFLUoxetine 20 mg oral capsule 20 mg, 1, capsule, By Mouth, Daily, # 90 capsule, Refills 3, Tot. Refills 3, Maintenance, 04/25/21 10:01:00 EDT, Route to Pharmacy Electronically, [facility]/pharmacy #[id number], 157.48, cm, 03/06/21 9:17:00 EDT, Height, [...] Refills, Maintenance, 05/02/20 9:12:00 EDT, Tablet, [facility]/pharmacy #[id number], note increased dose, 157.48, cm, 07/12/19 10:08:00 EDT, Height Start Date: 05/02/20 Status: Orderedhydrocortisone 2.5% topical cream 1 application, Topically, 3 times a day, apply to rash on neck. instr japanese, # 20 Gm, 0 Refills, Maintenance, 04/28/21 19:30:00 EDT, Cream, [facility]/pharmacy #[id number], Partial fill upon patient request if the prescription is for a schedule II opioid drug.,... Start Date: 04/28/21 Status: OrderedLantus Solostar Pen 100 units/mL subcutaneous solution = 18 units, Subcutaneous Injection, Daily, # 12 mL, 11 Refills, Maintenance, 06/17/21 12:13:00 EDT, Solution, [facility]/pharmacy #[id number], Cambodian label please. Dose increase to 18u 06/17/21, 157.48, cm, 06/09/21 10:45:00 EDT, Height, 57.73, kg, 07/19/20 15:56:... Start Date: 06/17/21 Status: Orderedlevothyroxine 75 mcg (0.075 mg) oral tablet 1 tablet = 75 mcg, By Mouth, Daily, # 90 tablet, 3 Refills, Maintenance, 10/02/20 13:30:00 EST, Tablet, [facility]/pharmacy #[id number], Dose changes from 88mcg to 75mcg 10/02/20, 157.48, cm, 08/09/20 13:26:00 EST, Height, 57.73, kg, 07/19/20 15:56:00 EDT, Dry Weight Start Date: 10/02/20 Status: Orderedlisinopril 5 mg oral tablet 5 mg, 1, tablet, By Mouth, Daily, to protect kidneys, # 90 tablet, Refills 3, Tot. Refills 3, Maintenance, 07/18/21 9:44:00 EDT, Route to Pharmacy Electronically, [facility]/pharmacy #[id number], 157.48, cm, 06/24/21 9:15:00 EDT, Height, 57.73, kg, 07/19/20 15:56:... Start Date: 07/18/21 Status: OrderedmetFORMIN 500 mg oral tablet 1 tablet = 500 mg, By Mouth, 2 times a day, # 60 tablet, 5 Refills, Maintenance, 04/25/21 10:02:00 EDT, Tablet, [facility]/pharmacy #[id number], dose change 08/09/20, 157.48, cm, 03/06/21 9:17:00 EDT, Height, 57.73, kg, 07/19/20 15:56:00 EDT, Dry Weight Start Date: 04/25/21 Status: Orderedmultivitamin Multiple Vitamins oral capsule 1 capsule, By Mouth, Daily, # 90 capsule, 3 Refills, Maintenance, 03/06/21 10:22:00 EDT, Capsule, [facility]/pharmacy #[id number], Partial fill upon patient request if the prescription is for a schedule II opioid drug., 1 capsule By Mouth Daily, 157.48, cm, ... Start Date: 03/06/21 Status: Orderedmupirocin 2% topical ointment 1 application, Topically, 2 times a day, apply to vulvar bump only. instr japanese, # 15 Gm, 0 Refills, Maintenance, 02/25/21 16:46:00 EDT, Ointment, [facility]/pharmacy #[id number], Partial fill upon patient request if the prescription is for a schedule II opioid... Start Date: 02/25/21 Stop Date: 03/11/21 Status: Orderedomeprazole 20 mg oral enteric coated capsule 1 capsule = 20 mg, By Mouth, Daily, use as little as needed to control symptoms, # 90 capsule, 1 Refills, Maintenance, 07/18/21 9:44:00 EDT, EC Capsule, [facility]/pharmacy #207, 157.48, cm, 06/24/21 9:15:00EDT, Height, 57.73, kg, 07/19/20 15:56:00 EDT, . Start Date: 07/18/21 Status: OrderedPen [place], 30 G x 8 mm BD Ultra [...] Maintenance,04/25/21 10:01:00 EDT, Route to Pharmacy Electronically, [facility]/pharmacy #[id number], 157.48, cm, 03/06/21 9:17:00 EDT, Height, 57.73, kg, 07/19/20 15:56:00 ED... Start Date: 04/25/21 Status: OrderedsitaGLIPtin 100 mg oral tablet 1 tablet = 100 mg, By Mouth, Daily, # 30 tablet, 11 Refills, Maintenance, 04/25/21 10:01:00 EDT, Tablet, [facility]/pharmacy #207, 157.48, cm, 03/06/21 9:17:00 EDT, Height, 57.73, kg, 07/19/20 15:56:00 EDT, Dry Weight Start Date: 04/25/21 Status: OrderedVentolin HFA 108 mcg/inh inhalation aerosol with adapter 1 puffs, Inhalation, 4 times a day, PRN for wheezing, PLEASE DISPENSE VENTOLIN, NOT PROAIR, CLIENT DOES NOT TOLERATE PRO AIR, # 18 Gm, 11 Refills, Maintenance, 04/25/21 10:01:00 EDT, Aerosol, [facility], 157.48, cm, 03/06/21 9:17:00 KARINATYeni Start Date: 04/25/21 Status: Ordered Problem List [...] Active Snoring symptom(Confirmed)7 2011 Active 1per pulm gycmq2U/p Right ear surg 12/20103h/o hearing loss, rt side4 chronic, Rt, seen by ENT5s/p forcepts [id number] on 2010 [id number] to severe on 2011 sleep study Social History Social History Type Response Smoking Status Light tobacco smoker entered on: 11/23/13 Sex
--- OUTSIDE RECORDS SUMMARY | 2022-06-29 00:02 | XMS_ITS | Continuity of Care Document ---
:1960 Author Organization [facility] Address [address] [place] [address]- Care Team Providers Name Role Phone Cam BAÑUELOS, Aarti Arndt Primary Care Physician [facility] Date[facility]): [facility]20 - 02/28/20 [facility] [address] [place] [address]- [facility] Attending Physician: Aimee Head Admitting Physician: Aimee [...] (Td)7 12/19/09 Given 1Result Comment: [06/08/2013] Flulaval [id number]. VIS in Ecuadorean [id number] Note: VIS [id number] Note: VIS GIVEN VIS DATE 04/14/1100vctoydk8Mjymr Note: VIS GIVEN 04/29/10 [id number] Note: vis [id number] Note: vis 04/287Admin Note: vis 03/25 Medications albuterol 0.083% inhalation solution 3 mL = 2.5 mg, Inhalation, 2 times a day, PRN Wheezing/Shortness of Breath, # 180 each, 3 Refills, Maintenance, 01/11/20 8:57:00 EDT, Inhalation Solution, [facility]/pharmacy #[id number], 157.48, cm, 07/12/19 10:08:00 EDT, Height Start Date: 01/11/20 Stop Date: 01/05/21 Status: Orderedbetamethasone topical dipropionate 0.05% cream See Instructions, # 45 Gm, Refills 2 Tot. Refills 2, APLIQUE AL AREA AFECTADA DOS VECES AL PRINCE, [facility]/pharmacy #207 Start Date: 06/25/19 Status: Orderedcapsaicin 0.025% topical cream 1 application, Topically, 2 times a day, avoid contact with face and eyes, # 45 Gm, 5 Refills, Maintenance, 01/11/20 8:57:00 EDT, Cream, [facility]/pharmacy #207, instructions in Ecuadorean, 1 application Topically 2 times a day,Instr:avoid contact with face a... Start Date: 01/11/20 Status: OrderedClaritin 10 mg oral tablet 10 mg, 1, tablet, By Mouth, Daily, Label in Ecuadorean, # 90 tablet, Refills 3, Tot. Refills 3, Maintenance, 01/11/20 8:58:00 EDT, Route to Pharmacy Electronically, [facility]/pharmacy #207, 157.48, cm, 07/12/19 10:08:00 EDT, [...] 01/11/20 8:57:00 EDT, Route to Pharmacy Electronically, [facility]/pharmacy #[id number], 157.48, cm, 07/12/19 10:08:00 EDT, Height Start Date: 01/11/20 Status: OrderedFreestyle Lite Monitor See Instructions, # 1 each, Maintenance, Dx: dm2, 1-2 times daily checks, 07/12/19 11:21:40 EDT, Compound Start Date: 07/12/19 Status: Orderedgabapentin 300 mg oral capsule 300 mg, 1, capsule, By Mouth, Daily, # 30 capsule, Refills 5, Tot. Refills 5, Soft Stop, 01/11/20 8:59:00 EDT, Route to Pharmacy Electronically, [facility]/pharmacy #[id number], 157.48, cm, 07/12/19 10:08:00 EDT, Height Start Date: 01/11/20 Status: Orderedlevothyroxine 0.088 mg oral tablet 1 tablet = 88 mcg, By Mouth, Daily, # 90 tablet, 3 Refills, Maintenance, 07/12/19 11:19:40 EDT, Tablet, instead of capsules Start Date: 07/12/19 Status: OrderedmetFORMIN 750 mg oral tablet, extended release 1 tablet = 750 mg, By Mouth, Daily, # 30 tablet, 11 Refills, Maintenance, 01/11/20 8:57:00 EDT, ER Tablet, [facility]/pharmacy #[id number], 157.48, cm, 07/12/19 10:08:00 EDT, Height Start Date: 01/11/20 Status: OrderedMiraLax oral powder for reconstitution = 17 Gm, By Mouth, Daily, dissolve in water before taking, # 527 Gm, 1 Refills, Maintenance, 01/11/20 8:59:00 EDT, REC Powder, [facility]/pharmacy #207, 17 Gm By Mouth Daily,Instr:dissolve in water before taking, 157.48, cm, 07/12/19 10:08:00 EDT, Height Start Date: 01/11/20 Status: Orderedomeprazole 20 mg oral enteric coated capsule 1 capsule = 20 mg, By Mouth, Daily, # 90 capsule, 1 Refills, Maintenance, 01/11/20 9:00:00 EDT, EC Capsule, [facility]/pharmacy #[id number], 157.48, cm, 07/12/19 10:08:00 EDT, Height Start Date: 01/11/20 Status: Orderedsimvastatin 20 mg oral tablet 20 mg, 1, tablet, By Mouth, Daily at bedtime, # 30 tablet, Refills 11, Tot. Refills 11, Maintenance,01/11/20 8:57:00 EDT, [id number] 157.[facility], cm, 07/12/19 10:08:00 EDT, Height Start Date: 01/11/20 Status: OrderedsitaGLIPtin 100 mg oral tablet 1 tablet = 100 mg, By Mouth, Daily, # 30 tablet, 11 Refills, Maintenance, 01/11/20 8:57:00 EDT, Tablet, [facility]/pharmacy #1, 157.48, cm, 07/12/19 10:08:00 EDT, Height Start Date: 01/11/20 Status: OrderedVentolin HFA 108 mcg/inh inhalation aerosol with adapter 1 puffs, Inhalation, 4 times a day, PRN for wheezing, PLEASE DISPENSE VENTOLIN, NOT PROAIR, CLIENT DOES NOT TOLERATE PRO AIR, # 18 Gm, 11 Refills, Maintenance, 01/11/20 8:57:00 EDT, Aerosol, [facility]/pharmacy #1, 157.48, cm, 07/12/19 10:08:00 EDT, [...] Snoring symptom(Confirmed)7 2011 Active 1per -2009 pulm hphig6O/p Right ear surg 12/20103h/o hearing loss, rt side4 chronic, Rt, seen by ENT5s/p forcepts [id number] on 2010 [id number] to severe on 2011 sleep study Procedures Procedure Date Related Diagnosis Body Site Status COLONOSCOPY1 12/04/09 Completed 1NO COMPLICATIONS. REPEAT IN 10 YEARS. Social History Social History Type Response Smoking Status Light tobacco smoker entered on: 11/23/13 Sex
--- OUTSIDE RECORDS SUMMARY | 2022-06-29 00:02 | XMS_ITS | Continuity of Care Document ---
:1960 Author Organization [facility] Address [address] [place] [address]- Care Team Providers Name Role Phone Cam BAÑUELOS, Aarti Arndt Primary Care Physician [facility] Date[facility]): 08[facility]27[facility]21 - 09/26/21 [facility] [address] [place] [phone]- Attending Physician: Aimee Head Admitting Physician: AdmAimee [...] (Td)7 12/19/09 Given 1Result Comment: [06/08/2013] Flulaval [id number]. VIS in Bolivian [id number] Note: VIS [id number] Note: VIS GIVEN VIS DATE 04/14/1135ledwzyf5Icyvi Note: VIS GIVEN 04/29/10 [id number] Note: vis [id number] Note: vis dmin Note: vis 03/25 Medications [...] 04/25/21 10:01:00 EDT, [facility] 157.[facility], cm, 03/06/21 9:17:00 EDT, Height, 57.73, kg, 07/19/20 15:56:... Start Date: 04/25/21 Stop Date: 04/20/22 Status: Ordereddocusate-senna 50 mg-187 mg oral tablet 2 tablet, By Mouth, Daily at bedtime, PRN Constipation, # 60 tablet, 11 Refills, Maintenance, 04/25/21 10:03:00 EDT, [facility] 2 tablet By Mouth Daily at bedtime,PRN:Constipation, 157.48, cm, 03/06/21 9:17:00 EDT, Height, 57.73, kg,... Start Date: 04/25/21 Status: OrderedFLUoxetine 20 mg oral capsule 20 mg, 1, capsule, By Mouth, Daily, # 90 capsule, Refills 3, Tot. Refills 3, Maintenance, 04/25/21 10:01:00 EDT, Route to Pharmacy Electronically, [facility]/pharmacy #207, 157.48, cm, 03/06/21 9:17:00 EDT, [...] 2 Refills, Maintenance, 05/02/20 9:12:00 EDT, Tablet, [id number], note increased dose, 157.48, cm, 07/12/19 10:08:00 EDT, Height Start Date: 05/02/20 Status: Orderedhydrocortisone 2.5% topical cream 1 application, Topically, 3 times a day, apply to rash on neck. instr indonesian, # 20 Gm, 0 Refills, Maintenance, 04/28/21 19:30:00 EDT, Cream, [id number], Partial fill upon patient request if the prescription is for a schedule II opioid drug.,... Start Date: 04/28/21 Status: OrderedLantus Solostar Pen 100 units/mL subcutaneous solution = 18 units, Subcutaneous Injection, Daily, # 12 mL, 11 Refills, Maintenance, 06/17/21 12:13:00 EDT, Solution, [id number], Bolivian label please. Dose increase to 18u 06/17/21, 157.48, cm, 06/09/21 10:45:00 EDT, Height, 57.73, kg, 07/19/20 15:56:... Start Date: 06/17/21 Status: Orderedlevothyroxine 75 mcg (0.075 mg) oral tablet 1 tablet = 75 mcg, By Mouth, Daily, # 90 tablet, 3 Refills, Maintenance, 10/02/20 13:30:00 EST, Tablet, [facility]/pharmacy #[id number], Dose changes from 88mcg to 75mcg 10/02/20, 157.48, cm, 08/09/20 13:26:00 EST, Height, 57.73, kg, 07/19/20 15:56:00 EDT, Dry Weight Start Date: 10/02/20 Status: Orderedlisinopril 5 mg oral tablet 5 mg, 1, tablet, By Mouth, Daily, to protect kidneys, # 90 tablet, Refills 3, Tot. Refills 3, Maintenance, 07/18/21 9:44:00 EDT, Route to Pharmacy Electronically, [facility]/pharmacy #[id number], 157.48, cm, 06/24/21 9:15:00 EDT, Height, 57.73, kg, 07/19/20 15:56:... Start Date: 07/18/21 Status: OrderedmetFORMIN 500 mg oral tablet 1 tablet = 500 mg, By Mouth, 2 times a day, # 60 tablet, 5 Refills, Maintenance, 04/25/21 10:02:00 EDT, Tablet, [facility]/pharmacy #[id number], dose change 08/09/20, 157.48, cm, 03/06/21 9:17:00 EDT, Height, 57.73, kg, 07/19/20 15:56:00 EDT, Dry Weight Start Date: 04/25/21 Status: Orderedmultivitamin Multiple Vitamins oral capsule 1 capsule, By Mouth, Daily, # 90 capsule, 3 Refills, Maintenance, 03/06/21 10:22:00 EDT, Capsule, [facility]/pharmacy #[id number], Partial fill upon patient request if the prescription is for a schedule II opioid drug., 1 capsule By Mouth Daily, 157.48, cm, ... Start Date: 03/06/21 Status: Orderedmupirocin 2% topical ointment 1 application, Topically, 2 times a day, apply to vulvar bump only. instr indonesian, # 15 Gm, 0 Refills, Maintenance, 02/25/21 16:46:00 EDT, Ointment, [facility]/pharmacy #[id number], Partial fill upon patient request if the prescription is for a schedule II opioid... Start Date: 02/25/21 Stop Date: 03/11/21 Status: Orderedomeprazole 20 mg oral enteric coated capsule 1 capsule = 20 mg, By Mouth, Daily, use as little as needed to control symptoms, # 90 capsule, 1 Refills, Maintenance, 07/18/21 9:44:00 EDT, EC Capsule, [facility]/pharmacy #[id number], 157.48, cm, 06/24/21 9:15:00EDT, Height, 57.73, kg, 07/19/20 15:56:00 EDT, . Start Date: 07/18/21 Status: OrderedPen [place], 30 G x 8 mm BD Ultra [...] Maintenance,04/25/21 10:01:00 EDT, Route to Pharmacy Electronically, [facility]/pharmacy #[id number], 157.48, cm, 03/06/21 9:17:00 EDT, Height, 57.73, kg, 07/19/20 15:56:00 ED... Start Date: 04/25/21 Status: OrderedsitaGLIPtin 100 mg oral tablet 1 tablet = 100 mg, By Mouth, Daily, # 30 tablet, 11 Refills, Maintenance, 04/25/21 10:01:00 EDT, Tablet, [facility]/pharmacy #207, 157.48, cm, 03/06/21 9:17:00 EDT, [...] Active Snoring symptom(Confirmed)7 2011 Active 1per pulm qzdmf2W/p Right ear surg 12/20103h/o hearing loss, rt side4 chronic, Rt, seen by ENT5s/p forcepts zxkqkwjw3zxbuvpdv on 2010 [id number] to severe on 2011 sleep study Procedures Procedure Date Related Diagnosis Body Site Status COLONOSCOPY1 12/04/09 Completed 1NO COMPLICATIONS. REPEAT IN 10 YEARS. Social History Social History Type Response Smoking Status Light tobacco smoker entered on: 11/23/13 Sex
--- OUTSIDE RECORDS SUMMARY | 2022-06-29 00:02 | XMS_ITS | Continuity of Care Document ---
:[address] [facility] Address [address] [place] [phone]- Care Team Providers Name Role Phone Cam BAÑUELOS, Aarti Arndt Primary Care Physician [facility] 07[facility] - 08/16/21 [facility] [address] [place] [phone]- Attending Physician: Aimee Head Admitting Physician: Aimee [...] (Td)7 12/19/09 Given 1Result Comment: [06/08/2013] Flulaval [id number]. VIS in Nicaraguan [id number] Note: VIS [id number] Note: VIS GIVEN VIS DATE 04/14/1112fwgjjho2Iygeh Note: VIS GIVEN 04/29/10 [id number] Note: vis [id number] Note: vis 04/287Admin Note: vis 03/25 Medications [...] 10:01:00 EDT, Cream, [id number], instructions in Nicaraguan, 1 application Topically 2 times a day,Instr:avoid contact with face... Start Date: 04/25/21 Status: OrderedClaritin 10 mg oral tablet 10 mg, 1, tablet, By Mouth, Daily, Label in Nicaraguan, # 90 tablet, Refills 3, Tot. Refills 3, Maintenance, 04/25/21 10:01:00 EDT, Route to Pharmacy Electronically, [facility]/pharmacy #[id number], 157.48, cm, 03/06/21 9:17:00 EDT, Height, 57.73, kg, 07/19/20 15:56:... Start Date: 04/25/21 Stop Date: 04/20/22 Status: Ordereddocusate-senna 50 mg-187 mg oral tablet 2 tablet, By Mouth, Daily at bedtime, PRN Constipation, # 60 tablet, 11 Refills, Maintenance, 04/25/21 10:03:00 EDT, Tablet, [facility]/pharmacy #[id number], 2 tablet By Mouth Daily at bedtime,PRN:Constipation, 157.48, cm, 03/06/21 9:17:00 EDT, Height, 57.73, kg,... Start Date: 04/25/21 Status: OrderedFLUoxetine 20 mg oral capsule 20 mg, 1, capsule, By Mouth, Daily, # 90 capsule, Refills 3, Tot. Refills 3, Maintenance, 04/25/21 10:01:00 EDT, Route to Pharmacy Electronically, [facility]/pharmacy #[id number], 157.48, cm, 03/06/21 9:17:00 EDT, [...] 2 Refills, Maintenance, 05/02/20 9:12:00 EDT, Tablet, [facility]/pharmacy #2071, note increased dose, 157.48, cm, 07/12/19 10:08:00 EDT, Height Start Date: 05/02/20 Status: Orderedhydrocortisone 2.5% topical cream 1 application, Topically, 3 times a day, apply to rash on neck. instr estonian, # 20 Gm, 0 Refills, Maintenance, 04/28/21 19:30:00 EDT, Cream, [id number], Partial fill upon patient request if the prescription is for a schedule II opioid drug.,... Start Date: 04/28/21 Status: OrderedLantus Solostar Pen 100 units/mL subcutaneous solution = 18 units, Subcutaneous Injection, Daily, # 12 mL, 11 Refills, Maintenance, 06/17/21 12:13:00 EDT, Solution, [id number], Nicaraguan label please. Dose increase to 18u 06/17/21, 157.48, cm, 06/09/21 10:45:00 EDT, Height, 57.73, kg, 07/19/20 15:56:... Start Date: 06/17/21 Status: Orderedlevothyroxine 75 mcg (0.075 mg) oral tablet 1 tablet = 75 mcg, By Mouth, Daily, # 90 tablet, 3 Refills, Maintenance, 10/02/20 13:30:00 EST, Tablet, [facility]/pharmacy #[id number], Dose changes from 88mcg to 75mcg 10/02/20, 157.48, cm, 08/09/20 13:26:00 EST, Height, 57.73, kg, 07/19/20 15:56:00 EDT, Dry Weight Start Date: 10/02/20 Status: Orderedlisinopril 5 mg oral tablet 5 mg, 1, tablet, By Mouth, Daily, to protect kidneys, # 90 tablet, Refills 3, Tot. Refills 3, Maintenance, 07/18/21 9:44:00 EDT, Route to Pharmacy Electronically, [facility]/pharmacy #[id number], 157.48, cm, 06/24/21 9:15:00 EDT, Height, 57.73, kg, 07/19/20 15:56:... Start Date: 07/18/21 Status: OrderedmetFORMIN 500 mg oral tablet 1 tablet = 500 mg, By Mouth, 2 times a day, # 60 tablet, 5 Refills, Maintenance, 04/25/21 10:02:00 EDT, Tablet, [facility]/pharmacy #[id number], dose change 08/09/20, 157.48, cm, 03/06/21 9:17:00 EDT, Height, 57.73, kg, 07/19/20 15:56:00 EDT, Dry Weight Start Date: 04/25/21 Status: Orderedmultivitamin Multiple Vitamins oral capsule 1 capsule, By Mouth, Daily, # 90 capsule, 3 Refills, Maintenance, 03/06/21 10:22:00 EDT, Capsule, [facility]/pharmacy #[id number], Partial fill upon patient request if the prescription is for a schedule II opioid drug., 1 capsule By Mouth Daily, 157.48, cm, 03/06/... Start Date: 03/06/21 Status: Orderedmupirocin 2% topical ointment 1 application, Topically, 2 times a day, apply to vulvar bump only. instr estonian, # 15 Gm, 0 Refills, Maintenance, 02/25/21 16:46:00 EDT, Ointment, [facility]/pharmacy #[id number], Partial fill upon patient request if the prescription is for a schedule II opioid... Start Date: 02/25/21 Stop Date: 03/11/21 Status: Orderedomeprazole 20 mg oral enteric coated capsule 1 capsule = 20 mg, By Mouth, Daily, use as little as needed to control symptoms, # 90 capsule, 1 Refills, Maintenance, 07/18/21 9:44:00 EDT, EC Capsule, [facility]/pharmacy #[id number], 157.48, cm, 06/24/21 9:15:00EDT, Height, 57.73, kg, 07/19/20 15:56:00 EDT, . Start Date: 07/18/21 Status: OrderedPen [place], 30 G x 8 mm BD Ultra [...] Maintenance,04/25/21 10:01:00 EDT, Route to Pharmacy Electronically, [facility]/pharmacy #[id number], 157.48, cm, 03/06/21 9:17:00 EDT, Height, 57.73, kg, 07/19/20 15:56:00 ED... Start Date: 04/25/21 Status: OrderedsitaGLIPtin 100 mg oral tablet 1 tablet = 100 mg, By Mouth, Daily, # 30 tablet, 11 Refills, Maintenance, 04/25/21 10:01:00 EDT, Tablet, [facility]/pharmacy #[id number], 157.48, cm, 03/06/21 9:17:00 EDT, [...] 11/02/11 Active Snoring symptom(Confirmed)2011 Active 1per pulm qqjiu6B/p Right ear surg 12/20103h/o hearing loss, rt side4 chronic, Rt, seen by ENT5s/p forcepts cxwqddkn4qgfryuax on 2010 FHN1mapnpsif to severe on 2011 sleep study Procedures Procedure Date Related Diagnosis Body Site Status COLONOSCOPY1 12/04/09 Completed 1NO COMPLICATIONS. REPEAT IN 10 YEARS. Social History Social History Type Response Smoking Status Light tobacco smoker entered on: 11/23/13 Sex
--- OUTSIDE RECORDS SUMMARY | 2022-06-29 00:02 | XMS_ITS | Continuity of Care Document ---
:1960 Author Organization [facility] Address [address] [place] [address]- Care Team Providers Name Role Phone Cam BAÑUELOS, Aarti Arndt Primary Care Physician [facility]19 - 12/14/19 [facility] [address] [place] [address]- [facility] Attending Physician: Gael Craven MD Admitting Physician: Gael Craven MD Allergies, Adverse Reactions, Alerts Substance Reaction [...] (Td)7 12/19/09 Given 1Result Comment: [06/08/2013] Flulaval [id number]. VIS in Togolese [id number] Note: VIS [id number] Note: VIS GIVEN VIS DATE 04/14/1156njoakky7Orxcl Note: VIS GIVEN 04/29/10 uattzqf7Hnzgv Note: vis [id number] Note: vis 04/287Admin Note: vis 03/25 Medications [...] AL AREA AFECTADA DOS VECES AL PRINCE, [facility]/pharmacy #207 Start Date: 06/25/19 Status: Orderedcapsaicin 0.025% topical cream 1 application, Topically, 2 times a day, avoid contact with face and eyes, # 45 Gm, 5 Refills, Maintenance, 01/17/19 9:05:45 EDT, Cream, instructions in Togolese, 1 application Topically 2 times a day,Instr:avoid contact with face and eyes Start Date: 01/17/19 Status: OrderedClaritin 10 mg oral tablet 10 mg, 1, tablet, By Mouth, Daily, Label in Togolese, # 90 tablet, Refills 3, Tot. Refills 3, Maintenance, 01/17/19 8:50:07 EDT, Route to Pharmacy Electronically, [id number], [facility]/pharmacy #[id number] Start Date: 01/17/19 Stop Date: 01/12/20 [...] 01/17/19 8:53:21 EDT, Route to Pharmacy Electronically, [id number], [facility]/pharmacy #1 Start Date: 01/17/19 Status: OrderedFreestyle Lancet Device [...] TO CHECK BLOOD SUGAR THREETIMES PER DAY, [facility]/pharmacy #207 Start Date: 05/11/19 Status: Orderedgabapentin 300 mg oral capsule See Instructions, # 30 capsule, Refills 5 Tot. Refills 5, TAKE 1 CAPSULE BY MOUTH DAILY AT BEDTIME, [facility]/pharmacy #207 Start Date: 05/11/19 Status: Orderedibuprofen 600 mg oral tablet 600 mg, 1, tablet, By Mouth, 3 times a day, PRN, with food or milk Label in scottish, # 90 tablet, Refills 3, Tot. Refills 3, Maintenance, as needed for pain, 03/24/19 12:01:44 EDT, Route to Pharmacy Electronically, [id number]... Start Date: 03/24/19 Status: Orderedlevothyroxine 0.088 mg [...] Maintenance,01/17/19 8:50:20 EDT, Route to Pharmacy Electronically, [id number], [facility]/pharmacy #[id number] Start Date: 01/17/19 Status: OrderedsitaGLIPtin 100 mg [...] Active Snoring symptom(Confirmed)2011 Active 1per 8-2009 pulm qaqyh6F/p Right ear surg 12/20103h/o hearing loss, rt side4 chronic, Rt, seen by ENT5s/p forcepts xpmdwwif1qmbvswoe on 2010 CMJ7oshbgeyq to severe on 2011 sleep study Social History Social History Type Response Smoking Status Light tobacco smoker entered on: 11/23/13 Sex
--- OUTSIDE RECORDS SUMMARY | 2022-06-29 00:03 | XMS_ITS | Continuity of Care Document ---
:1960 Author Organization [facility] Address [address] [place] [address]- Care Team Providers Name Role Phone Cam BAÑUELOS, Aarti Arndt Primary Care Physician [facility] Date[facility]): [facility]21 - 03/23/21 [facility] [address] [place] [phone]- Attending Physician: Gael Craven MD Admitting Physician: [...] (Td)7 12/19/09 Given 1Result Comment: [06/08/2013] Flulaval [id number]. VIS in Ukrainian [id number] Note: VIS [id number] Note: VIS GIVEN VIS DATE 04/14/1141milehxt1Xzglj Note: VIS GIVEN 04/29/10 [id number] Note: vis [id number] Note: vis 04/287Admin Note: vis 03/25 Medications albuterol 0.083% inhalation solution 3 mL = 2.5 mg, Inhalation, 2 times a day, PRN Wheezing/Shortness of Breath, # 180 each, 3 Refills, Maintenance, 01/11/20 8:57:00 EDT, Inhalation Solution, [facility]/pharmacy #[id number], 157.48, cm, 07/12/19 10:08:00 EDT, Height Start Date: 01/11/20 Stop Date: 01/05/21 Status: OrderedArtificial Tears preserved solution 1 drops, Eyes, Both, 2 times a day, PRN for dry eyes, # 30 mL, 1 Refills, Maintenance, 10/02/20 13:31:00 EST, Solution, [facility]/pharmacy #[id number], Partial fill upon patient request if the prescription is for a schedule II opioid drug., 1 drops Eyes, Both 2 t... Start Date: 10/02/20 Status: Orderedcapsaicin 0.025% topical cream 1 application, Topically, 2 times a day, avoid contact with face and eyes, # 45 Gm, 5 Refills, Maintenance, 01/11/20 8:57:00 EDT, Cream, [facility]/pharmacy #[id number], instructions in Ukrainian, 1 application Topically 2 times a day,Instr:avoid contact with face a... Start Date: 01/11/20 Status: OrderedClaritin 10 mg oral tablet 10 mg, 1, tablet, By Mouth, Daily, Label in Ukrainian, # 90 tablet, Refills 3, Tot. Refills 3, Maintenance, 01/11/20 8:58:00 EDT, Route to Pharmacy Electronically, [facility]/pharmacy #[id number], 157.48, cm, 07/12/19 10:08:00 EDT, Height Start Date: 01/11/20 Stop Date: 01/05/21 Status: Ordereddocusate-senna 50 mg-187 mg oral tablet 2 tablet, By Mouth, Daily at bedtime, PRN Constipation, # 60 tablet, 11 Refills, Maintenance, 05/30/20 11:37:00 EDT, Tablet, [facility]/pharmacy #[id number], 2 tablet By Mouth Daily at bedtime,PRN:Constipation, 157.48, cm, 05/30/20 11:02:00 EDT, Height Start Date: 05/30/20 Status: OrderedFLUoxetine 20 mg oral capsule 20 mg, 1, capsule, By Mouth, Daily, # 90 capsule, Refills 3, Tot. Refills 3, Maintenance, 01/11/20 8:57:00 EDT, Route to Pharmacy Electronically, [facility]/pharmacy #[id number], 157.48, cm, 07/12/19 [...] day, apply to rash on neck. instr syriac, # 20 Gm, 0 Refills, Maintenance, 02/25/21 16:46:00 EDT, Cream, [facility]acy #[id number], Partial fill upon patient request if the prescription is for a schedule II opioid drug.,... Start Date: 02/25/21 Status: OrderedLantus Solostar Pen 100 units/mL subcutaneous solution = 10 units, Subcutaneous Injection, Daily, # 10 mL, 11 Refills, Maintenance, 09/09/20 17:43:00 EST, Solution, [facility]/pharmacy #207, Ukrainian label please, 157.48, cm, 08/09/20 13:26:00 EST, Height, 57.73,kg, 07/19/20 15:56:00 EDT, Dry Weight Start Date: 09/09/20 Status: Orderedlevothyroxine 75 mcg (0.075 mg) oral tablet 1 tablet = 75 mcg, By Mouth, Daily, # 90 tablet, 3 Refills, Maintenance, 10/02/20 13:30:00 EST, Tablet, [facility], Dose changes from 88mcg to 75mcg [...] 05/02/20 9:22:00 EDT, Route to Pharmacy Electronically, [facility]/pharmacy #[id number], 157.48, cm, 07/12/19 10:08:00 EDT, Height Start Date: 05/02/20 Status: OrderedmetFORMIN 500 mg oral tablet 1 tablet = 500 mg, By Mouth, 2 times a day, # 60 tablet, 5 Refills, Maintenance, 09/18/20 14:17:00 EST, Tablet, [facility]/pharmacy #[id number], dose change 08/09/20, 157.48, cm, 08/09/20 13:26:00 EST, Height, 57.73, kg, 07/19/20 15:56:00 EDT, Dry Weight Start Date: 09/18/20 Status: OrderedMiraLax oral powder for reconstitution = 17 Gm, By Mouth, Daily, dissolve in water before taking, # 527 Gm, 1 Refills, Maintenance, 01/11/20 8:59:00 EDT, REC Powder, [facility]/pharmacy #[id number], 17 Gm By Mouth Daily,Instr:dissolve in water before taking, 157.48, cm, 07/12/19 10:08:00 EDT, Height Start Date: 01/11/20 Status: Orderedmultivitamin Multiple Vitamins oral capsule 1 capsule, By Mouth, Daily, # 90 capsule, 3 Refills, Maintenance, 03/06/21 10:22:00 EDT, Capsule, [facility]/pharmacy #[id number], Partial fill upon patient request if the prescription is for a schedule II opioid drug., 1 capsule By Mouth Daily, 157.48, cm, ... Start Date: 03/06/21 Status: Orderedmupirocin 2% topical ointment 1 application, Topically, 2 times a day, apply to vulvar bump only. instr syriac, # 15 Gm, 0 Refills, Maintenance, 02/25/21 16:46:00 EDT, Ointment, [facility]/pharmacy #[id number], Partial fill upon patient request if the prescription is for a schedule II opioid... Start Date: 02/25/21 Stop Date: 03/11/21 Status: Orderedomeprazole 20 mg oral enteric coated capsule 1 capsule = 20 mg, By Mouth, Daily, # 90 capsule, 1 Refills, Maintenance, 01/08/21 14:58:00 EDT, EC Capsule, [facility]/pharmacy #207, 157.48, cm, 08/09/20 13:26:00 EST, Height, 57.73, kg, 07/19/20 15:56:00 EDT, Dry Weight Start Date: 01/08/21 Status: OrderedPen [place], 30 G x 8 mm BD Ultra [...] 0 Refills, Maintenance, 02/19/21 5:10:00 EDT, Tablet, [facility]/pharmacy #207, Partial fill upon patient request if the prescription is for a schedule II opioid drug., 157.48, cm, 08/09/20 13:26:00 EST, Heigh... Start Date: 02/19/21 Stop Date: 02/22/21 Status: Orderedsimvastatin 20 mg oral tablet 20 mg, 1, tablet, By Mouth, Daily at bedtime, # 30 tablet, Refills 11, Tot. Refills 11, Maintenance,01/11/20 8:57:00 EDT, Route to Pharmacy Electronically, [facility]/pharmacy #207, 157.48, cm, 07/12/19 10:08:00 EDT, Height Start Date: 01/11/20 Status: OrderedsitaGLIPtin 100 mg oral tablet 1 tablet = 100 mg, By Mouth, Daily, # 30 tablet, 11 Refills, Maintenance, 01/11/20 8:57:00 EDT, Tablet, [facility]/pharmacy #207, 157.48, cm, 07/12/19 [...] Active Snoring symptom(Confirmed)7 2011 Active 1per pulm [id number]/p Right ear surg 12/20103h/o hearing loss, rt side4 chronic, Rt, seen by ENT5s/p forcepts [id number] on 2010 [id number] to severe on 2011 sleep study Social History Social History Type Response Smoking Status Light tobacco smoker entered on: 11/23/13 Sex
--- OUTSIDE RECORDS SUMMARY | 2022-06-29 00:03 | XMS_ITS | Continuity of Care Document ---
:1960 Author Organization [facility] Address [address] [place] [address]- Care Team Providers Name Role Phone Cam MANAGER PRODUCT, Aarti Arndt Primary Care Physician [facility]): 04[facility]21 - 05/04/21 [facility] [address] [place] [phone]- Allergies, Adverse Reactions, Alerts Substance Reaction Severity [...] (Td)7 12/19/09 Given 1Result Comment: [06/08/2013] Flulaval [id number]. VIS in Cymraes [id number] Note: VIS [id number] Note: VIS GIVEN VIS DATE 04/14/[id number] Note: VIS GIVEN 04/29/10 [id number] Note: vis [id number] Note: vis 04/287Admin Note: vis 03/25 Medications albuterol 0.083% inhalation solution 3 mL = 2.5 mg, Inhalation, 2 times a day, PRN Wheezing/Shortness of Breath, # 180 each, 3 Refills, Maintenance, 04/25/21 10:01:00 EDT, Inhalation Solution, [facility]/pharmacy #[id number], 157.48, cm, 03/06/21 9:17:00 EDT, Height, 57.73, kg, 07/19/20 15:56:00 EDT,... Start Date: 04/25/21 Stop Date: 04/20/22 Status: OrderedArtificial Tears preserved solution 1 drops, Eyes, Both, 2 times a day, PRN for dry eyes, # 30 mL, 1 Refills, Maintenance, 10/02/20 13:31:00 EST, Solution, [facility]/pharmacy #[id number], Partial fill upon patient request if the prescription is for a schedule II opioid drug., 1 drops Eyes, Both 2 t... Start Date: 10/02/20 Status: Orderedcapsaicin 0.025% topical cream 1 application, Topically, 2 times a day, avoid contact with face and eyes, # 45 Gm, 5 Refills, Maintenance, 04/25/21 10:01:00 EDT, Cream, [facility]/pharmacy #[id number], instructions in Cymraes, 1 application Topically 2 times a day,Instr:avoid contact with face... Start Date: 04/25/21 Status: OrderedClaritin 10 mg oral tablet 10 mg, 1, tablet, By Mouth, Daily, Label in Cymraes, # 90 tablet, Refills 3, Tot. Refills 3, Maintenance, 04/25/21 10:01:00 EDT, Route to Pharmacy Electronically, [facility]/pharmacy #[id number], 157.48, cm, 03/06/21 9:17:00 EDT, Height, 57.73, kg, 07/19/20 15:56:... Start Date: 04/25/21 Stop Date: 04/20/22 Status: Ordereddocusate-senna 50 mg-187 mg oral tablet 2 tablet, By Mouth, Daily at bedtime, PRN Constipation, # 60 tablet, 11 Refills, Maintenance, 04/25/21 10:03:00 EDT, Tablet, [facility]/pharmacy #[id number], 2 tablet By Mouth Daily at bedtime,PRN:Constipation, 157.48, cm, 03/06/21 9:17:00 EDT, Height, 57.73, kg,... Start Date: 04/25/21 Status: OrderedFLUoxetine 20 mg oral capsule 20 mg, 1, capsule, By Mouth, Daily, # 90 capsule, Refills 3, Tot. Refills 3, Maintenance, 04/25/21 10:01:00 EDT, Route to Pharmacy Electronically, [facility]/pharmacy #[id number], 157.48, cm, 03/06/21 9:17:00 EDT, [...] 2 Refills, Maintenance, 05/02/20 9:12:00 EDT, Tablet, [facility]/pharmacy #207, note increased dose, 157.48, cm, 07/12/19 10:08:00 EDT, Height Start Date: 05/02/20 Status: Orderedhydrocortisone 2.5% topical cream 1 application, Topically, 3 times a day, apply to rash on neck. instr sri lankan, # 20 Gm, 0 Refills, Maintenance, 04/28/21 19:30:00 EDT, Cream, [facility]/pharmacy #[id number], Partial fill upon patient request if the prescription is for a schedule II opioid drug.,... Start Date: 04/28/21 Status: OrderedLantus Solostar Pen 100 units/mL subcutaneous solution = 10 units, Subcutaneous Injection, Daily, # 10 mL, 11 Refills, Maintenance, 09/09/20 17:43:00 EST, Solution, [facility]/pharmacy #207, Cymraes label please, 157.48, cm, 08/09/20 13:26:00 EST, Height, 57.73,kg, 07/19/20 15:56:00 EDT, Dry Weight Start Date: 09/09/20 Status: Orderedlevothyroxine 75 mcg (0.075 mg) oral tablet 1 tablet = 75 mcg, By Mouth, Daily, # 90 tablet, 3 Refills, Maintenance, 10/02/20 13:30:00 EST, Tablet, [facility]/pharmacy #[id number], Dose changes from 88mcg to 75mcg 10/02/20, 157.48, cm, 08/09/20 13:26:00 EST, Height, 57.73, kg, 07/19/20 15:56:00 EDT, Dry Weight Start Date: 10/02/20 Status: Orderedlisinopril 5 mg oral tablet 5 mg, 1, tablet, By Mouth, Daily, to protect kidneys, # 90 tablet, Refills 0, Tot. Refills 0, Maintenance, 04/23/21 13:17:00 EDT, Route to Pharmacy Electronically, [facility]/pharmacy #207, 157.48, cm, 03/06/21 9:17:00 EDT, Height, 57.73, kg, 07/19/20 15:56... Start Date: 04/23/21 Status: OrderedmetFORMIN 500 mg oral tablet 1 tablet = 500 mg, By Mouth, 2 times a day, # 60 tablet, 5 Refills, Maintenance, 04/25/21 10:02:00 EDT, Tablet, [facility]/pharmacy #[id number], dose change 08/09/20, 157.48, cm, 03/06/21 9:17:00 EDT, Height, 57.73, kg, 07/19/20 15:56:00 EDT, Dry Weight Start Date: 04/25/21 Status: Orderedmultivitamin Multiple Vitamins oral capsule 1 capsule, By Mouth, Daily, # 90 capsule, 3 Refills, Maintenance, 03/06/21 10:22:00 EDT, Capsule, [facility]/pharmacy #[id number], Partial fill upon patient request if the prescription is for a schedule II opioid drug., 1 capsule By Mouth Daily, 157.48, cm, ... Start Date: 03/06/21 Status: Orderedmupirocin 2% topical ointment 1 application, Topically, 2 times a day, apply to vulvar bump only. instr sri lankan, # 15 Gm, 0 Refills, Maintenance, 02/25/21 16:46:00 EDT, Ointment, [facility]/pharmacy #[id number], Partial fill upon patient request [...] Dry Weight Start Date: 04/28/21 Status: OrderedPen [place], 30 G x 8 mm BD Ultra [...] Maintenance,04/25/21 10:01:00 EDT, [id number] 157.48, cm, 03/06/21 9:17:00 EDT, Height, 57.73, kg, 07/19/20 15:56:00 ED... Start Date: 04/25/21 Status: OrderedsitaGLIPtin 100 mg oral tablet 1 tablet = 100 mg, By Mouth, Daily, # 30 tablet, 11 Refills, Maintenance, 04/25/21 10:01:00 EDT, Tablet, [facility]/pharmacy #[id number], 157.48, cm, 03/06/21 9:17:00 EDT, Height, 57.73, kg, 07/19/20 15:56:00 EDT, Dry Weight Start Date: 04/25/21 Status: OrderedVentolin HFA 108 mcg/inh inhalation aerosol with adapter 1 puffs, Inhalation, 4 times a day, PRN for wheezing, PLEASE DISPENSE VENTOLIN, NOT PROAIR, CLIENT DOES NOT TOLERATE PRO AIR, # 18 Gm, 11 Refills, Maintenance, 04/25/21 10:01:00 EDT, Aerosol, [facility]/pharmacy #[id number], 157.48, cm, 03/06/21 9:17:00 EDT, [...] Snoring symptom(Confirmed)7 2011 Active 1per 8-2009 pulm [id number]/p Right ear surg 12/20103h/o hearing loss, rt side4 chronic, Rt, seen by ENT5s/p forcepts [id number] on 2010 [id number] to severe on 2011 sleep study Social History Social History Type Response Smoking Status Light tobacco smoker entered on: 11/23/13 Sex
--- OUTSIDE RECORDS SUMMARY | 2022-06-29 00:03 | XMS_ITS | Continuity of Care Document ---
:1960 Author Organization [facility] Address [address] [place] [address]- Care Team Providers Name Role Phone Cam SEMICONDUCTOR ENGINEER, Aarti Arndt Primary Care Physician [facility] 08[facility]20 - 09/25/20 [facility] [address] [place] [phone]- Allergies, Adverse Reactions, Alerts Substance Reaction Severity [...] (Td)7 12/19/09 Given 1Result Comment: [06/08/2013] Flulaval [id number]. VIS in Nigerian [id number] Note: VIS [id number] Note: VIS GIVEN VIS DATE 04/14/1114iazfbub2Jghrg Note: VIS GIVEN 04/29/10 [id number] Note: vis [id number] Note: vis 04/287Admin Note: vis 03/25 Medications albuterol 0.083% inhalation solution 3 mL = 2.5 mg, Inhalation, 2 times a day, PRN Wheezing/Shortness of Breath, # 180 each, 3 Refills, Maintenance, 01/11/20 8:57:00 EDT, Inhalation Solution, [facility]/pharmacy #[id number], 157.48, cm, 07/12/19 10:08:00 EDT, Height Start Date: 01/11/20 Stop Date: 01/05/21 Status: Orderedcapsaicin 0.025% topical cream 1 application, Topically, 2 times a day, avoid contact with face and eyes, # 45 Gm, 5 Refills, Maintenance, 01/11/20 8:57:00 EDT, Cream, [facility]/pharmacy #[id number], instructions in Nigerian, 1 application Topically 2 times a day,Instr:avoid contact with face a... Start Date: 01/11/20 Status: OrderedClaritin 10 mg oral tablet 10 mg, 1, tablet, By Mouth, Daily, Label in Nigerian, # 90 tablet, Refills 3, Tot. Refills 3, Maintenance, 01/11/20 8:58:00 EDT, Route to Pharmacy Electronically, [facility]/pharmacy #[id number], 157.48, cm, 07/12/19 10:08:00 EDT, Height Start Date: 01/11/20 Stop Date: 01/05/21 Status: Ordereddocusate-senna 50 mg-187 mg oral tablet 2 tablet, By Mouth, Daily at bedtime, PRN Constipation, # 60 tablet, 11 Refills, Maintenance, 05/30/20 11:37:00 EDT, Tablet, [facility]/pharmacy #[id number], 2 tablet By Mouth Daily at bedtime,PRN:Constipation, 157.48, cm, 05/30/20 11:02:00 EDT, Height Start Date: 05/30/20 Status: OrderedFLUoxetine 20 mg oral capsule 20 mg, 1, capsule, By Mouth, Daily, # 90 capsule, Refills 3, Tot. Refills 3, Maintenance, 01/11/20 8:57:00 EDT, Route to Pharmacy Electronically, [facility]/pharmacy #[id number], 157.48, cm, 07/12/19 10:08:00 EDT, [...] Refills, Maintenance, 05/02/20 9:12:00 EDT, Tablet, [facility]/pharmacy #[id number], note increased dose, 157.48, cm, 07/12/19 10:08:00 EDT, Height Start Date: 05/02/20 Status: OrderedLantus Solostar Pen 100 units/mL subcutaneous solution = 10 units, Subcutaneous Injection, Daily, # 10 mL, 11 Refills, Maintenance, 09/09/20 17:43:00 EST, Solution, [facility]/pharmacy #[id number], Nigerian label please, 157.48, cm, 08/09/20 13:26:00 EST, Height, 57.73,kg, 07/19/20 15:56:00 EDT, Dry Weight Start Date: 09/09/20 Status: Orderedlevothyroxine 0.088 mg oral tablet 1 tablet = 88 mcg, By Mouth, Daily, # 90 tablet, 3 Refills, Maintenance, 08/09/20 13:59:00 EST, Tablet, [facility]/pharmacy #207, instead of capsules, 157.48, cm, 08/09/20 13:26:00 EST, Height, 57.73, kg, 07/19/20 15:56:00 EDT, Dry Weight Start Date: 08/09/20 Status: Orderedlidocaine 5% topical film 1 patch, Topically, Daily, PRN Pain , Mild, remove after 12 hours, # 30 patch, 5 Refills, Maintenance, 05/02/20 9:17:00 EDT, Film, [facility]/pharmacy #207, 1 patch Topically Daily,PRN:Pain , Mild,Instr:remove after 12 hours, 157.48, cm, 07/12/19 10:08:00 E... Start Date: 05/02/20 Status: Orderedlisinopril 5 mg oral tablet 5 mg, 1, tablet, By Mouth, Daily, to protect kidneys, # 90 tablet, Refills 3, Tot. Refills 3, Maintenance, 05/02/20 9:22:00 EDT, Route to Pharmacy Electronically, [facility]/pharmacy #207, 157.48, cm, 07/12/19 10:08:00 EDT, Height Start Date: 05/02/20 Status: OrderedmetFORMIN 500 mg oral tablet 1 tablet = 500 mg, By Mouth, 2 times a day, # 60 tablet, 5 Refills, Maintenance, 09/18/20 14:17:00 EST, Tablet, [facility]/pharmacy #207, dose change 08/09/20, 157.48, cm, 08/09/20 13:26:00 EST, Height, 57.73, kg, 07/19/20 15:56:00 EDT, Dry Weight Start Date: 09/18/20 Status: OrderedMiraLax oral powder for reconstitution = 17 Gm, By Mouth, Daily, dissolve in water before taking, # 527 Gm, 1 Refills, Maintenance, 01/11/20 8:59:00 EDT, REC Powder, [facility]/pharmacy #207, 17 Gm By Mouth Daily,Instr:dissolve in water before taking, 157.48, cm, 07/12/19 10:08:00 EDT, Height Start Date: 4/23/20 Status: Orderedomeprazole 20 mg oral enteric coated capsule 1 capsule = 20 mg, By Mouth, Daily, # 90 capsule, 1 Refills, Maintenance, 04/08/20 13:48:00 EDT, EC Capsule, [facility]/pharmacy #207, 157.48, cm, 07/12/19 10:08:00 EDT, Height Start Date: 04/08/20 Status: OrderedPen [place], 30 G x 8 mm BD Ultra [...] 8:57:00 EDT, Route to Pharmacy Electronically, [facility]/pharmacy #207, 157.48, cm, 07/12/19 10:08:00 EDT, Height Start Date: 01/11/20 Status: OrderedsitaGLIPtin 100 mg oral tablet 1 tablet = 100 mg, By Mouth, Daily, # 30 tablet, 11 Refills, Maintenance, 01/11/20 8:57:00 EDT, Tablet, [facility]/pharmacy #207, 157.48, cm, 07/12/19 10:08:00 EDT, Height Start Date: 01/11/20 Status: OrderedTrulicity Pen 0.75 mg/0.5 mL subcutaneous solution 0.5 mL = 0.75 mg, Subcutaneous Injection, Every week, # 2.5 mL, 5 Refills, Maintenance, 08/09/20 13:59:00 EST, Solution, [facility]/pharmacy #[id number], Partial fill upon patient request, [...] Active Snoring symptom(Confirmed)7 2011 Active 1per pulm tbixd1H/p Right ear surg 12/20103h/o hearing loss, rt side4 chronic, Rt, seen by ENT5s/p forcepts [id number] on 2010 [id number] to severe on 2011 sleep study Social History Social History Type Response Smoking Status Light tobacco smoker entered on: 11/23/13 Sex
--- OUTSIDE RECORDS SUMMARY | 2022-06-29 00:03 | XMS_ITS | Continuity of Care Document ---
:1960 Author Organization [facility] Address [address] [place] [phone]- Care Team Providers Name Role Phone Cam BAÑUELOS, Aarti Arndt Primary Care Physician [facility] 01[facility]29[facility]20 - 02/05/20 [facility] [address] [place] [phone]- [facility] Encounter Diagnosis Diabetes mellitus - adult onset (Discharge Diagnosis) - 01/29/20 Hypothyroid (Discharge Diagnosis) - 01/29/20 Attending Physician: Cam BAÑUELOS, Aarti Arndt Allergies, Adverse Reactions, Alerts Substance Reaction Severity [...] (Td)7 12/19/09 Given 1Result Comment: [06/08/2013] Flulaval [id number]. VIS in Guamanian [id number] Note: VIS [id number] Note: VIS GIVEN VIS DATE 04/14/1198awjmeax4Vgaef Note: VIS GIVEN 04/29/10 [id number] Note: vis [id number] Note: vis 04/287Admin Note: vis 03/25 Medications albuterol 0.083% inhalation solution 3 mL = 2.5 mg, Inhalation, 2 times a day, PRN Wheezing/Shortness of Breath, # 180 each, 3 Refills, Maintenance, 01/11/20 8:57:00 EDT, Inhalation Solution, [facility]/pharmacy #[id number], 157.48, cm, 07/12/19 10:08:00 EDT, Height Start Date: 01/11/20 Stop Date: 01/05/21 Status: Orderedbetamethasone topical dipropionate 0.05% cream See Instructions, # 45 Gm, Refills 2 Tot. Refills 2, APLIQUE AL AREA AFECTADA DOS VECES AL PRINCE, [facility]/pharmacy #[id number] Start Date: 06/25/19 Status: Orderedcapsaicin 0.025% topical cream 1 application, Topically, 2 times a day, avoid contact with face and eyes, # 45 Gm, 5 Refills, Maintenance, 01/11/20 8:57:00 EDT, Cream, [facility]/pharmacy #207, instructions in Guamanian, 1 application Topically 2 times a day,Instr:avoid contact with face a... Start Date: 01/11/20 Status: OrderedClaritin 10 mg oral tablet 10 mg, 1, tablet, By Mouth, Daily, Label in Guamanian, # 90 tablet, Refills 3, Tot. Refills 3, Maintenance, 01/11/20 8:58:00 EDT, Route to Pharmacy Electronically, [facility]/pharmacy #[id number], 157.48, cm, 07/12/19 [...] 01/11/20 8:57:00 EDT, Route to Pharmacy Electronically, [facility]/pharmacy #[id number], 157.48, cm, 07/12/19 [...] 01/11/20 8:59:00 EDT, Route to Pharmacy Electronically, [facility]/pharmacy #[id number], 157.48, cm, 07/12/19 [...] Refills, Maintenance, 01/11/20 8:57:00 EDT, ER Tablet, [facility]/pharmacy #2071, 157.48, cm, 07/12/19 10:08:00 EDT, Height Start Date: 01/11/20 Status: OrderedMiraLax oral powder for reconstitution = 17 Gm, By Mouth, Daily, dissolve in water before taking, # 527 Gm, 1 Refills, Maintenance, 01/11/20 8:59:00 EDT, REC Powder, [facility]/pharmacy #2071, 17 Gm By Mouth Daily,Instr:dissolve in water before taking, 157.48, cm, 07/12/19 10:08:00 EDT, Height Start Date: 01/11/20 Status: Orderedomeprazole 20 mg oral enteric coated capsule 1 capsule = 20 mg, By Mouth, Daily, # 90 capsule, 1 Refills, Maintenance, 01/11/20 9:00:00 EDT, EC Capsule, [facility]/pharmacy #[id number], 157.48, cm, 07/12/19 10:08:00 EDT, Height Start Date: 01/11/20 Status: Orderedsimvastatin 20 mg oral tablet 20 mg, 1, tablet, By Mouth, Daily at bedtime, # 30 tablet, Refills 11, Tot. Refills 11, Maintenance,01/11/20 8:57:00 EDT, Route to Pharmacy Electronically, [facility]/pharmacy #[id number], 157.48, cm, 07/12/19 10:08:00 EDT, Height Start Date: 01/11/20 Status: OrderedsitaGLIPtin 100 mg oral tablet 1 tablet = 100 mg, By Mouth, Daily, # 30 tablet, 11 Refills, Maintenance, 01/11/20 8:57:00 EDT, Tablet, [facility]/pharmacy #1, 157.48, cm, 07/12/19 10:08:00 EDT, Height Start Date: 01/11/20 Status: OrderedVentolin HFA 108 mcg/inh inhalation aerosol with adapter 1 puffs, Inhalation, 4 times a day, PRN for wheezing, PLEASE DISPENSE VENTOLIN, NOT PROAIR, CLIENT DOES NOT TOLERATE PRO AIR, # 18 Gm, 11 Refills, Maintenance, 01/11/20 8:57:00 EDT, Aerosol, [facility]/pharmacy #1, 157.48, cm, 07/12/19 10:08:00 EDT, [...] Active Snoring symptom(Confirmed)7 2011 Active 1per pulm tbrng2A/p Right ear surg 12/20103h/o hearing loss, rt side4 chronic, Rt, seen by ENT5s/p forcepts [email or web address] on 2010 [id number] to severe on 2011 sleep study Diagnosis Diagnosis Type Effective Dates Health Clinical Infor mant Status Service Diabetes mellitus Discharge 01/29/20 - adult onset Diagnosis Hypothyroid Discharge 01/29/20 Diagnosis Social History Social History Type Response Smoking Status Light tobacco smoker entered on: 11/23/13 Sex
--- OUTSIDE RECORDS SUMMARY | 2022-06-29 00:03 | XMS_ITS | Continuity of Care Document ---
:1960 Author Organization [facility] enter/[facility] Address [address] [place] [address]- Care Team Providers Name Role Phone Cam BAÑUELOS, Aarti Arndt Primary Care Physician [facility]counter [facility] Date(s): 03/27/20 - 04/26/20 [facility] [address] [id number]- [facility] Allergies, Adverse Reactions, Alerts Substance Reaction Severity [...] (Td)7 12/19/09 Given 1Result Comment: [06/08/2013] Flulaval [id number]. VIS in Moldovan [id number] Note: VIS [id number] Note: VIS GIVEN VIS DATE 04/14/[id number] Note: VIS GIVEN 04/29/10 [id number] Note: vis [id number] Note: vis 04/287Admin Note: vis 03/25 Medications albuterol 0.083% inhalation solution 3 mL = 2.5 mg, Inhalation, 2 times a day, PRN Wheezing/Shortness of Breath, # 180 each, 3 Refills, Maintenance, 01/11/20 8:57:00 EDT, Inhalation Solution, [facility]/pharmacy #[id number], 157.48, cm, 07/12/19 10:08:00 EDT, Height Start Date: 01/11/20 Stop Date: 01/05/21 Status: Orderedbaclofen 10 mg oral tablet 10 mg, 1, tablet, By Mouth, 2 times a day, for back pain, # 14 tablet, Refills 1, Tot. Refills 1, Maintenance, 03/29/20 16:40:00 EDT, Route to Pharmacy Electronically, [facility]/pharmacy #[id number], 157.48, cm, 07/12/19 10:08:00 EDT, Height Start Date: 03/29/20 Stop Date: 04/12/20 Status: Orderedbetamethasone topical dipropionate 0.05% cream See Instructions, # 45 Gm, Refills 2 Tot. Refills 2, APLIQUE AL AREA AFECTADA DOS VECES AL PRINCE, [facility]/pharmacy #[id number] Start Date: 06/25/19 Status: Orderedcapsaicin 0.025% topical cream 1 application, Topically, 2 times a day, avoid contact with face and eyes, # 45 Gm, 5 Refills, Maintenance, 01/11/20 8:57:00 EDT, Cream, [facility]/pharmacy #[id number], instructions in Moldovan, 1 application Topically 2 times a day,Instr:avoid contact with face a... Start Date: 01/11/20 Status: OrderedClaritin 10 mg oral tablet 10 mg, 1, tablet, By Mouth, Daily, Label in Moldovan, # 90 tablet, Refills 3, Tot. Refills 3, Maintenance, 01/11/20 8:58:00 EDT, Route to Pharmacy Electronically, [facility]/pharmacy #[id number], 157.48, cm, 07/12/19 10:08:00 [...] # 1 tablet, 0 Refills, Soft Stop, 04/18/20 8:21:00 EDT, Tablet, [facility]/pharmacy #207, 157.48, cm, 07/12/19 10:08:00 EDT, Height Start Date: 04/18/20 Status: OrderedFLUoxetine 20 mg oral capsule 20 mg, 1, capsule, By Mouth, Daily, # 90 capsule, Refills 3, Tot. Refills 3, Maintenance, 01/11/20 8:57:00 EDT, Route to Pharmacy Electronically, [facility]/pharmacy #[id number], 157.48, cm, 07/12/19 10:08:00 [...] 01/11/20 8:59:00 EDT, Route to Pharmacy Electronically, [facility]/pharmacy #[id number], 157.48, cm, 07/12/19 10:08:00 EDT, Height Start Date: 01/11/20 Status: Orderedlevothyroxine 0.088 mg oral tablet 1 tablet = 88 mcg, By Mouth, Daily, # 90 tablet, 3 Refills, Maintenance, 07/12/19 11:19:40 EDT, Tablet, instead of capsules Start Date: 07/12/19 Status: Orderedlidocaine 5% topical film 1 patch, Topically, Daily, PRN Pain , Mild, remove after 12 hours, # 13 each, 5 Refills, Maintenance, 04/18/20 8:21:00 EDT, Film, [facility]/pharmacy #207, 1 patch Topically Daily,PRN:Pain , Mild,Instr:remove after 12 hours, 157.48, cm, 07/12/19 10:08:00 ED... Start Date: 04/18/20 Status: OrderedmetFORMIN 750 mg oral tablet, extended release 1 tablet = 750 mg, By Mouth, Daily, # 30 tablet, 11 Refills, Maintenance, 01/11/20 8:57:00 EDT, ER Tablet, [facility]/pharmacy #[id number], 157.48, cm, 07/12/19 10:08:00 EDT, Height Start Date: 01/11/20 Status: OrderedMiraLax oral powder for reconstitution = 17 Gm, By Mouth, Daily, dissolve in water before taking, # 527 Gm, 1 Refills, Maintenance, 01/11/20 8:59:00 EDT, REC Powder, [facility]/pharmacy #[id number], 17 Gm By Mouth Daily,Instr:dissolve in water before taking, 157.48, cm, 07/12/19 10:08:00 EDT, Height Start Date: 01/11/20 Status: Orderednabumetone 750 mg oral tablet 1 tablet = 750 mg, By Mouth, 2 times a day, # 60 tablet, 0 Refills, Maintenance, 03/29/20 16:37:00 EDT, Tablet, [facility]/pharmacy #[id number], 157.48, cm, 07/12/19 10:08:00 EDT, Height Start Date: 03/29/20 Status: Orderedomeprazole 20 mg oral enteric coated capsule 1 capsule = 20 mg, By Mouth, Daily, # 90 capsule, 1 Refills, Maintenance, 04/08/20 13:48:00 EDT, EC Capsule, [facility]/pharmacy #[id number], 157.48, cm, 07/12/19 10:08:00 EDT, Height Start Date: 04/08/20 Status: Orderedsimvastatin 20 mg oral tablet 20 mg, 1, tablet, By Mouth, Daily at bedtime, # 30 tablet, Refills 11, Tot. Refills 11, Maintenance,01/11/20 8:57:00 EDT, Route to Pharmacy Electronically, [facility]/pharmacy #[id number], 157.48, cm, 07/12/19 10:08:00 EDT, Height Start Date: 01/11/20 Status: OrderedsitaGLIPtin 100 mg oral tablet 1 tablet = 100 mg, By Mouth, Daily, # 30 tablet, 11 Refills, Maintenance, 01/11/20 8:57:00 EDT, Tablet, [id number], 157.48, cm, 07/12/19 10:08:00 EDT, [...] Snoring symptom(Confirmed)7 2011 Active 1per -2009 pulm [id number]/p Right ear surg 12/20103h/o hearing loss, rt side4 chronic, Rt, seen by ENT5s/p forcepts [id number] on 2010 [id number] to severe on 2011 sleep study Social History Social History Type Response Smoking Status Light tobacco smoker entered on: 11/23/13 Sex
--- OUTSIDE RECORDS SUMMARY | 2022-06-29 00:03 | XMS_ITS | Continuity of Care Document ---
:1960 Author Organization [facility] Address [address] [place] [address]- Care Team Providers Name Role Phone Cam PROCEDURE TECH, Aarti Arndt Primary Care Physician [facility]counter [facility] Date(s): 02/25/21 - 03/27/21 [facility] [address] [place] [phone]- Allergies, Adverse Reactions, Alerts Substance Reaction Severity [...] (Td)7 12/19/09 Given 1Result Comment: [06/08/2013] Flulaval [id number]. VIS in Cuban [id number] Note: VIS [id number] Note: VIS GIVEN VIS DATE 04/14/1182jigsxcq1Rwzsk Note: VIS GIVEN 04/29/10 [id number] Note: vis aapil0Xbrem Note: vis 04/287Admin Note: vis 03/25 Medications albuterol 0.083% inhalation solution 3 mL = 2.5 mg, Inhalation, 2 times a day, PRN Wheezing/Shortness of Breath, # 180 each, 3 Refills, Maintenance, 01/11/20 8:57:00 EDT, Inhalation Solution, [facility]/pharmacy #207, 157.48, cm, 07/12/19 10:08:00 EDT, Height Start Date: 01/11/20 Stop Date: 01/05/21 Status: OrderedArtificial Tears preserved solution 1 drops, Eyes, Both, 2 times a day, PRN for dry eyes, # 30 mL, 1 Refills, Maintenance, 10/02/20 13:31:00 EST, Solution, [facility]/pharmacy #207, Partial fill upon patient request if the prescription is for a schedule II opioid drug., 1 drops Eyes, Both 2 t... Start Date: 10/02/20 Status: Orderedcapsaicin 0.025% topical cream 1 application, Topically, 2 times a day, avoid contact with face and eyes, # 45 Gm, 5 Refills, Maintenance, 01/11/20 8:57:00 EDT, Cream, [facility]/pharmacy #207, instructions in Cuban, 1 application Topically 2 times a day,Instr:avoid contact with face a... Start Date: 01/11/20 Status: OrderedClaritin 10 mg oral tablet 10 mg, 1, tablet, By Mouth, Daily, Label in Cuban, # 90 tablet, Refills 3, Tot. Refills 3, Maintenance, 01/11/20 8:58:00 EDT, Route to Pharmacy Electronically, [facility]/pharmacy #207, 157.48, cm, 07/12/19 10:08:00 EDT, Height Start Date: 01/11/20 Stop Date: 01/05/21 Status: Ordereddocusate-senna 50 mg-187 mg oral tablet 2 tablet, By Mouth, Daily at bedtime, PRN Constipation, # 60 tablet, 11 Refills, Maintenance, 05/30/20 11:37:00 EDT, Tablet, [facility]/pharmacy #207, 2 tablet By Mouth Daily at bedtime,PRN:Constipation, 157.48, cm, 05/30/20 11:02:00 EDT, Height Start Date: 05/30/20 Status: OrderedFLUoxetine 20 mg oral capsule 20 mg, 1, capsule, By Mouth, Daily, # 90 capsule, Refills 3, Tot. Refills 3, Maintenance, 01/11/20 8:57:00 EDT, Route to Pharmacy Electronically, [facility]/pharmacy #[id number], 157.48, cm, 07/12/19 10:08:00 EDT, Height [...] 2 Refills, Maintenance, 05/02/20 9:12:00 EDT, Tablet, [facility]/pharmacy #[id number], note increased dose, 157.48, cm, 07/12/19 [...] Maintenance, 09/09/20 17:43:00 EST, Solution, [id number], Cuban label please, 157.48, cm, 08/09/20 13:26:00 EST, [...] 05/02/20 9:22:00 EDT, Route to Pharmacy Electronically, [facility]/pharmacy #207, 157.48, cm, 07/12/19 10:08:00 EDT, Height Start Date: 05/02/20 Status: OrderedmetFORMIN 500 mg oral tablet 1 tablet = 500 mg, By Mouth, 2 times a day, # 60 tablet, 5 Refills, Maintenance, 09/18/20 14:17:00 EST, Tablet, [facility]/pharmacy #[id number], dose change 08/09/20, 157.48, cm, 08/09/20 13:26:00 EST, Height, 57.73, kg, 07/19/20 15:56:00 EDT, Dry Weight Start Date: 09/18/20 Status: OrderedMiraLax oral powder for reconstitution = 17 Gm, By Mouth, Daily, dissolve in water before taking, # 527 Gm, 1 Refills, Maintenance, 01/11/20 8:59:00 EDT, REC Powder, [facility]/pharmacy #[id number], 17 Gm By Mouth Daily,Instr:dissolve in water before taking, 157.48, cm, 07/12/19 10:08:00 EDT, Height Start Date: 01/11/20 Status: Orderedmultivitamin Multiple Vitamins oral capsule 1 capsule, By Mouth, Daily, # 90 capsule, 3 Refills, Maintenance, 03/06/21 10:22:00 EDT, Capsule, [facility]/pharmacy #[id number], Partial fill upon patient request if the prescription is for a schedule II opioid drug., 1 capsule By Mouth Daily, 157.48, cm, ... Start Date: 03/06/21 Status: Orderedmupirocin 2% topical ointment 1 application, Topically, 2 times a day, apply to vulvar bump only. instr citizen [place], # 15 Gm, 0 Refills, Maintenance, 02/25/21 16:46:00 EDT, Ointment, [facility]/pharmacy #[id number], Partial fill upon patient request if the prescription is for a schedule II opioid... Start Date: 02/25/21 Stop Date: 03/11/21 Status: Orderedomeprazole 20 mg oral enteric coated capsule 1 capsule = 20 mg, By Mouth, Daily, # 90 capsule, 1 Refills, Maintenance, 01/08/21 14:58:00 EDT, EC Capsule, [facility]/pharmacy #[id number], 157.48, cm, 08/09/20 13:26:00 EST, Height, 57.73, kg, 07/19/20 15:56:00 EDT, Dry Weight Start Date: 01/08/21 Status: OrderedPen [place], 30 G x 8 mm BD Ultra [...] 0 Refills, Maintenance, 02/19/21 5:10:00 EDT, Tablet, [facility]/pharmacy #[id number], Partial fill upon patient request if the prescription is for a schedule II opioid drug., 157.48, cm, 08/09/20 13:26:00 EST, Heigh... Start Date: 02/19/21 Stop Date: 02/22/21 Status: Orderedsimvastatin 20 mg oral tablet 20 mg, 1, tablet, By Mouth, Daily at bedtime, # 30 tablet, Refills 11, Tot. Refills 11, Maintenance,01/11/20 8:57:00 EDT, Route to Pharmacy Electronically, [facility]/pharmacy #[id number], 157.48, cm, 07/12/19 10:08:00 EDT, Height Start Date: 01/11/20 Status: OrderedsitaGLIPtin 100 mg oral tablet 1 tablet = 100 mg, By Mouth, Daily, # 30 tablet, 11 Refills, Maintenance, 01/11/20 8:57:00 EDT, Tablet, [facility]/pharmacy #[id number], 157.48, cm, 07/12/19 10:08:00 EDT, Height [...] Active Snoring symptom(Confirmed)7 2011 Active 1per pulm [id number]/p Right ear surg 12/20103h/o hearing loss, rt side4 chronic, Rt, seen by ENT5s/p forcepts [id number] on 2010 [id number] to severe on 2011 sleep study Social History Social History Type Response Smoking Status Light tobacco smoker entered on: 11/23/13 Sex
--- OUTSIDE RECORDS SUMMARY | 2022-06-29 00:03 | XMS_ITS | Continuity of Care Document ---
:1960 Author Organization [facility] Address [address] [place] [address]- Care Team Providers Name Role Phone Cam BAÑUELOS, Aarti Arndt Primary Care Physician Encounter [facility] Date(s): 08/20/21 - 09/26/21 [facility] [address] [place] [id number]- Attending Physician: Cam BAÑUELOS, Aarti Arndt Admitting Physician: Cam BAÑUELOS, Aarti Arndt Allergies, Adverse Reactions, Alerts Substance Reaction Severity Status doxycycline unknown Active [id number] [D]Nausea Active Stomach ache [D]Headache [...] (Td)7 12/19/09 Given 1Result Comment: [06/08/2013] Flulaval [id number]. VIS in Dutch [id number] Note: VIS [id number] Note: VIS GIVEN VIS DATE 04/14/1117lfybrml8Huhlh Note: VIS GIVEN 04/29/10 [id number] Note: vis wfkue5Rfcta Note: vis 04/287Admin Note: vis 03/25 Medications [...] 10:01:00 EDT, Cream, [id number], instructions in Dutch, 1 application Topically 2 times a day,Instr:avoid contact with face... Start Date: 04/25/21 Status: OrderedClaritin 10 mg oral tablet 10 mg, 1, tablet, By Mouth, Daily, Label in Dutch, # 90 tablet, Refills 3, Tot. Refills 3, Maintenance, 04/25/21 10:01:00 EDT, [facility] 157.[facility], cm, 03/06/21 9:17:00 EDT, Height, 57.73, kg, 07/19/20 15:56:... Start Date: 04/25/21 Stop Date: 04/20/22 Status: Ordereddocusate-senna 50 mg-187 mg oral tablet 2 tablet, By Mouth, Daily at bedtime, PRN Constipation, # 60 tablet, 11 Refills, Maintenance, 04/25/21 10:03:00 EDT, [facility]t, [facility], 2 tablet By Mouth Daily at bedtime,PRN:Constipation, 157.48, cm, 03/06/21 9:17:00 EDT, Height, 57.73, kg,... Start Date: 04/25/21 Status: OrderedFLUoxetine 20 mg oral capsule 20 mg, 1, capsule, By Mouth, Daily, # 90 capsule, Refills 3, Tot. Refills 3, Maintenance, 04/25/21 10:01:00 EDT, Route to Pharmacy Electronically, [facility]/pharmacy #207, 157.48, cm, 03/06/21 9:17:00 [...] 2 Refills, Maintenance, 05/02/20 9:12:00 EDT, Tablet, [facility]/pharmacy #[id number], note increased dose, 157.48, cm, 07/12/19 10:08:00 EDT, Height Start Date: 05/02/20 Status: Orderedhydrocortisone 2.5% topical cream 1 application, Topically, 3 times a day, apply to rash on neck. instr british, # 20 Gm, 0 Refills, Maintenance, 04/28/21 19:30:00 EDT, Cream, [id number], Partial fill upon patient request if the prescription is for a schedule II opioid drug.,... Start Date: 04/28/21 Status: OrderedLantus Solostar Pen 100 units/mL subcutaneous solution = 18 units, Subcutaneous Injection, Daily, # 12 mL, 11 Refills, Maintenance, 06/17/21 12:13:00 EDT, Solution, [id number], Dutch label please. Dose increase to 18u 06/17/21, 157.48, cm, 06/09/21 10:45:00 EDT, Height, 57.73, kg, 07/19/20 15:56:... Start Date: 06/17/21 Status: Orderedlevothyroxine 75 mcg (0.075 mg) oral tablet 1 tablet = 75 mcg, By Mouth, Daily, # 90 tablet, 3 Refills, Maintenance, 10/02/20 13:30:00 EST, Tablet, [facility]/pharmacy #[id number], Dose changes from 88mcg to 75mcg 10/02/20, 157.48, cm, 08/09/20 13:26:00 EST, Height, 57.73, kg, 07/19/20 15:56:00 EDT, Dry Weight Start Date: 10/02/20 Status: Orderedlisinopril 5 mg oral tablet 5 mg, 1, tablet, By Mouth, Daily, to protect kidneys, # 90 tablet, Refills 3, Tot. Refills 3, Maintenance, 07/18/21 9:44:00 EDT, Route to Pharmacy Electronically, [facility]/pharmacy #[id number], 157.48, cm, 06/24/21 9:15:00 EDT, Height, 57.73, kg, 07/19/20 15:56:... Start Date: 07/18/21 Status: OrderedmetFORMIN 500 mg oral tablet 1 tablet = 500 mg, By Mouth, 2 times a day, # 60 tablet, 5 Refills, Maintenance, 04/25/21 10:02:00 EDT, Tablet, [facility]/pharmacy #[id number], dose change 08/09/20, 157.48, cm, 03/06/21 9:17:00 EDT, Height, 57.73, kg, 07/19/20 15:56:00 EDT, Dry Weight Start Date: 04/25/21 Status: Orderedmultivitamin Multiple Vitamins oral capsule 1 capsule, By Mouth, Daily, # 90 capsule, 3 Refills, Maintenance, 03/06/21 10:22:00 EDT, Capsule, [facility]/pharmacy #[id number], Partial fill upon patient request if the prescription is for a schedule II opioid drug., 1 capsule By Mouth Daily, 157.48, cm, ... Start Date: 03/06/21 Status: Orderedmupirocin 2% topical ointment 1 application, Topically, 2 times a day, apply to vulvar bump only. instr british, # 15 Gm, 0 Refills, Maintenance, 02/25/21 16:46:00 EDT, Ointment, [facility]/pharmacy #[id number], Partial fill upon patient request if the prescription is for a schedule II opioid... Start Date: 02/25/21 Stop Date: 03/11/21 Status: Orderedomeprazole 20 mg oral enteric coated capsule 1 capsule = 20 mg, By Mouth, Daily, use as little as needed to control symptoms, # 90 capsule, 1 Refills, Maintenance, 07/18/21 9:44:00 EDT, EC Capsule, [facility]/pharmacy #[id number], 157.48, cm, 06/24/21 9:15:00EDT, Height, 57.73, kg, 07/19/20 15:56:00 EDT, . Start Date: 07/18/21 Status: OrderedPen [place], 30 G x 8 mm BD Ultra [...] Maintenance,04/25/21 10:01:00 EDT, Route to Pharmacy Electronically, [facility]/pharmacy #207, 157.48, cm, 03/06/21 9:17:00 EDT, Height, 57.73, kg, 07/19/20 15:56:00 ED... Start Date: 04/25/21 Status: OrderedsitaGLIPtin 100 mg oral tablet 1 tablet = 100 mg, By Mouth, Daily, # 30 tablet, 11 Refills, Maintenance, 04/25/21 10:01:00 EDT, Tablet, [facility]/pharmacy #207, 157.48, cm, 03/06/21 9:17:00 EDT, Height, 57.73, kg, 07/19/20 15:56:00 EDT, Dry Weight Start Date: 04/25/21 Status: OrderedVentolin HFA 108 mcg/inh inhalation aerosol with adapter 1 puffs, Inhalation, 4 times a day, PRN for wheezing, PLEASE DISPENSE VENTOLIN, NOT PROAIR, CLIENT DOES NOT TOLERATE PRO AIR, # 18 Gm, 11 Refills, Maintenance, 04/25/21 10:01:00 EDT, Aerosol, [id number], 157.48, cm, 03/06/21 9:17:00 EDT, Heigh... Start [...] Active Snoring symptom(Confirmed)7 2011 Active 1per pulm [id number]/p Right ear surg 12/20103h/o hearing loss, rt side4 chronic, Rt, seen by ENT5s/p forcepts [id number] on 2010 [id number] to severe on 2011 sleep study Social History Social History Type Response Smoking Status Light tobacco smoker entered on: 11/23/13 Sex
--- OUTSIDE RECORDS SUMMARY | 2022-06-29 00:03 | XMS_ITS | Continuity of Care Document ---
:1960 Author Organization [facility] Address [address] [place] [address]- Care Team Providers Name Role Phone Cam BAÑUELOS, Aarti Arndt Primary Care Physician [facility]counter [facility] Date(s): 05/14/21 - 06/13/21 [facility] [address] [place] [id number]- Allergies, Adverse Reactions, Alerts Substance Reaction Severity [...] (Td)7 12/19/09 Given 1Result Comment: [06/08/2013] Flulaval [id number]. VIS in Macedonian [id number] Note: VIS [id number] Note: VIS GIVEN VIS DATE 04/14/1112ibnbasa0Ozhky Note: VIS GIVEN 04/29/10 [id number] Note: vis ucovc9Iarkg Note: vis dmin Note: vis 03/25 Medications [...] 2 Refills, Maintenance, 06/09/21 11:18:00 EDT, Solution, [facility]/pharmacy #2071, Partial [...] [facility]/pharmacy #[id number], instructions in Macedonian, 1 application Topically 2 times a day,Instr:avoid contact with face... Start Date: 04/25/21 Status: OrderedClaritin 10 mg oral tablet 10 mg, 1, tablet, By Mouth, Daily, Label in Macedonian, # 90 tablet, Refills 3, Tot. Refills [...] day, apply to rash on neck. instr french, # 20 Gm, 0 Refills, Maintenance, 04/28/21 19:30:00 EDT, Cream, [id number], Partial fill upon patient request if the prescription is for a schedule II opioid drug.,... Start Date: 04/28/21 Status: OrderedLantus Solostar Pen 100 units/mL subcutaneous solution = 10 units, Subcutaneous Injection, Daily, # 10 mL, 11 Refills, Maintenance, 09/09/20 17:43:00 EST, Solution, [id number], Macedonian label please, 157.48, cm, 08/09/20 13:26:00 EST, [...] day, apply to vulvar bump only. instr french, # 15 Gm, 0 Refills, Maintenance, 02/25/21 16:46:00 EDT, Ointment, [facility]/pharmacy #2071, Partial fill upon patient request if the prescription is for a schedule II opioid... Start Date: 02/25/21 Stop Date: 03/11/21 Status: Orderedomeprazole 20 mg oral enteric coated capsule 1 capsule = 20 mg, By Mouth, Daily, # 90 capsule, 1 Refills, Maintenance, 04/28/21 19:29:00 EDT, EC Capsule, [facility]/pharmacy #2071, 157.48, cm, 04/28/21 17:35:00 EDT, Height, 57.73, kg, 07/19/20 15:56:00 EDT, Dry Weight Start Date: 04/28/21 Status: OrderedPen [place], 30 G x 8 mm BD Ultra [...] Maintenance,04/25/21 10:01:00 EDT, Route to Pharmacy Electronically, [facility]/pharmacy #[id number], 157.48, cm, 03/06/21 9:17:00 EDT, [...] 10:01:00 EDT, Aerosol, [facility]/pharmacy #207, 157.48, cm, 03/06/21 9:17:00 EDT, Heigh... Start [...] Snoring symptom(Confirmed)7 2011 Active 1per -2009 pulm irwyt3E/p Right ear surg 12/20103h/o hearing loss, rt side4 chronic, Rt, seen by ENT5s/p forcepts [id number] on 2010 [id number] to severe on 2011 sleep study Social History Social History Type Response Smoking Status Light tobacco smoker entered on: 11/23/13 Sex
--- OUTSIDE RECORDS SUMMARY | 2022-06-29 00:03 | XMS_ITS | Continuity of Care Document ---
:1960 Author Organization [facility] Address [address] [place] [address], [address] [address]- Care Team Providers Name Role Phone Cam BAÑUELOS, Aarti Arndt Primary Care Physician Encounter [facility] Date(s): 07/18/20 - 07/25/20 [facility] [address] [address]- Attending Physician: Unique Thakur MD Referring Physician: Drake Lemos MD Allergies, Adverse Reactions, Alerts Substance [...] (Td)7 12/19/09 Given 1Result Comment: [06/08/2013] Flulaval [id number]. VIS in [place] [id number] Note: VIS [id number] Note: VIS GIVEN VIS DATE 04/14/1174ecarpam6Qcagt Note: VIS GIVEN 04/29/10 [id number] Note: vis [id number] Note: vis 04/287Admin Note: vis 03/25 Medications albuterol 0.083% inhalation solution 3 mL = 2.5 mg, Inhalation, 2 times a day, PRN Wheezing/Shortness of Breath, # 180 each, 3 Refills, Maintenance, 01/11/20 8:57:00 EDT, [id number] 157.48, cm, 07/12/19 10:08:00 EDT, Height Start Date: 01/11/20 Stop Date: 01/05/21 Status: Orderedbaclofen 10 mg oral tablet 10 mg, 1, tablet, By Mouth, 2 times a day, for back pain, # 14 tablet, Refills 1, Tot. Refills 1, Maintenance, 03/29/20 16:40:00 EDT, [id number] 157.48, cm, 07/12/19 10:08:00 EDT, Height Start Date: 03/29/20 Stop Date: 04/12/20 Status: Orderedcapsaicin 0.025% topical cream 1 application, Topically, 2 times a day, avoid contact with face and eyes, # 45 Gm, 5 Refills, Maintenance, 01/11/20 8:57:00 EDT, Cream, [facility]/pharmacy #207, instructions in [place], 1 application Topically 2 times a day,Instr:avoid contact with face a... Start Date: 01/11/20 Status: OrderedClaritin 10 mg oral tablet 10 mg, 1, tablet, By Mouth, Daily, Label in [place], # 90 tablet, Refills 3, Tot. Refills 3, Maintenance, 01/11/20 8:58:00 EDT, Route to Pharmacy Electronically, [facility]/pharmacy #207, 157.48, cm, 07/12/19 10:08:00 EDT, Height Start Date: 01/11/20 Stop Date: 01/05/21 Status: OrderedDilaudid 2 mg oral tablet 1 tablet = 2 mg, By Mouth, Every 4 hours, PRN Pain , Severe, take half a tablet every 6 hours prn pain., # 28 tablet, 0 Refills, Acute 08/02/20 15:34:00 EST, 07/24/20 15:32:00 EST, Tablet, [facility], Partial fill upon patient request, 1... Start Date: 07/24/20 Stop Date: 08/02/20 Status: Ordereddocusate-senna 50 mg-187 mg oral tablet 2 tablet, By Mouth, Daily at bedtime, PRN Constipation, # 60 tablet, 11 Refills, Maintenance, 05/30/20 11:37:00 EDT, Tablet, [facility]/pharmacy #207, 2 tablet By Mouth Daily at bedtime,PRN:Constipation, 157.48, cm, 05/30/20 11:02:00 EDT, Height Start Date: 05/30/20 Status: OrderedFLUoxetine 20 mg oral capsule 20 mg, 1, capsule, By Mouth, Daily, # 90 capsule, Refills 3, Tot. Refills 3, Maintenance, 01/11/20 8:57:00 EDT, Route to Pharmacy Electronically, [facility]/pharmacy #207, 157.48, cm, 07/12/19 10:08:00 EDT, Height Start Date: 01/11/20 Status: OrderedFreestyle Lite Monitor See Instructions, # 1 each, Maintenance, Dx: dm2, 1-2 times daily checks, 07/12/19 11:21:40 EDT, Compound Start Date: 07/12/19 Status: Orderedgabapentin 600 mg oral tablet 1 tablet = 600 mg, By Mouth, 3 times a day, # 90 tablet, 2 Refills, Maintenance, 05/02/20 9:12:00 EDT, Tablet, [facility]/pharmacy #207, note increased dose, 157.48, cm, 07/12/19 10:08:00 EDT, Height Start Date: 05/02/20 Status: Orderedibuprofen 600 mg oral tablet 600 mg, 1, tablet, By Mouth, 3 times a day, PRN, for 30 days, # 90 tablet, Refills 1, Tot. Refills 1, Acute 08/26/20 8:27:00 EST, Pain , Mild, 06/27/20 8:27:00 EDT, Route to Pharmacy Electronically, [facility]/pharmacy #207, Enteric coated if possible pleas... Start [...] 5 Refills, Maintenance, 05/02/20 9:17:00 EDT, Film, [facility]/pharmacy #[id number], 1 patch Topically Daily,PRN:Pain , Mild,Instr:remove after 12 hours, 157.48, cm, 07/12/19 10:08:00 E... Start Date: 05/02/20 Status: Orderedlisinopril 5 mg oral tablet 5 mg, 1, tablet, By Mouth, Daily, to protect kidneys, # 90 tablet, Refills 3, Tot. Refills 3, Maintenance, 05/02/20 9:22:00 EDT, Route to Pharmacy Electronically, [facility]/pharmacy #[id number], 157.48, cm, 07/12/19 10:08:00 EDT, Height [...] Maintenance, 01/11/20 8:59:00 EDT, REC Powder, [facility] #[id number], 17 Gm By Mouth Daily,Instr:dissolve in water before taking, 157.48, cm, 07/12/19 10:08:00 EDT, Height Start Date: 01/11/20 Status: Orderedomeprazole 20 mg oral enteric coated capsule 1 capsule = 20 mg, By Mouth, Daily, # 90 capsule, 1 Refills, Maintenance, 04/08/20 13:48:00 EDT, EC Capsule, [facility], 157.48, cm, 10/23/19 10:08:00 EDT, Height Start Date: 04/08/20 Status: OrderedoxyCODONE 5 mg oral tablet 10 mg, 2, tablet, By Mouth, Every 6 hours, PRN, # 28 tablet, Refills 0, Tot. Refills 0, Acute 08/02/20 11:42:00 EST, Pain , Severe, 07/24/20 11:41:00 EST, Route to Pharmacy Electronically, [facility], Partial fill upon patient request, 1... Start Date: 07/24/20 Stop Date: 08/02/20 Status: Orderedsimvastatin 20 mg oral tablet 20 mg, 1, tablet, By Mouth, Daily at bedtime, # 30 tablet, Refills 11, Tot. Refills 11, Maintenance,01/11/20 8:57:00 EDT, [id number] 157.48, cm, 07/12/19 10:08:00 EDT, Height Start Date: 01/11/20 Status: OrderedsitaGLIPtin 100 mg oral tablet 1 tablet = 100 mg, By Mouth, Daily, # 30 tablet, 11 Refills, Maintenance, 01/11/20 8:57:00 EDT, Tablet, [facility]/pharmacy #[id number], 157.48, cm, 07/12/19 10:08:00 EDT, Height Start Date: 01/11/20 Status: OrderedVentolin HFA 108 mcg/inh inhalation aerosol with adapter 1 puffs, Inhalation, 4 times a day, PRN for wheezing, PLEASE DISPENSE VENTOLIN, NOT PROAIR, CLIENT DOES NOT TOLERATE PRO AIR, # 18 Gm, 11 Refills, Maintenance, 01/11/20 8:57:00 EDT, Aerosol, [facility]/pharmacy #[id number], 157.48, cm, 07/12/19 10:08:00 EDT, Height [...] Active Snoring symptom(Confirmed)7 2011 Active 1per pulm [id number]/p Right ear surg 12/20103h/o hearing loss, rt side4 chronic, Rt, seen by ENT5s/p forcepts [id number] on 2010 [id number] to severe on 2011 sleep study Vital Signs Most recent to oldest [Reference Range]: 1 Height 157.48 cm (07/18/20 11:40 AM) Pulse Rate [55-90 bpm] 74 bpm (07/18/20 11:40 AM) Blood Pressure [90-138/55-84 mm Hg] 164/76 mm Hg *H* (07/18/20 11:40 AM) Respiratory Rate [16-30 br/min] 14 br/min *L* (07/18/20 11:40 AM) Temperature [96.8-100.4 DegF] 98.7 DegF (07/18/20 11:40 AM) Blood pressure sites Arm, right (07/18/20 11:40 AM) Temperature Route Temporal (07/18/20 11:40 AM) Social History Social History Type Response Smoking Status Light tobacco smoker entered on: 11/23/13 Sex
--- OUTSIDE RECORDS SUMMARY | 2022-06-29 00:03 | XMS_ITS | Continuity of Care Document ---
:1960 Author Organization [facility] Address [address] [place] [address]- Care Team Providers Name Role Phone Cam BAÑUELOS, Aarti Arndt Primary Care Physician Encounter [facility] Date(s): 05/28/20 - 06/27/20 [facility] [address] [place] [address]- [facility] Allergies, Adverse Reactions, Alerts Substance [...] (Td)7 12/19/09 Given 1Result Comment: [06/08/2013] Flulaval [id number]. VIS in [place] [id number] Note: VIS [id number] Note: VIS GIVEN VIS DATE 04/14/[id number] Note: VIS GIVEN 04/29/10 [id number] Note: vis [id number] Note: vis 04/287Admin Note: vis 03/25 Medications albuterol 0.083% inhalation solution 3 mL = 2.5 mg, Inhalation, 2 times a day, PRN Wheezing/Shortness of Breath, # 180 each, 3 Refills, Maintenance, 01/11/20 8:57:00 EDT, Inhalation Solution, [facility]/pharmacy #[id number], 157.48, cm, 07/12/19 10:08:00 EDT, Height Start Date: 01/11/20 Stop Date: 01/05/21 Status: Orderedbaclofen 10 mg oral tablet 10 mg, 1, tablet, By Mouth, 2 times a day, for back pain, # 14 tablet, Refills 1, Tot. Refills 1, Maintenance, 03/29/20 16:40:00 EDT, Route to Pharmacy Electronically, [facility]/pharmacy #[id number], 157.48, cm, 07/12/19 10:08:00 EDT, Height Start Date: 03/29/20 Stop Date: 04/12/20 Status: Orderedcapsaicin 0.025% topical cream 1 application, Topically, 2 times a day, avoid contact with face and eyes, # 45 Gm, 5 Refills, Maintenance, 01/11/20 8:57:00 EDT, Cream, [facility]/pharmacy #[id number], instructions in [place], 1 application Topically 2 times a day,Instr:avoid contact with face a... Start Date: 01/11/20 Status: OrderedClaritin 10 mg oral tablet 10 mg, 1, tablet, By Mouth, Daily, Label in [place], # 90 tablet, Refills 3, Tot. Refills 3, Maintenance, 01/11/20 8:58:00 EDT, Route to Pharmacy Electronically, [facility]/pharmacy #[id number], 157.48, cm, 07/12/19 10:08:00 EDT, Height Start Date: 01/11/20 Stop Date: 01/05/21 Status: Ordereddocusate-senna 50 mg-187 mg oral tablet 2 tablet, By Mouth, Daily at bedtime, PRN Constipation, # 60 tablet, 11 Refills, Maintenance, 05/30/20 11:37:00 EDT, Tablet, [facility]/pharmacy #[id number], 2 tablet By Mouth Daily at bedtime,PRN:Constipation, 157.48, cm, 05/30/20 11:02:00 EDT, Height Start Date: 05/30/20 Status: OrderedFLUoxetine 20 mg oral capsule 20 mg, 1, capsule, By Mouth, Daily, # 90 capsule, Refills 3, Tot. Refills 3, Maintenance, 01/11/20 8:57:00 EDT, Route to Pharmacy Electronically, [facility]/pharmacy #[id number], 157.48, cm, 07/12/19 10:08:00 EDT, Height Start Date: 01/11/20 Status: OrderedFreestyle Lite Monitor See Instructions, # 1 each, Maintenance, Dx: dm2, 1-2 times daily checks, 07/12/19 11:21:40 EDT, Compound Start Date: 07/12/19 Status: Orderedgabapentin 600 mg oral tablet 1 tablet = 600 mg, By Mouth, 3 times a day, # 90 tablet, 2 Refills, Maintenance, 05/02/20 9:12:00 EDT, Tablet, [facility]/pharmacy #207, note increased dose, 157.48, cm, 07/12/19 10:08:00 EDT, Height Start Date: 05/02/20 Status: Orderedibuprofen 600 mg oral tablet 600 mg, 1, tablet, By Mouth, 3 times a day, PRN, for 30 days, # 90 tablet, Refills 1, Tot. Refills 1, Acute 08/26/20 8:27:00 EST, Pain , Mild, 06/27/20 8:27:00 EDT, Route to Pharmacy Electronically, [facility]/pharmacy #[id number], Enteric coated if possible pleas... Start Date: [...] 5 Refills, Maintenance, 05/02/20 9:17:00 EDT, Film, [facility]/pharmacy #[id number], 1 patch Topically Daily,PRN:Pain , Mild,Instr:remove after 12 hours, 157.48, cm, 07/12/19 10:08:00 E... Start Date: 05/02/20 Status: Orderedlisinopril 5 mg oral tablet 5 mg, 1, tablet, By Mouth, Daily, to protect kidneys, # 90 tablet, Refills 3, Tot. Refills 3, Maintenance, 05/02/20 9:22:00 EDT, Route to Pharmacy Electronically, [facility]/pharmacy #207, 157.48, cm, 07/12/19 10:08:00 EDT, Height Start Date: 05/02/20 Status: OrderedmetFORMIN 750 mg oral tablet, extended release 1 tablet = 750 mg, By Mouth, Daily, # 30 tablet, 11 Refills, Maintenance, 01/11/20 8:57:00 EDT, ER Tablet, [facility] #[id number], 157.48, cm, 07/12/19 10:08:00 EDT, Height Start Date: 01/11/20 Status: OrderedMiraLax oral powder for reconstitution = 17 Gm, By Mouth, Daily, dissolve in water before taking, # 527 Gm, 1 Refills, Maintenance, 01/11/20 8:59:00 EDT, REC Powder, [facility]/pharmacy #207, 17 Gm By Mouth Daily,Instr:dissolve in water before taking, 157.48, cm, 07/12/19 10:08:00 EDT, Height Start Date: 01/11/20 Status: Orderedomeprazole 20 mg oral enteric coated capsule 1 capsule = 20 mg, By Mouth, Daily, # 90 capsule, 1 Refills, Maintenance, 04/08/20 13:48:00 EDT, EC Capsule, [facility]/pharm[facility] #207, 157.48, cm, 07/12/19 10:08:00 EDT, Height Start Date: 04/08/20 Status: OrderedoxyCODONE 5 mg oral tablet 5 mg, 1, tablet, By Mouth, 3 times a day, for 28 days, spinal nerve root compression, # 84 tablet, Refills 0, Tot. Refills 0, Acute 07/25/20 10:06:00 EST, 06/27/20 10:06:00 EDT, Route to Pharmacy Electronically, [facility] #[id number], Partial fill upon p... Start Date: 06/27/20 Stop Date: 07/25/20 Status: Orderedsimvastatin 20 mg oral tablet 20 mg, 1, tablet, By Mouth, Daily at bedtime, # 30 tablet, Refills 11, Tot. Refills 11, Maintenance,01/11/20 8:57:00 EDT, [id number] 157.48, cm, 07/12/19 10:08:00 EDT, Height Start Date: 01/11/20 Status: OrderedsitaGLIPtin 100 mg oral tablet 1 tablet = 100 mg, By Mouth, Daily, # 30 tablet, 11 Refills, Maintenance, 01/11/20 8:57:00 EDT, Tablet, [facility]/pharm[facility] #[id number], 157.48, cm, 07/12/19 10:08:00 EDT, Height Start Date: 01/11/20 Status: OrderedVentolin HFA 108 mcg/inh inhalation aerosol with adapter 1 puffs, Inhalation, 4 times a day, PRN for wheezing, PLEASE DISPENSE VENTOLIN, NOT PROAIR, CLIENT DOES NOT TOLERATE PRO AIR, # 18 Gm, 11 Refills, Maintenance, 01/11/20 8:57:00 EDT, Aerosol, [facility]/pharm[facility] #[id number], 157.48, cm, 07/12/19 10:08:00 EDT, [...] Snoring symptom(Confirmed)7 2011 Active 1per -2009 pulm [id number]/p Right ear surg 12/20103h/o hearing loss, rt side4 chronic, Rt, seen by ENT5s/p forcepts [id number] on 2010 [id number] to severe on 2011 sleep study Social History Social History Type Response Smoking Status Light tobacco smoker entered on: 11/23/13 Sex
--- OUTSIDE RECORDS SUMMARY | 2022-06-29 00:03 | XMS_ITS | Continuity of Care Document ---
:1960 Author Organization [facility] Address [address] [place] [address]- Care Team Providers Name Role Phone Cam BAÑUELOS, Aarti Arndt Primary Care Physician Encounter [facility] Date(s): 03/06/21 - 05/28/21 [facility] [address] [place] [address]- Attending Physician: Not on Staff, Attending MD Referring Physician: Aarti Levy NP Allergies, Adverse Reactions, Alerts Substance Reaction Severity [...] (Td)7 12/19/09 Given 1Result Comment: [06/08/2013] Flulaval . VIS in [place] [id number] Note: VIS [id number] Note: VIS GIVEN VIS DATE 04/14/[id number] Note: VIS GIVEN 04/29/10 [id number] Note: vis [id number] Note: vis 04/287Admin Note: vis 03/25 Medications albuterol 0.083% inhalation solution 3 mL = 2.5 mg, Inhalation, 2 times a day, PRN Wheezing/Shortness of Breath, # 180 each, 3 Refills, Maintenance, 04/25/21 10:01:00 EDT, Inhalation Solution, [facility]/pharmacy #[id number], 157.48, cm, 03/06/21 9:17:00 EDT, Height, 57.73, kg, 07/19/20 15:56:00 EDT,... Start Date: 04/25/21 Stop Date: 04/20/22 Status: OrderedArtificial Tears preserved solution 1 drops, Eyes, Both, 2 times a day, PRN for dry eyes, # 30 mL, 1 Refills, Maintenance, 10/02/20 13:31:00 EST, Solution, [facility]/pharmacy #[id number], Partial fill upon patient request if the prescription is for a schedule II opioid drug., 1 drops Eyes, Both 2 t... Start Date: 10/02/20 Status: Orderedcapsaicin 0.025% topical cream 1 application, Topically, 2 times a day, avoid contact with face and eyes, # 45 Gm, 5 Refills, Maintenance, 04/25/21 10:01:00 EDT, Cream, [facility]/pharmacy #[id number], instructions in Nigerian, 1 application Topically 2 times a day,Instr:avoid contact with face... Start Date: 04/25/21 Status: OrderedClaritin 10 mg oral tablet 10 mg, 1, tablet, By Mouth, Daily, Label in [place], # 90 tablet, Refills 3, Tot. Refills 3, Maintenance, 04/25/21 10:01:00 EDT, Route to Pharmacy Electronically, [facility]/pharmacy #[id number], 157.48, cm, 03/06/21 9:17:00 EDT, Height, 57.73, kg, 07/19/20 15:56:... Start Date: 04/25/21 Stop Date: 04/20/22 Status: Ordereddocusate-senna 50 mg-187 mg oral tablet 2 tablet, By Mouth, Daily at bedtime, PRN Constipation, # 60 tablet, 11 Refills, Maintenance, 04/25/21 10:03:00 EDT, Tablet, [facility]/pharmacy #[id number], 2 tablet By Mouth Daily at bedtime,PRN:Constipation, 157.48, cm, 03/06/21 9:17:00 EDT, Height, 57.73, kg,... Start Date: 04/25/21 Status: OrderedFLUoxetine 20 mg oral capsule 20 mg, 1, capsule, By Mouth, Daily, # 90 capsule, Refills 3, Tot. Refills 3, Maintenance, 04/25/21 10:01:00 EDT, Route to Pharmacy Electronically, [facility]/pharmacy #[id number], 157.48, cm, 03/06/21 9:17:00 EDT, [...] 2 Refills, Maintenance, 05/02/20 9:12:00 EDT, Tablet, [facility]/pharmacy #[id number], note increased dose, 157.48, cm, 07/12/19 10:08:00 EDT, Height Start Date: 05/02/20 Status: Orderedhydrocortisone 2.5% topical cream 1 application, Topically, 3 times a day, apply to rash on neck. instr honduran, # 20 Gm, 0 Refills, Maintenance, 04/28/21 19:30:00 EDT, Cream, [facility]/pharmacy #[id number], Partial fill upon patient request if the prescription is for a schedule II opioid drug.,... Start Date: 04/28/21 Status: OrderedLantus Solostar Pen 100 units/mL subcutaneous solution = 10 units, Subcutaneous Injection, Daily, # 10 mL, 11 Refills, Maintenance, 09/09/20 17:43:00 EST, Solution, [facility]/pharmacy #[id number], Nigerian label please, 157.48, cm, [...] 04/23/21 13:17:00 EDT, Route to Pharmacy Electronically, [facility]/pharmacy #[id number], 157.48, cm, 03/06/21 9:17:00 EDT, Height, 57.73, kg, 07/19/20 15:56... Start Date: 04/23/21 Status: OrderedmetFORMIN 500 mg oral tablet 1 tablet = 500 mg, By Mouth, 2 times a day, # 60 tablet, 5 Refills, Maintenance, 04/25/21 10:02:00 EDT, Tablet, [facility]/pharmacy #[id number], dose change 08/09/20, 157.48, cm, 03/06/21 9:17:00 EDT, Height, 57.73, kg, 07/19/20 15:56:00 EDT, Dry Weight Start Date: 04/25/21 Status: Orderedmultivitamin Multiple Vitamins oral capsule 1 capsule, By Mouth, Daily, # 90 capsule, 3 Refills, Maintenance, 03/06/21 10:22:00 EDT, Capsule, [facility]/pharmacy #[id number], Partial fill upon patient request if the prescription is for a schedule II opioid drug., 1 capsule By Mouth Daily, 157.48, cm, ... Start Date: 03/06/21 Status: Orderedmupirocin 2% topical ointment 1 application, Topically, 2 times a day, apply to vulvar bump only. instr honduran, # 15 Gm, 0 Refills, Maintenance, 02/25/21 16:46:00 EDT, Ointment, [facility]/pharmacy #[id number], Partial fill upon patient request if the prescription is for a schedule II opioid... Start Date: 02/25/21 Stop Date: 03/11/21 Status: Orderedomeprazole 20 mg oral enteric coated capsule 1 capsule = 20 mg, By Mouth, Daily, # 90 capsule, 1 Refills, Maintenance, 04/28/21 19:29:00 EDT, EC Capsule, [facility]/pharmacy #[id number], 157.48, cm, 04/28/21 17:35:00 EDT, Height, 57.73, kg, 07/19/20 15:56:00 EDT, Dry Weight Start Date: 04/28/21 Status: OrderedPen [place], 30 G x 8 mm BD Ultra [...] Maintenance,04/25/21 10:01:00 EDT, Route to Pharmacy Electronically, [facility]/pharmacy #[id number], 157.48, cm, 03/06/21 9:17:00 EDT, Height, 57.73, kg, 07/19/20 15:56:00 ED... Start Date: 04/25/21 Status: OrderedsitaGLIPtin 100 mg oral tablet 1 tablet = 100 mg, By Mouth, Daily, # 30 tablet, 11 Refills, Maintenance, 04/25/21 10:01:00 EDT, Tablet, [facility]/pharmacy #[id number], 157.48, cm, 03/06/21 9:17:00 EDT, Height, 57.73, kg, 07/19/20 15:56:00 EDT, Dry Weight Start Date: 04/25/21 Status: OrderedVentolin HFA 108 mcg/inh inhalation aerosol with adapter 1 puffs, Inhalation, 4 times a day, PRN for wheezing, PLEASE DISPENSE VENTOLIN, NOT PROAIR, CLIENT DOES NOT TOLERATE PRO AIR, # 18 Gm, 11 Refills, Maintenance, 04/25/21 10:01:00 EDT, Aerosol, [facility]/pharmacy #[id number], 157.48, cm, 03/06/21 9:17:00 EDT, [...] Snoring symptom(Confirmed)7 2011 Active 1per -2009 pulm [id number]/p Right ear surg 12/20103h/o hearing loss, rt side4 chronic, Rt, seen by ENT5s/p forcepts [id number] on 2010 [id number] to severe on 2011 sleep study Social History Social History Type Response Smoking Status Light tobacco smoker entered on: 11/23/13 Sex
[2022-06-29] MEDS: Acetaminophen 325 MG TABLET 650 MG PO (00:10)
--- NOTE | 2022-06-29 00:14 | PC.NURSE ---
pt a&ox3, vss, medicated per provider order. tech at bedside drawing labs. no new orders at this time.
[2022-06-30 13:18] LABS: Lyme Abs Screen <0.90 index
== END 2022-06-29 00:27 | disposition home or self-care (01) ==
PROVIDERS: Nurse Practitioner Family; Emergency Provider Emergency Medicine; PCP Nurse Practitioner Family
DX: A26.0 Cutaneous erysipeloid (principal); A69.20 Lyme disease, unspecified; R51.9 Headache, unspecified; Z79.899 Other long term (current) drug therapy
CPT/HCPCS: 36415; 80053; 85025; 86617; 86618; 99283

== ENCOUNTER 2023-07-28 14:05 | Emergency (ER) | payer OTHER, SELFPAY ==
--- NOTE | 2023-07-28 14:32 | ED_ITS ---
HPI - General Adult General Chief complaint: General Medical Stated complaint: Sore throat/R Ear pain Time Seen by Provider: 07/28/23 17:01 Source: patient and inset cutter Mode of arrival: ambulatory Limitations: no limitations History of Present Illness HPI narrative: 63 yo female with PMH of HTN, DM here with c/o sore throat and R ear pain since Wednesday then in the night had intense ear pain and she felt a pop and drainage from R ear. She reports a prior surgery several years in R eye but is not sure what it as. No fevers, n/v. MD complaint: sore throat, ear pain Onset (ago): day(s) (4) Location: mouth Radiation: non-radiation Severity: moderate Quality: aching Pain Consistency: constant Relieving factors: none Exacerbating factors: other (swallowing, touching ear) Associated symptoms: denies other symptoms Treatments prior to arrival: none Related Data Previous Rx's Medication Instructions Recorded doxycycline monohydrate 100 mg 100 mg PO BID 14 days #28 caps 06/29/22 capsule azithromycin 250 mg tablet 250 mg PO DAILY 4 days #4 tabs 07/28/23 ofloxacin 0.3 % ear drops 10 drp otic (ear) right DAILY 7 07/28/23 days #5 mL Allergies Allergy/AdvReac Type Severity Reaction Status Date / Time aspirin [Aspirin] Allergy Unknown STOMACH Verified 06/28/22 18:33 UPSET ibuprofen [From MOTRIN] Allergy Unknown epigastric Verified 06/28/22 18:33 upset tramadol AdvReac Vomiting Verified 07/28/23 14:32 From Pen-Vee K Allergy Mild RASH Uncoded 06/06/20 17:52 Review of Systems Review of Systems: Constitutional : No Fever, No Chills ENT/Mouth : No swallowing difficulty, no change in voice, pos sore throat, pos ear pain, pos ear drainage Eyes: No Eye Pain, No Swelling Cardiovascular : No Chest Pain, No SOB Respiratory : No Cough, No Sputum Gastrointestinal : No Nausea, No Vomiting, No Diarrhea Genitourinary : No Dysuria Musculoskeletal : No Myalgias Skin : No rash Neuro : No Weakness, No Numbness, No Headache all other systems reviewed are negative Physical Exam ED Vital Signs: Vital Signs - 24 hr 07/28/23 14:33 Temperature 98.4 F Pulse Rate 73 Respiratory Rate 18 Blood Pressure 132/62 Pulse Oximetry 100 Oxygen Delivery Method Room Air BMI result Body Mass Index 30.1 Appearance: Alert. Oriented X3. No acute distress. Eyes: Pupils equal, round and reactive to light. ENT: Pharynx mild erythema, uvula midline, no exudates, R TM small anterior perforation bloody drainage noted but dried, effusion seen, erythema of TM Neck: Normal inspection. Neck supple. CVS: Normal heart rate and rhythm. Pulses normal. Respiratory: No respiratory distress. Breath sounds normal. Abdomen: Soft and non-tender. Skin: Skin warm and dry. Normal skin color. Extremities: No lower extremity edema. Neuro: Oriented X 3. No motor deficit. No sensory deficit. Course Course Course Narrative: This is an RME: Additional HPI, ROS, PE not included below will be deferred to primary provider. This is a 9-jitr-bye-female presenting to the ER with complaints of right ear pain and sore throat x 5 days. R TM irregular and erythematous, Had r ear surgery 7 years ago as the infection traveled to [facility] . Reporting drainage from the right ear. OP mildly erythematous. Plan: Strep, COVID/FLU/rsV Medical Decision Making Medical Decision Making [facility] Narrative: 63 yo female with HTN, DM here with sore throat and ear pain with drainage - at this time throat is not impressive on exam no concern for deeper space infection, strep and viral swabs negative. R TM shows AOM and small perforation given allergies will start on zpak and ear drops no water in ear and follow up with PCP, no mastoid ttp no signs of deeper space infection Differential Diagnosis Differential Diagnoses: The differential diagnosis associated with the presentation includes strep throat, AOM, TM perforation Lab Data [facility] Lab Attestation statement: I reviewed the patient's lab results. Labs: Lab Results 07/28/23 Range/Units 14:54 Influenza Type A (PCR) NEGATIVE (Negative) Influenza Type B (PCR) NEGATIVE (Negative) RSV RNA Qual (PCR) NEGATIVE (Negative) SARS-CoV-2 RNA (RT-PCR) NEGATIVE (Negative) S. pyogenes GrpA DALLIN Negative (Negative) External Record Review External record reviewed: Inpatient record Prescription Management I considered prescription management with: Antibiotic and Other Discharge Plan Discharge Clinical Impression: Otitis media Qualifiers: Otitis media type: suppurative Chronicity: acute Laterality: right Recurrence: non-recurrent Spontaneous tympanic membrane rupture: with spontaneous rupture Qualified Code(s): H66.011 - Acute suppurative otitis media with spontaneous rupture of ear drum, right ear Patient Disposition: Home, Self-Care Instructions: Ruptured Eardrum (ED), Ear Infection (ED) Additional Instructions: return for worsening symptoms, fevers, vomiting, no water in ear for 1 week your doctor needs to check it to make sure it is healing in the next week. you may need to be referred to an ears nose and throat doctor. take a probiotic while on antibiotics. Regrese si los s?ntomas empeoran, fiebre, v?mitos o falta de agua en el o?do joce 1 semana. Renee m?dico debe revisarlo para asegurarse de que est? sanando en la pr?xima semana. Es posible que deba ser remitido a un otorrinolaring?logo. katie un probi?con mientras lyndon antibi?ticos. Prescriptions: New azithromycin 250 mg tablet 250 mg PO DAILY 4 Days Qty: 4 0RF Rx Instructions: start on day 2 of therapy ofloxacin 0.3 % drops 10 drp otic (ear) right DAILY 7 Days Qty: 5 0RF No Action doxycycline monohydrate 100 mg capsule 100 mg PO BID 14 Days Qty: 28 0RF Referrals: Daniella Sanchez MD [Primary Care Provider] - 1 week Print Language: Swazi
[2023-07-28 14:33] VITALS: BP 132/62; PULSE 73; RESP 18; TEMP 36.9; O2SAT 100; BMI 30.1
[2023-07-28 15:08] LABS: IDNOW Serial# 08D9AD1C; Strep A Nucleic Acid Negative (Negative)
[2023-07-28 15:46] LABS: Influenza A PCR NEGATIVE (Negative); Influenza B PCR NEGATIVE (Negative); Resp Syncy Virus RNA Qual PCR NEGATIVE (Negative); SARS COV2 PCR INHOUSE NEGATIVE (Negative)
[2023-07-28] MEDS: Azithromycin 500 MG TABLET PO (17:23)
== END 2023-07-28 17:29 | disposition home or self-care (01) ==
LOC: HO.ED 17:28
PROVIDERS: Physician Assistant Medical; Emergency Provider Emergency Medicine; PCP Internal Medicine
DX: H66.011 Acute suppurative otitis media with spontaneous rupture of ear drum, right ear (principal); J02.9 Acute pharyngitis, unspecified; H92.01 Otalgia, right ear; Z20.822 Contact with and (suspected) exposure to COVID-19; Z20.828 Contact with and (suspected) exposure to other viral communicable diseases
CPT/HCPCS: 0241U; 87651; 99282; 99283

== ENCOUNTER 2025-06-21 13:36 | Emergency (ER) | payer OTHER, SELFPAY ==
[2025-06-21 13:43] VITALS: BP 154/81; PULSE 69; RESP 18; TEMP 37; O2SAT 100; BMI 23.5
--- NOTE | 2025-06-21 14:40 | ED_ITS ---
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 She notes she has had this before and usually responds to a pill and cream but this time the cream brooke. It looks like she has been on hydrocortisone and triamcinolone but no relief. She denies sexual activity. No fevers no vomiting. She states she had itching in vagina last night. She has some itchy bumps near her ears as well. No rash, blisters. just saw PCP who started fluconazole, hydrocortisone, triamcinolone at 06/15/25 which is causing more pain. she didn't understand how to take fluconazole and took 300mg on day one. no improvement of symptoms. MD complaint: other (vaginal itching) Onset (ago): day(s) (12) Location: buttocks and genitals Severity: moderate Quality: pruritic Relieving factors: none Exacerbating factors: none Context: other Associated symptoms: denies other symptoms Treatments prior to arrival: corticosteroid Related Data Previous Rx's ?Medication ?Instructions ?Recorded doxycycline monohydrate 100 mg 100 mg PO BID 14 days # 28 caps 06/29/22 capsule azithromycin 250 mg tablet 250 mg PO DAILY 4 days #4 t abs 07/28/23 ofloxacin 0.3 % ear drops 10 drp otic (ear) right SIMONA Y 7 07/28/23 days #5 mL clotrimazole 1 % vaginal cream 1 appful vaginal BEDTIM E 7 days 06/21/25 #45 grams fluconazole 150 mg tablet 150 mg PO Q3D 2 doses #2 tab s 06/21/25 loratadine 10 mg tablet (Claritin) 10 mg PO DAILY PRN allergic 06/21/25 symptoms #30 tabs prednisone 20 mg tablet 20 mg PO DAILY 3 days #3 tab s 06/21/25 Allergies Allergy/AdvReac Type Severity Reaction Status Date / Time aspirin (Aspirin) Allergy Unknown STOMACH Verified 06/21/25 13:44 UPSET ibuprofen (From MOTRIN) Allergy Unknown epigastric Verified 06/21/25 13:44 upset tramadol AdvReac Vomiting Verified 06/21/25 13:44 From Pen-Vee K Allergy Mild RASH Uncoded 06/21/25 13:44 Review of Systems Review of Systems: Yes all other systems are reviewed and are negative [facility] Past Medical History Attestation statement: The following information was validated with the patient. Source: old records reviewed Medical History Hypothyroidism GERD (gastroesophageal reflux disease) HTN (hypertension) Diabetes HLD (hyperlipidemia) Social History Social History (Updated 06/21/25 @ 14:42 by Brianne Alfonso DO) Patient Tobacco Use Status: Former Tobacco user Advance Directives: No Advance Directives Information Provided: Yes Physical Exam Vital Signs: Vital Signs: Last Vital Signs Temp 98.6 F 06/21/25 13:43 Pulse 69 06/21/25 13:43 Resp 18 06/21/25 13:43 BP 154/81 H 06/21/25 13:43 Pulse Ox 100 06/21/25 13:43 O2 Del Method Room Air 06/21/25 13:43 BMI result Body Mass Index 23.5 Appearance: Alert. Oriented X3. No acute distress. Eyes: Pupils equal, round and reactive to light. ENT: Pharynx normal. Neck: Normal inspection. CVS: Pulses normal. Respiratory: No respiratory distress. Abdomen: Soft and nontender. : no lesions noted no vesicles, some excoriation of labia but no signs of infection, no warts seen, no lesions in rectal area, no signs of fourniers. Skin: Skin warm and dry. Normal skin color. Extremities: No lower extremity edema. Neuro: Oriented X 3. No motor deficit. No sensory deficit. Medical Decision Making Medical Decision Making MDM Narrative: 65 yo female with PMH of HTN, HLD, hypothyroidism, DM, GERD here with c/o yeast vaginitis now with worsening pain and burning. She did the diflucan wrong as she didn't understand. AT this time all steroids stopped for the genital area and buttocks. Will trial diflucan appropriately and use clotrimazole vaginally. She has no systemic symptoms. No concers for STI or PID Differential Diagnosis Differential Diagnoses: The differential diagnosis associated with the presentation includes yeast vaginitis Admission/Observation Consideration of admission/observation: Escalation of care including admission/observation considered stable for outpatient care removed all steroid creams External Record Review External record reviewed: Outpatient record and Prior outpatient labs Prescription Management I considered prescription management with: Other Discharge Plan Discharge Clinical Impression: Yeast vaginitis Patient Disposition: Home, Self-Care Instructions: Yeast Infection (ED) Additional Instructions: no more creams take first pill today and next on Wednesday take claritin as well for allergies take prednisone with food monitor blood sugars closely if not better after 2nd pill then return for further work up return for any worsening symptoms or concerns. Prescriptions: New fluconazole 150 mg tablet 150 mg PO Q3D Qty: 2 0RF Rx Instructions: may repeat second dose 72 hrs after first dose if symptoms persist clotrimazole 1 % cream 1 appful vaginal BEDTIME 7 Days Qty: 45 0RF prednisone 20 mg tablet 20 mg PO DAILY 3 Days Qty: 3 0RF loratadine [Claritin] 10 mg tablet 10 mg PO DAILY PRN (Reason: allergic symptoms) Qty: 30 0RF No Action doxycycline monohydrate 100 mg capsule 100 mg PO BID 14 Days Qty: 28 0RF azithromycin 250 mg tablet 250 mg PO DAILY 4 Days Qty: 4 0RF Rx Instructions: start on day 2 of therapy ofloxacin 0.3 % drops 10 drp otic (ear) right DAILY 7 Days Qty: 5 0RF Print Language: Japanese
[2025-06-21 15:07] VITALS: BP 154/81; PULSE 69; RESP 18; TEMP 37; O2SAT 100
--- OUTSIDE RECORDS SUMMARY | 2025-06-21 16:28 | XMS_ITS | Clinical Summary ---
Demographics Address [address] [place] [address] Home Phone Preferred Language Unknown Marital Status Unknown Jain Affiliation Unknown Race Unknown Ethnic Group Unknown Author Organization [employer] Address [address] [place] [address] Care Team Providers Care Otologist Name Role Phone Unavailable Primary Care Provider Unavailabl e Social History Tobacco Use Types Packs/Day Years Used Date Smoking Tobacco: Never Assessed Comments Unknown Sex and Gender Information Value Date Recorded Sex Assigned at Not on file Legal Sex Female 3:43 PM EDT Gender Identity Not on file Sexual Orientation Not on file Plan of Treatment Health Maintenance Due Date Last Done Comments CT Colonography 1958 Colonoscopy 1958 Colorectal Cancer Screening 1958 Depression Screening 1958 FIT DNA/Cologuard 1958 FIT 1958 FOBT 1958 Sigmoidoscopy 1958 Alcohol/Substance Use Screening 1970 Tobacco Screening 1970 COVID-19 Vaccine ( season) 2025 10/07/2023, 09/08/2022, 08/20/2021, Additional history exists Influenza Vaccine (#1) 2025 , 07/24/2022, 07/17/2021 Mammogram 06/06/2026 06/06/2024 DTaP/Tdap/Td Vaccines (2 - Td or Tdap) 11/27/2032 11/27/2022 RSV Patients and Patients Aged 60 years or older (1 - 1-dose 75+ series) 2033 Zoster Vaccines Completed 07/21/2022, 05/15/2022 Pneumococcal Vaccine: 50+ Years Completed 12/03/2023 HIB Vaccines Aged Out No longer eligi ble based on patient's age to complete this topic HPV Vaccines Aged Out No longer eligi ble based on patient's age to complete this topic Hepatitis A Vaccines Aged Out No long er eligible based on patient's age to complete this topic Hepatitis B Vaccines Aged Out No long er eligible based on patient's age to complete this topic IPV Vaccines Aged Out No longer eligi ble based on patient's age to complete this topic Meningococcal B Vaccine Aged Out No l onger eligible based on patient's age to complete this topic Meningococcal Vaccine Aged Out No earnestine glendy eligible based on patient's age to complete this topic RSV under 20 months Aged Out No longe r eligible based on patient's age to complete this topic Rotavirus Vaccines Aged Out No longer eligible based on patient's age to complete this topic Procedures Procedure Name Priority Date/Time Associated Diagnosis Comments BI MAMMOGRAM SCREENING TOMOSYNTHESIS BILATERAL Routine 06/06/2024 12:58 PM EDT from Last 3 Months or Most Recently Relevant to Health Maintenance Results * BI Mammogram Screening Tomosynthesis Bilateral (06/06/2024 12:58 PM EDT) Anatomical Region Laterality Modality Breast Bilateral Mammography 06/06/2024 12:5 8 PM EDT Narrative 06/06/2024 5:08 PM EDT PROCEDURE: MM Digital Mammo Screening INDICATION: Screening for breast cancer. No known palpable abnormalities. COMPARISON: Priors dating back to 05/03/2021 TECHNIQUE: Full-field digital CC and MLO 3D tomosynthesis images of both breasts were acquired. Computer-aided detection (CAD) was utilized in the interpretation of this study. DENSITY: There are scattered areas of fibroglandular density. FINDINGS: No suspicious masses, suspicious microcalcifications, or areas of architectural distortion are seen in either breast to suggest malignancy. IMPRESSION: No mammographic evidence of malignancy. RECOMMENDATION: Annual mammographic screening BI-RADS: 1 (Negative) Lay letter mailed to patient WSN: [id number] Ordering Physician: Aarti Levy Dictated By: Eve Cuadra MD Dictated Date/Time: 06/06/24 5:05 pm Reviewed By: Eve Cuadra MD Signed By: Eve Cuadra MD Signed Date/Time: 06/06/24 5:05 pm Transcribed By: MERI Planning Associate Date/Time: 06/06/24 5:02 pm Birads: Procedure Note Donotuseinterpreter, Image - 09/17/2024 PROCEDURE: MM Digital Mammo Screening INDICATION: Screening for breast cancer. No known palpableabnormalities. COMPARISON: Priors dating back to 05/03/2021 TECHNIQUE: Full-field digital CC and MLO 3D tomosynthesis images of bothbreasts were acquired. Computer-aided detection (CAD) was utilized in theinterpretation of this study. DENSITY: There are scattered areas of fibroglandular density. FINDINGS: No suspicious masses, suspicious microcalcifications, or areasof architectural distortion are seen in either breast to suggestmalignancy. IMPRESSION: No mammographic evidence of malignancy. RECOMMENDATION: Annual mammographic screening BI-RADS: 1 (Negative) Lay letter mailed to patient WSN: [id number] Ordering Physician: Aarti Levy Dictated By: Eve Cuadra MD Dictated Date/Time: 06/06/24 5:05 pm Reviewed By: Eve Cuadra MD Signed By: Eve Cuadra MD Signed Date/Time: 06/06/24 5:05 pm Transcribed By: MERI Planning Associate Date/Time: 06/06/24 5:02 pm Birads: us Aarti Levy STERILE SUPERVISOR IMG BI PROCEDURES Final Result from Last 3 Months or Most Recently Relevant to Health Maintenance
--- OUTSIDE RECORDS SUMMARY | 2025-06-21 16:28 | XMS_ITS | Data Portability ---
Author Organization [place] - [facility], Allergy Address [address] [place] [id number] Care Team Providers Care Engraving Supervisor Name Role Phone HUSSEIN FRAGOSO Primary Care Provider [phone] Assessment Encounter Date Assessment Date Assessment LastModified by Organization Details LastModified Time 04/06/2024 04/06/2024 The patient continues to exhibit a rather deep pars flaccida retraction pocket associated with a scutum defect on the right. A squamous debris plug was disimpacted from the retraction pocket today which she tolerated well. No signs of inflammation or infection. In light of the fact that the retraction pocket appeared to have been completely evacuated during today's cleaning, I would recommend a simple observation for now. If the patient does develop recurrent otorrhea or a debris plug that is recalcitrant removal, then we may need to consider surgical intervention. Patient is in agreement with this plan. Follow-up in 9 months. Not available 04/06/2024 10:36:00 10/31/2024 10/31/2024 The patient continues to exhibit a rather deep pars flaccida retraction pocket associated with a scutum defect on the right. A squamous debris plug was disimpacted from the retraction pocket today which she tolerated well. No signs of inflammation or infection. In light of the fact that the retraction pocket appeared to have been completely evacuated during today's cleaning, I would recommend a simple observation for now. If the patient does develop recurrent otorrhea or a debris plug that is recalcitrant removal, then we may need to consider surgical intervention. Patient is in agreement with this plan. Follow-up in 7 months. We did discuss her audiometric testing. She does have a mixed hearing loss in the right ear which could have negative effect on her day-to-day hearing. She does not think that is bothering her very much and has no interest in pursuing amplification options. This will always be available for her in the future if she changes her mind. [email or web address] Not available 10/31/2024 14:22:46 Plan of Treatment Reminders Order Date Submit Date Provider Last Modified By Organization Details Last Modified Time Details Appointments Establish ed 10 2024 01:30P M MICHAEL ZHENG MD Not available Not available Not available Lab None recorded. Referral None recorded. Procedures None recorded. Surgeries None recorded. Imaging None recorded. Medication Orders None recorded. Patient TargetsNo targets recorded. Patient InstructionsNo instructions recorded. Reason for Referral None Reported. Results Created Date Observation Date Name Description Value Unit Range Abnormal Flag Note LastModifiedBy Organization Detail LastModifiedTime 05/10/20 24 10/16/2021 imagi ng/di agnos tic resul t No observ ation record ed. [email or web address] Not Available 18:04:26 10/31/19 25 audio gram No observ ation record ed. [email or web address] Not Available 2024 14:46:18 Result Notes None recorded. Problems Name Problem SNOMED Code Status Onset Date Resolution Date Notes Provider Name and Address Organization Details Recorded Time Dysfuncti on of eustachia n tube 50339915 Active 2014 Eustachia n tube dysfuncti on; Note: Date Diagnosed : 09/28/2014 9:45 AM (381.81) Not Available [facility] 4 02:16:54 Infective otitis externa 35352339 Active 2014 Acute otitis externa; Note: Date Diagnosed : 05/22/2015 3:45 PM (380.10) , resolved Not Available [facility] 4 02:18:01 Impacted cerumen 68886469 Active 2014 Impacted cerumen; Note: Date Diagnosed : 05/22/2015 4:32 PM (380.4) Not Available [facility] 4 02:17:53 Otalgia 18437880 Active 2014 Otalgia; Note: Date Diagnosed : 06/07/2015 11:25 AM (388.70) Not Available [facility] 4 02:17:07 Unilatera l sensorine ural hearing loss with unrestric eduardo hearing on the contralat eral side Active 2014 Sensorine ural HL, unilatera l; Note: Date Diagnosed : 06/13/2015 3:24 PM (389.15) Not Available [facility] 4 02:17:11 Mixed conductiv e AND sensorine ural hearing loss 29657536 Active 2014 Mixed conductiv e and sensorine ural hearing loss, unspecifi ed; Note: Date Diagnosed : 06/13/2015 3:25 PM (H90.8) Not Available [facility] 4 02:17:37 Sensorine ural hearing loss 47711169 Active 2014 Unspecifi ed sensorine ural hearing loss; Note: Date Diagnosed : 06/13/2015 3:25 PM (H90.5) Not Available [facility] 4 02:17:50 Unilatera l mixed conductiv e and sensorine ural hearing loss with unrestric eduardo hearing on the contralat eral side Active 2014 Mixed HL, unilatera l; Note: Date Diagnosed : 06/13/2015 3:24 PM (389.21) Not Available [facility] 4 02:17:32 Chronic tympaniti s 43301099 Active 2014 Chronic myringiti s without mention of otitis media; Note: Date Diagnosed : 06/13/2015 3:50 PM (384.1) Not Available [facility] 4 02:17:46 Impacted cerumen of bilateral ears 60945904235 30275 Active 2017 Impacted cerumen, bilateral ; Note: Date Diagnosed : 11/01/2017 2:40 PM (H61.23) Not Available [facility] 4 02:17:42 Disorder of right Eustachia n tube 96492574450 43750 Active 2017 Other specified disorders of Eustachia n tube, right ear; Note: Date Diagnosed : 11/01/2017 2:40 PM (H69.81) Not Available [facility] 4 02:17:40 Otalgia of right ear 3581652156 Active 2017 Otalgia, right ear; Note: Date Diagnosed : 05/12/2018 12:49 PM (H92.01) Not Available [facility] 4 02:16:59 Acute serous otitis media of right ear 09978879058 75275 Active 2017 Acute serous otitis media, right ear; Note: Date Diagnosed : 05/12/2018 12:57 PM (H65.01) Not Available [facility] 4 02:17:00 Itching of skin 560373281 Active 2019 Pruritus, unspecifi ed; Note: Date Diagnosed : 06/24/2020 12:06 PM (L29.9) Not Available [facility] 4 02:16:54 Diffuse otitis externa 53085562 Active 2020 Diffuse otitis externa, right ear; Note: Date Diagnosed : 1 1:02 PM (H60.311) Not Available [facility] 4 02:17:17 Otitis media of right ear 21695215116 39411 Active 2020 Otitis media, unspecifi ed, right ear; Note: Date Diagnosed : 1 1:02 PM (H66.91) Not Available [facility] 4 02:17:42 Mixed conductiv e and sensorine ural hearing loss of right ear 35813265474 105 Active 2021 Mixed conductiv e and sensorine ural hearing loss, unilatera l, right ear with restricte d hearing on the contralat eral side; Note: Date Diagnosed : 10/16/2021 11:57 AM (H90.A31) Not Available [facility] 4 02:17:47 Sensorine ural hearing loss in left ear 80980992237 109 Active 2021 Sensorine ural hearing loss, unilatera l, left ear, with restricte d hearing on the contralat eral side; Note: Date Diagnosed : 10/16/2021 11:57 AM (H90.A22) Not Available [facility] 4 02:17:07 Adhesive middle ear disease 2356137 Active 2021 Adhesive right middle ear disease; Note: Date Diagnosed : 10/16/2021 11:35 AM (H74.11) Not Available [facility] 4 02:17:56 Disorder of right external ear 36752741310 21457 Active 2021 Other specified disorders of right external ear; Note: Date Diagnosed : 04/02/2022 9:33 AM (H61.891) Not Available [facility] 4 02:17:54 Sensorine ural hearing loss of bilateral ears 637344549 Active 2024 Dorcas umanzor [place] - [facility] 5 13:32:21 Adhesive middle ear disease 6300348 Active 2024 MICHAEL ZHENG MD [address] [place] [address],[place] [address], [place], [address] , [facility] - [facility] 5 14:20:58 Problem Notes None recorded. Procedures Surgical History Date Name Laterality Status Provider Name and Address Organization Details Recorded Time 10/31/19 25 Debridement of Ear canal right completed MICHAEL ZHENG MD [address] [place] [address],[place] [address], [place], [address], [facility] - [facility] 10/31/2024 14:19:56 10/31/19 25 Air only Audio - 88279 completed Dorcas Bonds [place] - [facility] 10/31/2024 13:31:33 10/31/19 25 Tympanometry - 95207 completed Dorcas Bonds [place] - [facility] 10/31/2024 13:31:29 04/06/20 24 Debridement of Ear canal right completed MICHAEL ZHENG MD [address] [place] [address],[place] [address], [place], [address], [facility] - [facility] 04/06/2024 10:33:44 Imaging Results None recorded. Procedure Notes None recorded. Medical Equipment None Reported. Allergies Allergen ID Allergen Name Allergen Category Reaction Reaction Severity Criticality Documentation Date Start Date Code Code System Note Provider Name and Address Organization Details Recorded Time 72014 aspirin medicatio n other Not available Not available 02/01/2024 1191 RxNorm React ion: unkno wn, unspe cifie d;; Not Available [facility] 4 00:53:08 45222 doxycycli ne hyclate medicatio n other Not available Not available 02/01/2024 05406 RxNorm React ion: unkno wn, unspe cifie d;; Not Available [facility] 4 00:53:15 59804 tramadol Not available other Not available Not available 02/01/2024 57472 RxNorm React ion: unkno wn, unspe cifie d;; Not Available [facility] 4 00:53:29 21909 penicilli n V potassium medicatio n other Not available Not available 02/01/2024 02512 5 RxNorm React ion: unkno wn, unspe cifie d;; Not Available [facility] 4 00:53:30 Medications Name Sig Start Date Stop Date Status Note LastModified by Organization Details LastModified Time atorvasta tin 40 mg tablet TOME 1 TABLETA POR V A ORAL TODOS LOS D active Not Available Not Available No t Available metformin 500 mg tablet active Medicati on ID: [id number] B rand Name: metformi n Send Method: E-Prescr ibed Sub s Allowed: subs OK Speci al Instruct ion: TOME MARVIN TABLETA DOS VECES AL D A Medica tionGene ricName: metformi n Not Available Not Available Not Available atorvasta tin 20 mg tablet TOME 1 TABLETA POR V A ORAL TODOS LOS D active Not Available Not Available No t Available albuterol sulfate 2.5 mg/3 mL (0.083 %) solution for nebulizat ion INHALE 3 MLS POR V A ORAL 2 TIMES A DAY X 90 DAYS CUANDO SEA NECESARI O WHEEZING /SHORTNE SS OF BREATH active Not Available Not Available No t Available azithromy fredrick 250 mg tablet TAKE 1 TABLET BY MOUTH DAILY FOR 4 DAYS START ON DAY 2 OF THERAPY 04/06 completed Not Available Not Available Not Available fluconazo le 150 mg tablet TAKE 1 TABLET BY MOUTH ONCE REPEAT DOSE IF STILL HAVING SYMPTOMS IN 72 HOURS 04/06 completed Not Available Not Available Not Available FreeStyle Lancets 28 gauge USE TO TEST TWICE DAILY active Not Available Not Available No t Available gabapenti n 400 mg capsule TOME 1 C PSULA POR V A ORAL DOS VECES AL D A active Not Available Not Available No t Available levofloxa fredrick 250 mg tablet PLEASE SEE ATTACHED FOR DETAILED DIRECTIO NS 04/06 completed Not Available Not Available Not Available Vitamins B Complex capsule 2017 active Medicati on ID: [id number] D uration Value: 30 Brand Name: Vitamins B Complex Send Method: E-Prescr ibed Sub s Allowed: subs OK Speci al Instruct ion: TOME MARVIN CAPSULA POQ A DIARIO M edicatio nGeneric Name: Vitamins B Complex Not Available Not Available Not Available levothyro xine 100 mcg tablet TOME 1 TABLETA POR V A ORAL TODOS LOS D active Not Available Not Available No t Available ofloxacin 0.3 % ear drops PLACE 10 DROPS IN THE RIGHT EAR EVERY DAY FOR 7 DAYS 04/06 completed Not Available Not Available Not Available triamcino lone acetonide 0.025 % topical cream APLIQUE AL JARRETT AFECTADA DOS VECES AL D A POR 2 SEMANAS active Not Available Not Available No t Available baclofen 10 mg tablet active Medicati on ID: [id number] B rand Name: baclofen Send Method: E-Prescr ibed Sub s Allowed: subs OK Speci al Instruct ion: TOME MARVIN O DOS TABLETAS POR VIA ORAL PEDRO VECES AL PIRNCE PARA EL ESPASMO MUSCULAR CUANDO SEA NECESARI O Medica tionGene ricName: baclofen Not Available Not Available Not Available benzonata te 100 mg capsule TOME 1 C PSULA POR V A ORAL PEDRO VECES AL D A CUANDO SEA NECESARI O POR 7 D FOR COUGH active Not Available Not Available No t Available simvastat in 20 mg tablet TOME 1 TABLETA POR V A ORAL TODOS LOS D EN LA NOCHE active Not Available Not Available No t Available lisinopri l 10 mg tablet TOME 1 TABLETA POR V A ORAL TODOS LOS D active Not Available Not Available No t Available lidocaine 5 % topical patch APPLY 1 PATCH TOPICALL Y DAILY FOR 90 DAYS NEEDED FOR PAIN, MILD. REMOVE AFTER 12 HOURS active Not Available Not Available No t Available omeprazol e 20 mg capsule,d elayed release TOME 1 C PSULA POR V A ORAL TODOS LOS D active Not Available Not Available No t Available Banophen 25 mg capsule 01/12 completed Medicati on ID: [id number] D uration Value: 12 Brand Name: Banophen Send Method: E-Prescr ibed Sub s Allowed: subs OK Speci al Instruct ion: TOME MARVIN CAPSULA POR V?A ORAL DOS VECES AL D?A Medi cationGe nericNam e: Banophen Not Available Not Available Not Available ammonium lactate 12 % topical cream 01/12 completed Medicati on ID: [id number] D uration Value: 30 Brand Name: ammonium lactate Send Method: E-Prescr ibed Sub s Allowed: subs OK Speci al Instruct ion: APPLY 1 APPLICAT ION TOPICALL Y 2 TIMES A DAY,INST R:FOR DRY SKIN Med icationG enericNa me: ammonium lactate Not Available Not Available Not Available lorazepam 1 mg tablet TOME MARVIN TABLETA POR V A ORAL 1 HOUR BEFORE PROCEDUR E active Not Available Not Available No t Available ibuprofen 600 mg tablet 2017 active Medicati on ID: [id number] D uration Value: 30 Brand Name: ibuprofe n Send Method: E-Prescr ibed Sub s Allowed: subs OK Speci al Instruct ion: TAKE 1 TABLET BY MOUTH 3 TIMES A DAY,: NEEDED FOR PAIN,INS TR:WITH FO OD OR MILK Med icationG enericNa me: ibuprofe n Not Available Not Available Not Available fluocinon gayle 0.05 % topical cream active Not Available Not Available Not Available topiramat e 100 mg tablet active Medicati on ID: [id number] B rand Name: topirama te Send Method: E-Prescr ibed Sub s Allowed: subs OK Speci al Instruct ion: TAKE 1 CAPSULE AT BEDTDIME FOR 7 DAYS THEN 1 BY MOUTH TWICE A DAY, THIS REPLACES GABAPENT IN Medic ationGen ericName : topirama te Not Available Not Available Not Available losartan 100 mg tablet TOME 1 TABLETA POR V A ORAL TODOS LOS D active Not Available Not Available No t Available fluoxetin e 20 mg capsule 2017 active Medicati on ID: [id number] D uration Value: 30 Brand Name: fluoxeti ne Send Method: E-Prescr ibed Sub s Allowed: subs OK Speci al Instruct ion: TAKE 1 CAPSULE BY MOUTH DAILY Me dication GenericN kendell: fluoxeti ne Not Available Not Available Not Available ipratropi um bromide 21 mcg (0.03 %) nasal spray USE 2 SPRAYS NARES, BOTH 3 TIMES A DAY,INST R:IN EACH NOSTRIL UNTIL SYMPTOMS RESOLVE active Not Available Not Available No t Available loratadin e 10 mg tablet TOME 1 TABLETA POR V A ORAL TODOS LOS D active Not Available Not Available No t Available levothyro xine 112 mcg tablet active Not Available Not Available Not Available nabumeton e 500 mg tablet TAKE 1 TABLET BY MOUTH 2 TIMES A DAY FOR PAIN WITH FOOD active Not Available Not Available No t Available Ventolin HFA 90 mcg/actua tion aerosol inhaler active Medicati on ID: [id number] B rand Name: Ventolin HFA Send Method: E-Prescr ibed Sub s Allowed: subs OK Medic ationGen ericName : Ventolin HFA Not Available Not Available Not Available 3-Day Vaginal 2 % cream INSERT 1 APPLICAT ORFUL VAGINALL Y DAILY AT BEDTIME, X3 DAYS 04/06 completed Not Available Not Available Not Available Estrace 0.01% (0.1 mg/gram) vaginal cream 01/12 completed Medicati on ID: [id number] D uration Value: 30 Brand Name: Estrace Send Method: E-Prescr ibed Sub s Allowed: subs OK Speci al Instruct ion: INSERT 1 GRAM VAGINALL Y DAILY AT BEDTIME Medicati onGeneri cName: Estrace Not Available Not Available Not Available TobraDex 0.3 %-0.1 % eye drops,[facility] 04/06 completed Medicati on ID: [id number] D uration Value: 14 Brand Name: TobraDex Send Method: E-Prescr ibed Sub s Allowed: subs OK Speci al Instruct ion: Instill 4 drops in the right ear twice a day for 14 days Med icationG enericNa me: TobraDex Medicat ion ID: [id number] D uration Value: 14 Brand Name: TobraDex Send Method: E-Prescr ibed Sub s Allowed: subs OK Speci al Instruct ion: Instill 4 drops in the right ear twice a day for 14 days Med icationG enericNa me: TobraDex Not Available Not Available Not Available metformin ER 750 mg tablet,ex tended release 24 hr 01/12 completed Medicati on ID: [id number] D uration Value: 30 Brand Name: metformi n Send Method: E-Prescr ibed Sub s Allowed: subs OK Speci al Instruct ion: TAKE 1 TABLET BY MOUTH DAILY Me dication GenericN kendell: metformi n Not Available Not Available Not Available Alcohol Prep Pads USE DIRECTED FOR TYPE 2 DIABETES MELLITUS , TWICE DAILY CHECKS active Not Available Not Available No t Available albuterol sulfate 11/01 completed Medicati on ID: [id number] Re ason: () Brand Name: albutero l sulfate Send Method: E-Prescr ibed Sub s Allowed: subs OK Speci al Instruct ion: 2 puffs every 4 hours as needed M edicatio nGeneric Name: albutero l sulfate Not Available Not Available Not Available BD Ultra-Fin e Short Pen Needle 31 gauge x 5/16 USE ONE DAILY active Not Available Not Available No t Available fluocinol one acetonide oil 0.01 % ear drops 2 drop 01/12 completed Medicati on ID: [id number] P rescribe d By Name: Michael Zheng M.D. Bra eliana Name: fluocino lone acetonid e oil Send Method: E-Prescr ibed Sub s Allowed: subs OK Medic ationGen ericName : fluocino lone acetonid e oil Not Available Not Available Not Available Januvia 100 mg tablet TOME 1 TABLETA POR V A ORAL TODOS LOS D active Not Available Not Available No t Available FreeStyle Lite Strips USE DIRECTED FOR TYPE 2 DIABETES MELLITUS , ON INSULIN, UP TO 3 TIMES/DA Y active Not Available Not Available No t Available Lantus Solostar U-100 Insulin 100 unit/mL (3 mL) subcutane ous pen INJECT 25 UNITS SUBCUTAN EOUS INJECTIO N DAILY active Not Available Not Available No t Available omeprazol e 20 mg tablet,de layed release 11/01 completed Medicati on ID: [id number] Re ason: () Brand Name: omeprazo le Send Method: E-Prescr ibed Sub s Allowed: subs OK Speci al Instruct ion: 1 pill po bid before meals Me dication GenericN kendell: omeprazo le Not Available Not Available Not Available FreeStyle Eminence Lite kit MONITOR BLOOD GLUCOSE 3 TIMES DAILY USE DIRECTED FOR TYPE 2 DIABETES MELLITUS active Not Available Not Available No t Available diclofena c 1 % topical gel APLIQUE AL JARRETT AFECTADA CUATRO VECES AL D A CUANDO SEA NECESARI O PARA EL DOLOR active Not Available Not Available No t Available GaviLyte- G 236 gram-22.7 4 gram-6.74 gram-5.86 gram oral solution PLEASE SEE ATTACHED FOR DETAILED DIRECTIO NS active Not Available Not Available No t Available Senexon-S 8.6 mg-50 mg tablet active Medicati on ID: [id number] B rand Name: Senexon- S Send Method: E-Prescr ibed Sub s Allowed: subs OK Medic ationGen ericName : Senexon- S Not Available Not Available Not Available fluoxetin e 60 mg tablet 11/01 completed Medicati on ID: [id number] Re ason: () Brand Name: fluoxeti ne Send Method: E-Prescr ibed Sub s Allowed: subs OK Medic ationGen ericName : fluoxeti ne Not Available Not Available Not Available QNASL 80 mcg/actua tion nasal aerosol spray 2014 active Medicati on ID: [id number] Du ration Value: 30 Prescri bed By Name: JAY Grissom nd Name: QNASL Se nd Method: E-Prescr ibed Sub s Allowed: subs OK Speci al Instruct ion: USE 2 SPRAYS IN EACH NOSTRIL EVERY DAY Medi cationGe nericNam e: QNASL Not Available Not Available Not Available Jardiance 10 mg tablet active Medicati on ID: [id number] B rand Name: Jardianc e Send Method: E-Prescr ibed Sub s Allowed: subs OK Speci al Instruct ion: TOME MARVIN TABLETA POR V A ORAL CADA MA JUANCARLOS Medi cationGe nericNam e: Jardianc e Not Available Not Available Not Available Wixela Inhub 250 mcg-50 mcg/dose powder for inhalatio n INHALE 1 PUFF POR V A ORAL DOS VECES AL D A active Not Available Not Available No t Available Vitals Date Recorded Body height Body mass index (BMI) Body weight Provider Name and Address Organization Details Last Updated DateTime 10/31/2024 157.48 cm 29.3 kg/m2 72364.78 g Jennifer Barry [place] - [facility] 10/31/2024 13:40:51 Date Recorded Body height Body weight Provider Name and Address Organization Details Last Updated DateTime 04/06/2024 162.56 cm 21685.89 g Juancarlos Richter [place] - [facility] 04/06/2024 10:07:07 Social History None recorded. Functional Status None recorded. Mental Status None recorded. Family History Nothing Reported. Medical History Condition Response High Cholesterol Y Thyroid Problems Y Asthma Y GERD/Reflux Y Hypertension Y Gynecological HistoryNo gynecological history recorded. Obstetrics History GPAL:G 0 P 0 0 0 0 Past Encounters Encounter ID Performer Location Encounter Start Date Encounter Closed Date Diagnosis/Indication Diagnosis SNOMED-CT Code Diagnosis ICD10 Code Diagnosis IMO Codes Diagnosis Note [id number] MICHAEL ZHENG MD [facility] [address] [address] 04/06/2024 09:51:18 04/06/2024 10:38:49 Adhesive middle ear disease 8564164 H74.11 Disorder o f right external ear 0238316848 416365 H61.891 Itching of skin 24927868 0 L29.9 Recommende d the use of over-the-c ounter cortisone cream as needed for itchiness. [id number] MICHAEL ZHENG MD [facility] [address] [address] 10/31/2024 12:56:36 10/31/2024 14:26:43 Mixed conductive and sensorineural hearing loss of right ear 6714762885 9105 H90.A31 Audiologic al evaluation results:Ri ght ear:Essent ially mild sloping to moderately severe at 6kHz raising to moderate with excellent word recognitio n.Left ear:Essent ially normal sloping to a moderate sensorineu ral hearing loss with excellent word recognitio n. Tympanomet ry:Right Ear:Type BLeft Ear:Type A Sensorineu ral hearing loss 12014588 H90.A22 Adhesive m iddle ear disease 8673818 H74.11 Health Concerns Section Related Observation LastModified by Organization Detai ls LastModified Time None Recorded Concern Status LastModified by Organization Details LastModified Time None Recorded Advance Directives Directive None Recorded Payers Insurance Date Sequence Insurance Name Policy Number Policy Muñoz Covered Member ID Muñoz Member ID Guarantor Name 10/27/2024 1 [facility] - DOS ON OR AFTER 2022 - DUAL ELIGIBLE - SENIOR LIVING OPTIONS AND ONE CARE (MEDICARE REPLACEMENT/AD VANTAGE - HMO) Laureen Gallardo Bertin [id number] Laureen Hedrickzman 04/06/2024 1 MEDICARE [place]: [employer] Laureen Gallardo [id number] Laureen Gallardo Bertin 09/14/2024 1 [facility] - DOS ON OR AFTER 2022 - SENIOR LIVING OPTIONS (MEDICARE REPLACEMENT/AD VANTAGE - HMO) Laureen Gallardo Bertin [id number] Laureen Gallardo Bertin Notes Date Note Type Note Provider Name and Address Organization Details Recorded Time 04/06/2024 text/html 63-year-old female who I took for right-sided tympanoplasty and mastoidectomy for right tympanic membrane perforation back in October 2010. This procedure was successful, though she continued to exhibit some eustachian tube dysfunction manifested by tympanic membrane retraction. Patient recently noted to have a pars flaccida retraction pocket with mild debris collection, but without signs of recurrent cholesteatoma. Patient comes back for 9 month reevaluation and maintenance of this retraction pocket cavity. She comes in today accompanied by her grandson who is helping to translate Maori. Patient noting leakiness on the right, and itchiness on the left MICHAEL ZHENG MD [address] [place] [address], [place], [address], [facility] - [facility] 04/06/2024 10:37:12 10/31/2024 text/html ROS as noted in the HPI 64 year old female presents for evaluation of the ears. She has a history of right-sided tympanoplasty and mastoidectomy for right tympanic membrane perforation in October 2010. This procedure was successful, though she continued to exhibit some eustachian tube dysfunction manifested by tympanic membrane retraction. In March 2024 patient was noted to have a pars flaccida retraction pocket with squamous plug that was successfully removed, but without signs of recurrent cholesteatoma. Today she reports she was referred by her PCP for hearing loss. She reports the hearing seems stable to her. The right ear is itchy but no pain. There is no otorrhea. Patient reports that while she notices the difference between the hearing in both ears, she hears perfectly fine and does not want to consider amplification technology. MICHAEL ZHENG MD [address] [place] [address], [phone], [facility] - [facility] 10/31/2024 14:24:51 OBGyn Episode No OBEpisode recorded.
--- OUTSIDE RECORDS SUMMARY | 2025-06-21 16:28 | XMS_ITS | Clinical Summary ---
Author Organization [facility] ity Address [address] [place] [address] Care Team Providers Care Campaign Management Senior Manager Name Role Phone Unavailable Primary Care Provider Unavailabl e Social History Tobacco Use Types Packs/Day Years Used Date Smoking Tobacco: Never Assessed Comments Unknown Sex and Gender Information Value Date Recorded Sex Assigned at Not on file Legal Sex Female 11:13 PM EST Gender Identity Not on file Sexual Orientation Not on file Plan of Treatment Health Maintenance Due Date Last Done Comments Breast Cancer Screening 1960 DTaP,Tdap,and Td Vaccines (1 - Tdap) 1977 Pneumococcal Vaccine: 50+ Ye ars (1 of 1 - PCV) 2008 Zoster Vaccines (1 of 2) 2008 Depression Screening 09/20/2024 COVID-19 Vaccine (1 - 2023-2 5 season) 2025 Influenza Vaccine (#1) 2025 RSV Immunization Adult Patie nts (1 - 1-dose 75+ series) 2033 HIB Vaccines Aged Out No longer eligi [...] on patient's age to complete this topic MMR Vaccines Aged Out No longer eligi ble based on patient's age to complete this topic Meningococcal ACWY Vaccine Aged Out N o longer eligible based on patient's age to complete this topic Meningococcal B Vaccine Aged Out No l onger eligible based on patient's age to complete this topic RSV Immunization Patients Un talya 20 months Aged Out No longer eligible b ased on patient's age to complete this topic Varicella Vaccines Aged Out No longer eligible based on patient's age to complete this topic
--- OUTSIDE RECORDS SUMMARY | 2025-06-21 16:28 | XMS_ITS | Clinical Summary ---
Author Organization [facility] Address [address] [place] [phone] Phone Care Team Providers Care Iron Molder Helper Name Role Phone Daniella Sanchez MD Primary Care Provider [phone] Allergies Active Allergy Reactions Criticality Noted Date Comments Atorvastatin Cough High 09/14/2024 Ibuprofen 09/14/2024 Penicillins 09/14/2024 Medications Diclofenac Sodium 1 % gel APLIQUE AL JARRETT AFECTADA CUATRO VECES AL D A CUANDO SEA NECESARIO PARA EL DOLOR 4 Active gabapentin (NEURONTIN) 400 MG capsule 4 Active FREESTYLE LITE test strip USE DIRECTED FOR TYPE 2 DIABETES MELLITUS, ON INSULIN, UP TO 3 TIMES/DAY 4 Active Lantus SoloStar 100 UNIT/ML injection INJECT 25 UNITS SUBCUTANEOUS INJECTION DAILY 4 Active B-D ULTRAFINE III SHORT PEN 31G X 8 MM misc USE ONE DAILY 4 Active loratadine (CLARITIN) 10 MG tablet TOME 1 TABLETA POR V A ORAL TODOS LOS D 4 Active omeprazole (PriLOSEC) [address] capsule TOME 1 C PSULA POR V A ORAL TODOS LOS D 4 Active simvastatin (ZOCOR) 20 MG tablet TOME 1 TABLETA POR V A ORAL TODOS LOS D EN LA NOCHE STOP ATORVASTATIN 4 Active Januvia 100 MG tablet TOME 1 TABLETA POR V A ORAL TODOS LOS D 4 Active triamcinolone (KENALOG) 0.025 % cream APLIQUE AL JARRETT AFECTADA DOS VECES AL D A POR 2 SEMANAS 4 Active lisinopril 40 MG tablet Take 40 mg by mouth 1 (one) time each day 5 Active Active Problems Problem Noted Date Diagnosed Date Anemia Asthma Chronic mastoiditis Diabetes mellitus without me ntion of complication, type II or unspecified type, not stated as uncontrolled Hearing loss Hypothyroidism Obstructive sleep apnea syndrome Social History Tobacco Use Types Packs/Day Years Used Date Smoking Tobacco: Never Assessed Comments Unknown Sex and Gender Information Value Date Recorded Sex Assigned at Not on file Legal Sex Female 3:33 PM EDT Gender Identity Not on file Sexual Orientation Not on file Last Filed Vital Signs Vital Sign Reading Time Taken Comments Blood Pressure 138/82 01/23/2025 11:09 AM EDT Pulse 59 01/23/2025 11:09 AM EDT Temperature - - Respiratory Rate - - Oxygen Saturation 97% 01/23/2025 11:09 AM EDT Inhaled Oxygen Concentration - - Weight 67.1 kg (148 lb) 01/23/2025 11:09 AM EDT Height - - Body Mass Index - - Plan of Treatment Upcoming Encounters Date Type Department Care Team (Late st Contact Info) Description 01/22/2026 1:15 PM EDT Office Visit [facility] P.. [address] [phone] Caleb Escobar MD [address] [phone] Health Maintenance Due Date Last Done Comments Breast Cancer Screening 1960 Pneumococcal Vaccine: 50+ Ye ars (1 of 2 - PCV) 1977 Colorectal Cancer Screening: Annual FOBT 2007 Colorectal Cancer Screening: Colonoscopy 2007 Colorectal Cancer Screening: Sigmoidoscopy 2007 Diabetes: Hemoglobin A1C 08/22/2024 Diabetes: Ophthalmology Exam 08/22/2024 Diabetes: Pedal Pulse Checked 08/22/2024 Diabetes: Sensory Foot Exam 08/22/2024 Diabetes: Visual Foot Exam 08/22/2024 Influenza Vaccine (#1) 2025 Hepatitis B Vaccine Aged Out No longe r eligible based on patient's age to complete this topic Insurance * Guarantor: Laureen Denton Account Type Relation to Patient Date of Phone Billing Address Personal/Family Self 1960 [address] [place] [address] [facility] [place] [phone] Care Teams Iron Molder Helper Relationship Specialty Start Date End Date Daniella Sanchez MD [address] [place] [address] PCP - General Internal Medicine 07/05/24
== END 2025-06-21 15:07 | disposition home or self-care (01) ==
PROVIDERS: Emergency Provider Emergency Medicine
DX: B37.31 Acute candidiasis of vulva and vagina (principal); L29.2 Pruritus vulvae
CPT/HCPCS: 99282; 99283